=== PATIENT | male | born 1945 | race Caucasian/White ===

== ENCOUNTER 2020-02-17 20:37 | Inpatient (IN) | payer MEDICARE, OTHER ==
[~2020-02-17] VITALS: Ht 180.3 cm; Wt 82.2 kg
[2020-02-17 20:40] VITALS: BP 115/51
[2020-02-17] MEDS ORDERED: KEPPRA500 M4 ORAL (20:55)
[2020-02-17] MEDS ORDERED: ATORVASTATIN CA40 MG ORAL (20:55)
[2020-02-17] MEDS ORDERED: COREG6.25 MG ORAL (20:55)
[2020-02-17] MEDS ORDERED: PROSCAR5 MG ORAL (20:55)
[2020-02-17] MEDS ORDERED: ASPIRIN81 MG ORAL (20:55)
[2020-02-17] MEDS ORDERED: FERROUS SULFAT325 MG ORAL (20:55)
[2020-02-17] MEDS ORDERED: FLOMAX0.4 MG ORAL (20:55)
[2020-02-17] MEDS ORDERED: LANTUS SOL100 UNIT/1 SUBQ ×2 (21:00)
--- NOTE | 2020-02-17 21:19 | Emergency Room Report ---
History of Present Illness General Chief Complaint: Dyspnea/Respdistress Source: Medical Record, EMS Present Illness HPI Patient sent in from longterm [facility] for shortness of breath. Apparently tested positive for COVID-19 a few weeks ago. He was transported by EMS. Allegedly he was satting at 90% on 100% nonrebreather. Blood glucose in the field 450. Initial oxygen saturation 82%. Patient is unable to answer questions. Supporting medical records have little previous medical history. History of diabetes. The patient is unable to answer questions. From his chest x-ray there is a ventriculoperitoneal shunt. 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 Social History Narrative group home facility Reviewed Nursing Documentation: PMH: Agreed; PSxH: Agreed Nursing Documentation-PMH Hx Cardiac Problems: Yes - hyperlipedemia Hx Diabetes: Yes - insulin dependent Review of Systems All Other Systems: limited Physical Exam Vital Signs Date Time Temp Pulse Resp B/P (MAP) Pulse Ox O2 Delivery O2 Flow Rate FiO2 02/17/20 20:38 98.4 88 27 121/66 (84) 90 Non-Rebreather Sp02 EP Interpretation: reviewed, abnormal - As interpreted by me General Appearance: mild distress, lethargic, thin, Chronically Ill Eyes: bilateral eye PERRL ENT: moist mucus membranes Neck: supple Respiratory: respiratory distress, rales Cardiovascular #1: regular rate, rhythm, edema - Hands and feet Cardiovascular #2: 2+ radial (R) Gastrointestinal: no guarding, tenderness - Although patient seems to react to any tactile stimuli, decreased bowel sounds Genitourinary: penis normal Musculoskeletal: back normal, decreased range of motion Neurologic: DTRs symmetric - Decreased, sensory intact - All 4, motor weakness - All 4 Psychiatric: depressed affect Skin: no rash, Decubitus/Ulcer, warm/dry Medical Decision Making PA Attestation Patient presents with dyspnea and hypoxia with history of prior COVID-19 infection. Differential includes acute myocardial infarction, pneumonia, sepsis full interval is COVID-19 of infection from other source, congestive heart failure amongst others. The patient has anasarca. He is satting 100% on a nonrebreather at this time but still tachypneic. Patient placed on a finished metal repairer. Evaluation with EKG, blood cultures, chest x-ray and labs including COVID-19 rapid test. Diagnostic Impression: Primary Impression: Pneumonia involving left lung Qualified Codes: J18.9 - Pneumonia, unspecified organism Additional Impressions: Hypoxia UTI (urinary tract infection) Qualified Codes: N39.0 - Urinary tract infection, site not specified Renal failure Qualified Codes: N19 - Unspecified kidney failure Hyperglycemia COVID-19 Sacral decubitus ulcer Qualified Codes: L89.153 - Pressure ulcer of sacral region, stage 3 Malnutrition Qualified Codes: E43 - Unspecified severe protein-calorie malnutrition ER Course Patient presents with dyspnea and hypoxia with history of COVID-19 a few weeks ago. Differential includes acute myocardial infarction, pneumonia, congestive heart failure, COVID-19, pulmonary embolus and others. Evaluated with EKG, chest x-ray and labs. Patient is satting 100% although dyspneic at this time. Blood gases ordered. The patient also is placed on a finished metal repairer. Complex patient as unable to get history from medical records and patient unable to provide history. EKG without injury. Blood gas O2 of 66 CO2 of 27 and pH is 7.25 with a bicarb of 17. This is mixed respiratory alkalosis primarily with possibly metabolic acidosis. CXR with COPD and bilateral infiltrates, worse on L. Antibiotics ordered 2136 Labs with minimally elevated white count but left shift. Anemia. Renal failure. Elevated C-reactive protein. Adding gent and vancomycin for UTI. Covid + - added dexamethasone. 2226 Patient mentation unchanged. Vital signs stable. Patient admitted to telemetry unit. Prognosis poor. Laboratory Tests Test 02/17/20 20:30 02/17/20 21:03 02/18/20 06:40 02/18/20 10:57 White Blood Count 11.9 K/UL (4.8-10.8) H 11.8 K/UL (4.8-10.8) H Red Blood Count 3.02 M/UL (4.70-6.10) L 2.99 M/UL (4.70-6.10) L Hemoglobin 8.8 G/DL (14.2-18.0) L 8.5 G/DL (14.2-18.0) L Hematocrit 25.5 % (42.0-52.0) L 24.9 % (42.0-52.0) L Mean Corpuscular Volume 84 FL (80-99) 83 FL (80-99) Mean Corpuscular Hemoglobin 29.0 PG (27.0-31.0) 28.3 PG (27.0-31.0) Mean Corpuscular Hemoglobin Concent 34.3 G/DL (32.0-36.0) 33.9 G/DL (32.0-36.0) Red Cell Distribution Width 13.6 % (11.6-14.8) 13.3 % (11.6-14.8) Platelet Count 190 K/UL (150-450) 230 K/UL (150-450) Mean Platelet Volume 7.0 FL (6.5-10.1) 6.6 FL (6.5-10.1) Neutrophils (%) (Auto) % (45.0-75.0) % (45.0-75.0) Lymphocytes (%) (Auto) % (20.0-45.0) % (20.0-45.0) Monocytes (%) (Auto) % (1.0-10.0) % (1.0-10.0) Eosinophils (%) (Auto) % (0.0-3.0) % (0.0-3.0) Basophils (%) (Auto) % (0.0-2.0) % (0.0-2.0) Differential Total Cells Counted 100 100 Neutrophils % (Manual) 87 % (45-75) H 95 % (45-75) H Lymphocytes % (Manual) 8 % (20-45) L 4 % (20-45) L Monocytes % (Manual) 2 % (1-10) 1 % (1-10) Eosinophils % (Manual) 3 % (0-3) 0 % (0-3) Basophils % (Manual) 0 % (0-2) 0 % (0-2) Band Neutrophils 0 % (0-8) 0 % (0-8) Platelet Estimate Adequate Adequate Platelet Morphology Normal Normal Red Blood Cell Morphology Normal D-Dimer 10.95 mg/L FEU (0.00-0.49) H Urine Color Brown Urine Appearance Turbid Urine pH 6 (4.5-8.0) Urine Specific [place] 1.010 (1.005-1.035) Urine Protein 3+ (NEGATIVE) H Urine Glucose (UA) Negative (NEGATIVE) Urine Ketones Negative (NEGATIVE) Urine Blood 5+ (NEGATIVE) H Urine Nitrite Negative (NEGATIVE) Urine Bilirubin Negative (NEGATIVE) Urine Urobilinogen Normal MG/DL (0.0-1.0) Urine Leukocyte Esterase 3+ (NEGATIVE) H Urine RBC Tntc /HPF (0 - 0) H Urine WBC Tntc /HPF (0 - 0) H Urine Squamous Epithelial Cells None /LPF (NONE/OCC) Urine Bacteria Many /HPF (NONE) H Urine Yeast Many /HPF (NONE) H Sodium Level 137 MMOL/L (136-145) 140 MMOL/L (136-145) Potassium Level 4.6 MMOL/L (3.5-5.1) 4.6 MMOL/L (3.5-5.1) Chloride Level 104 MMOL/L (98-107) 106 MMOL/L (98-107) Carbon Dioxide Level 21 MMOL/L (21-32) 22 MMOL/L (21-32) Anion Gap 12 mmol/L (5-15) 12 mmol/L (5-15) Blood Urea Nitrogen 54 mg/dL (7-18) H 52 mg/dL (7-18) H Creatinine 2.8 MG/DL (0.55-1.30) H 2.5 MG/DL (0.55-1.30) H Estimated Glomerular Filtration Rate 22.1 mL/min (>60) 25.2 mL/min (>60) Glucose Level 348 MG/DL (74-106) H 214 MG/DL (74-106) #H Lactic Acid Level 2.00 mmol/L (0.4-2.0) Calcium Level 8.5 MG/DL (8.5-10.1) 8.3 MG/DL (8.5-10.1) L Magnesium Level 1.8 MG/DL (1.8-2.4) Total Bilirubin 0.4 MG/DL (0.2-1.0) Aspartate Amino Transferase (AST) 42 U/L (15-37) H Alanine Aminotransferase (ALT) 21 U/L (12-78) Alkaline Phosphatase 185 U/L (46-116) H Troponin I 0.000 ng/mL (0.000-0.056) C-Reactive Protein, Quantitative 36.4 mg/dL (0.00-0.90) H Pro-B-Type Natriuretic Peptide 4328 pg/mL (0-125) H Total Protein 7.0 G/DL (6.4-8.2) Albumin 1.5 G/DL (3.4-5.0) L Globulin 5.5 g/dL Albumin/Globulin Ratio 0.3 (1.0-2.7) L Arterial Blood pH 7.425 (7.350-7.450) 7.453 (7.350-7.450) Arterial Blood Partial Pressure CO2 27.8 mmHg (35.0-45.0) L 24.1 mmHg (35.0-45.0) *L Arterial Blood Partial Pressure O2 66.6 mmHg (75.0-100.0) L 51.5 mmHg (75.0-100.0) L Arterial Blood HCO3 17.8 mmol/L (22.0-26.0) *L 16.5 mmol/L (22.0-26.0) *L Arterial Blood Oxygen Saturation 92.1 % (95-100) L 86.0 % (95-100) *L Arterial Blood Base Excess -5.7 (-2-2) L -6.4 (-2-2) L Nba Test Positive Positive Hypochromasia 1+ Levetiracetam Level Pending Microbiology Date/Time Source Procedure Growth Status 02/17/20 20:30 Nasopharynx SARS-CoV-2 RdRp Gene Assay - Final Complete Rhythm Strip Diag. Results EP Interpretation: yes Rhythm: NSR, no PVC's, no ectopy Chest X-Ray Diagnostic Results Chest X-Ray Diagnostic Results : Chest X-Ray Ordered: Yes Indication: Shortness of Breath EP Interpretation: Yes Interpretation: no effusion, no pneumothorax, other - bilateral infiltrates , worse on left Impression: Other Last Vital Signs Date Time Temp Pulse Resp B/P (MAP) Pulse Ox O2 Delivery O2 Flow Rate FiO2 02/18/20 08:00 96.6 80 22 109/64 (79) 96 02/18/20 01:15 Non-Rebreather 15.0 02/17/20 23:30 97 Status: improved Disposition: ADMITTED INPATIENT Condition: Serious German Delarosa MD Feb 17, 2020 21:19
[2020-02-17 21:25] LABS: HEMATOCRIT 25.5 % (42.0-52.0); HEMOGLOBIN 8.8 G/DL (14.2-18.0); MEAN CORPUSCULAR VOLUME 84 FL (80-99); PLATELET COUNT 190 K/UL (150-450); RED BLOOD COUNT 3.02 M/UL (4.70-6.10); RED CELL DISTRIBUTION WIDTH 13.6 % (11.6-14.8); WHITE BLOOD COUNT 11.9 K/UL (4.8-10.8)
[2020-02-17 21:33] LABS: ANION GAP 12 mmol/L (5-15); BLOOD UREA NITROGEN 54 mg/dL (7-18); CALCIUM 8.5 MG/DL (8.5-10.1); CARBON DIOXIDE 21 MMOL/L (21-32); CHLORIDE 104 MMOL/L (98-107); CREATININE 2.8 MG/DL (0.55-1.30); POTASSIUM 4.6 MMOL/L (3.5-5.1); SODIUM 137 MMOL/L (136-145)
--- NOTE | 2020-02-17 21:39 | Diagnostic Imaging Report ---
EXAM: XR Chest, 1 View CLINICAL HISTORY: SOB TECHNIQUE: Frontal view of the chest. COMPARISON: No relevant prior studies available. FINDINGS: Lungs: Diffuse airspace opacities, predominantly within the left lung, which may be inflammatory or infectious. Pleural space: Unremarkable. Heart: Unremarkable. Mediastinum: Unremarkable. Bones/joints: Unremarkable. Tubes, lines and devices: Catheter projects over the right lower neck, thorax, and upper abdomen likely PATIENT INSURANCE CLERK shunt catheter. IMPRESSION: Diffuse airspace opacities, predominantly within the left lung, which may be inflammatory or infectious. An element of pulmonary vascular congestion is not excluded.
[2020-02-17 21:43] LABS: ALANINE AMINOTRANSFERASE 21 U/L (12-78); ALBUMIN 1.5 G/DL (3.4-5.0); ALBUMIN/GLOBULIN RATIO 0.3 (1.0-2.7); ALKALINE PHOSPHATASE 185 U/L (46-116); ASPARTATE AMINO TRANSFERASE 42 U/L (15-37); BILIRUBIN,TOTAL 0.4 MG/DL (0.2-1.0)
[2020-02-17] MEDS ORDERED: cefTRIAXone 1 GM in NS 55 ML IVPB ONE (21:45)
[2020-02-17] MEDS ORDERED: Azithromycin 500 MG in D5W 275 ML IVPB ONE (21:45)
[2020-02-17 21:58] LABS: APPEARANCE,URINE TURBID; BILIRUBIN, URINE NEGATIVE (NEGATIVE); GLUCOSE, URINE (UA) NEGATIVE (NEGATIVE); KETONES,URINE NEGATIVE (NEGATIVE); LEUKOCYTE ESTERASE ,URINE 3+ (NEGATIVE); NITRITE,URINE NEGATIVE (NEGATIVE); PH,URINE 6 (4.5-8.0); PROTEIN,URINE 3+ (NEGATIVE); UROBILINOGEN,URINE NORMAL MG/DL (0.0-1.0)
[2020-02-17 22:02] LABS: COLOR,URINE BROWN
[2020-02-17] MEDS ORDERED: Vancomycin 1 GM in NS 275 ML IVPB ONE (22:30)
[2020-02-17] MEDS ORDERED: Gentamicin 120mg/100ml NS INJ 100 ML IVPB ONE (22:30)
[2020-02-17 23:30] VITALS: BP 131/76
[2020-02-18] VITALS (12 sets, daily range): BP systolic 94–136; BP diastolic 33–64
[2020-02-18] MEDS ORDERED: Albuterol 90mcg Inhaler 8gm INH PRN ×2 (03:15→15:37)
[2020-02-18] MEDS ORDERED: NovoLOG Insulin Flexpen SUBQ SCH ×2 (06:30→12:00)
[2020-02-18 07:15] LABS: HEMATOCRIT 24.9 % (42.0-52.0); HEMOGLOBIN 8.5 G/DL (14.2-18.0); MEAN CORPUSCULAR VOLUME 83 FL (80-99); PLATELET COUNT 230 K/UL (150-450); RED BLOOD COUNT 2.99 M/UL (4.70-6.10); RED CELL DISTRIBUTION WIDTH 13.3 % (11.6-14.8); WHITE BLOOD COUNT 11.8 K/UL (4.8-10.8)
[2020-02-18 07:28] LABS: ANION GAP 12 mmol/L (5-15); BLOOD UREA NITROGEN 52 mg/dL (7-18); CALCIUM 8.3 MG/DL (8.5-10.1); CARBON DIOXIDE 22 MMOL/L (21-32); CHLORIDE 106 MMOL/L (98-107); CREATININE 2.5 MG/DL (0.55-1.30); POTASSIUM 4.6 MMOL/L (3.5-5.1); SODIUM 140 MMOL/L (136-145)
[2020-02-18] MEDS: Aspirin Baby 81mg ORAL SCH ×2 (09:00→09:10)
[2020-02-18] MEDS: Carvedilol 6.25mg Tab ORAL SCH ×3 (09:00→20:24)
[2020-02-18] MEDS ORDERED: dexAMETHasone 10mg/ml Inj IV SCH ×2 (09:00→09:55)
[2020-02-18] MEDS: Enoxaparin 30mg Inj SUBQ SCH ×2 (09:00→10:44)
[2020-02-18] MEDS: Tamsulosin 0.4mg cap ORAL SCH ×2 (09:00→09:10)
--- NOTE | 2020-02-18 09:41 | History & Physical ---
History and Physical History & Physicial History and Physical HPI Patient is a 75 year old man,admitted from detention facility with shortness of breath,noted to have Pneumonia, recently tested positive for COVID- 19, O2 sats 90% on 100% nonrebreather. 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 Social History:lives in detention facility Family History: NA Physical Exam Vital Signs Noted Date Time Temp Pulse Resp B/P (MAP) Pulse Ox O2 Delivery O2 Flow Rate FiO2 02/17/20 20:38 98.4 88 27 121/66 (84) 90 Non-Rebreather WDWN NEENT:NCAT Chest: Bilateral rales Heart: HS1, HS2, RRR Abdomen: SNTND Extremities: Well perfused, no edema ENTERPRISE SYSTEMS MANAGER: Intact Impression: COVID 19 Pneumonia i Respiratory failure with Hypoxia Urinary tract infection Renal Impairment Diabetes Hyperlipidemia Previous ASSISTANT CLINICAL DIRECTOR shunt Plan IV Antibiotics Decadrom O2 PRN PPX ISS Monitor labs PTAMedications ID Consultation Renal Consultation EKG ABG: pO2 66 pCO2 27 pH 7.25 bicarb of 17. EKG: Rhythm: NSR, no PVC's, no ectopy Chest X-Ray: no effusion, no pneumothorax, other - bilateral infiltrates, worse on left German Leung MD Feb 18, 2020 09:41
[2020-02-18] MEDS ORDERED: dexAMETHasone 10mg/ml Inj PF*Surgery use IV SCH (09:50)
--- NOTE | 2020-02-18 10:37 | Consultation ---
History of Present Illness General Date patient seen: Feb 18, 2020 Chief Complaint: Dyspnea/Respdistress Present Illness HPI This is a 75-year-old male multiple medical comorbidities who is a long-term resident that presented to [facility] with shortness of breath and respiratory distress. Per report patient was COVID positive a few weeks ago has been recovering since. Desaturating and admitted further care and management. On admission identified to have low body weight hypoalbuminemia malnutrition failure to thrive and unstageable decubitus ulcer and multiple skin concerns and wounds. Surgery called to eval and assist with care. Patient seen, patient evaluated, chart reviewed Allergies: Coded Allergies: IODINE (Verified Allergy, Unknown, 02/17/20) Uncoded Allergies: SHELLFISH (Allergy, Unknown, 02/17/20) Medication History Scheduled Amino Acids/Protein Hydrolys (Pro-Stat Liquid), 30 ML ORAL DAILY, (Reported) Aspirin* (Aspirin*), 81 MG ORAL DAILY, (Reported) Atorvastatin Calcium* (Atorvastatin Calcium*), 40 MG ORAL BEDTIME, (Reported) Carvedilol (Coreg), 6.25 MG ORAL EVERY 12 HOURS, (Reported) Ferrous Sulfate* (Ferrous Sulfate*), 325 MG ORAL DAILY, (Reported) Finasteride* (Proscar*), 5 MG ORAL DAILY, (Reported) Insulin Glargine (Lantus), 0 SUBQ BEDTIME, (Reported) Insulin Glargine (Lantus), 10 SUBQ am, (Reported) Insulin Glargine (Lantus), 20 UNITS SUBQ AFTERNOON, (Reported) Levetiracetam (Keppra), 500 MG ORAL EVERY 12 HOURS, (Reported) Tamsulosin HCl (Flomax), 0.4 MG ORAL DAILY, (Reported) Scheduled PRN Magnesium Hydroxide* (Milk Of Magnesia*), 30 ML ORAL DAILY PRN for Constipation, (Reported) Na Phos,M-B/Na Phos,Di-Ba* (Fleet Enema*), 133 ML RECTAL DAILY PRN for Constipation, (Reported) Patient History Limited by: age, medical condition History Provided By: Medical Record, PMD Healthcare decision maker Resuscitation status Advanced Directive on File Past Medical/Surgical History Past Medical/Surgical History: (1) Hypoxia (2) UTI (urinary tract infection) (3) Pneumonia involving left lung (4) COVID-19 Review of Systems All Other Systems: negative except mentioned in HPI ROS Narrative Limited given patient's medical condition Physical Exam General Appearance: no apparent distress Lines, tubes and drains: peripheral HEENT: normocephalic, atraumatic, anicteric, mucous membranes moist Neck: supple, normal inspection Respiratory/Chest: chest wall non-tender, no respiratory distress, no accessory muscle use, decreased breath sounds Cardiovascular/Chest: normal rate, regular rhythm Abdomen: soft, no organomegaly, no mass, other Genitourinary/Rectal: normal rectal exam Extremities: non-tender, normal inspection, slow capillary refill, trace edema Skin Exam: warm/dry Last 24 Hour Vital Signs Date Time Temp Pulse Resp B/P (MAP) Pulse Ox O2 Delivery O2 Flow Rate FiO2 02/18/20 08:00 96.6 80 22 109/64 (79) 96 02/18/20 07:50 82 02/18/20 04:00 97.9 73 28 136/62 (86) 93 02/18/20 01:15 Non-Rebreather 15.0 02/18/20 00:00 96.8 84 28 104/64 (77) 92 02/18/20 00:00 78 02/17/20 23:30 98.4 78 30 131/76 97 Non-Rebreather 15.0 97 02/17/20 23:30 98.4 78 30 131/76 97 Non-Rebreather 15.0 97 02/17/20 20:40 87 25 Non-Rebreather 15.0 97 02/17/20 20:40 98.6 87 25 115/51 97 Non-Rebreather 15.0 02/17/20 20:38 98.4 88 27 121/66 (84) 90 Non-Rebreather Intake and Output 02/17/20 02/18/20 19:00 07:00 Intake Total 1000 ml Output Total 550 ml Balance 450 ml Intake IV Total 1000 ml Output Urine Total 550 ml Laboratory Tests Test 02/17/20 20:30 02/17/20 21:03 02/18/20 06:40 White Blood Count 11.9 K/UL (4.8-10.8) H 11.8 K/UL (4.8-10.8) H Red Blood Count 3.02 M/UL (4.70-6.10) L 2.99 M/UL (4.70-6.10) L Hemoglobin 8.8 G/DL (14.2-18.0) L 8.5 G/DL (14.2-18.0) L Hematocrit 25.5 % (42.0-52.0) L 24.9 % (42.0-52.0) L Mean Corpuscular Volume 84 FL (80-99) 83 FL (80-99) Mean Corpuscular Hemoglobin 29.0 PG (27.0-31.0) 28.3 PG (27.0-31.0) Mean Corpuscular Hemoglobin Concent 34.3 G/DL (32.0-36.0) 33.9 G/DL (32.0-36.0) Red Cell Distribution Width 13.6 % (11.6-14.8) 13.3 % (11.6-14.8) Platelet Count 190 K/UL (150-450) 230 K/UL (150-450) Mean Platelet Volume 7.0 FL (6.5-10.1) 6.6 FL (6.5-10.1) Neutrophils (%) (Auto) % (45.0-75.0) % (45.0-75.0) Lymphocytes (%) (Auto) % (20.0-45.0) % (20.0-45.0) Monocytes (%) (Auto) % (1.0-10.0) % (1.0-10.0) Eosinophils (%) (Auto) % (0.0-3.0) % (0.0-3.0) Basophils (%) (Auto) % (0.0-2.0) % (0.0-2.0) Differential Total Cells Counted 100 Neutrophils % (Manual) 87 % (45-75) H Pending Lymphocytes % (Manual) 8 % (20-45) L Pending Monocytes % (Manual) 2 % (1-10) Eosinophils % (Manual) 3 % (0-3) Basophils % (Manual) 0 % (0-2) Band Neutrophils 0 % (0-8) Platelet Estimate Adequate Pending Platelet Morphology Normal Pending Red Blood Cell Morphology Normal D-Dimer 10.95 mg/L FEU (0.00-0.49) H Urine Color Brown Urine Appearance Turbid Urine pH 6 (4.5-8.0) Urine Specific [place] 1.010 (1.005-1.035) Urine Protein 3+ (NEGATIVE) H Urine Glucose (UA) Negative (NEGATIVE) Urine Ketones Negative (NEGATIVE) Urine Blood 5+ (NEGATIVE) H Urine Nitrite Negative (NEGATIVE) Urine Bilirubin Negative (NEGATIVE) Urine Urobilinogen Normal MG/DL (0.0-1.0) Urine Leukocyte Esterase 3+ (NEGATIVE) H Urine RBC Tntc /HPF (0 - 0) H Urine WBC Tntc /HPF (0 - 0) H Urine Squamous Epithelial Cells None /LPF (NONE/OCC) Urine Bacteria Many /HPF (NONE) H Urine Yeast Many /HPF (NONE) H Sodium Level 137 MMOL/L (136-145) 140 MMOL/L (136-145) Potassium Level 4.6 MMOL/L (3.5-5.1) 4.6 MMOL/L (3.5-5.1) Chloride Level 104 MMOL/L (98-107) 106 MMOL/L (98-107) Carbon Dioxide Level 21 MMOL/L (21-32) 22 MMOL/L (21-32) Anion Gap 12 mmol/L (5-15) 12 mmol/L (5-15) Blood Urea Nitrogen 54 mg/dL (7-18) H 52 mg/dL (7-18) H Creatinine 2.8 MG/DL (0.55-1.30) H 2.5 MG/DL (0.55-1.30) H Estimat Glomerular Filtration Rate 22.1 mL/min (>60) 25.2 mL/min (>60) Glucose Level 348 MG/DL (74-106) H 214 MG/DL (74-106) #H Lactic Acid Level 2.00 mmol/L (0.4-2.0) Calcium Level 8.5 MG/DL (8.5-10.1) 8.3 MG/DL (8.5-10.1) L Magnesium Level 1.8 MG/DL (1.8-2.4) Total Bilirubin 0.4 MG/DL (0.2-1.0) Aspartate Amino Transf (AST/SGOT) 42 U/L (15-37) H Alanine Aminotransferase (ALT/SGPT) 21 U/L (12-78) Alkaline Phosphatase 185 U/L (46-116) H Troponin I 0.000 ng/mL (0.000-0.056) C-Reactive Protein, Quantitative 36.4 mg/dL (0.00-0.90) H Pro-B-Type Natriuretic Peptide 4328 pg/mL (0-125) H Total Protein 7.0 G/DL (6.4-8.2) Albumin 1.5 G/DL (3.4-5.0) L Globulin 5.5 g/dL Albumin/Globulin Ratio 0.3 (1.0-2.7) L Arterial Blood pH 7.425 (7.350-7.450) Arterial Blood Partial Pressure CO2 27.8 mmHg (35.0-45.0) L Arterial Blood Partial Pressure O2 66.6 mmHg (75.0-100.0) L Arterial Blood HCO3 17.8 mmol/L (22.0-26.0) *L Arterial Blood Oxygen Saturation 92.1 % (95-100) L Arterial Blood Base Excess -5.7 (-2-2) L Nba Test Positive Levetiracetam (Keppra) Level Pending Microbiology Date/Time Source Procedure Growth Status 02/17/20 20:30 Nasopharynx SARS-CoV-2 RdRp Gene Assay - Final Complete Height (Feet): 5 Height (Inches): 11.00 Weight (Pounds): 175 Medications Current Medications Medications (Trade) Dose Ordered Sig/Carlos A Route PRN Reason Start Time Stop Time Status Last Admin Dose Admin Acetaminophen (Tylenol) 650 mg Q6H PRN ORAL For Headache 02/18/20 03:15 03/19/20 03:14 Albuterol Sulfate (Proventil MDI) 2 puff Q6H PRN INH Shortness of Breath 02/18/20 03:15 05/18/20 03:14 Aspirin (ASA) 81 mg DAILY ORAL 02/18/20 09:00 04/03/20 08:59 Atorvastatin Calcium (Lipitor) 40 mg BEDTIME ORAL 02/18/20 21:00 05/18/20 20:59 Carvedilol (Coreg) 6.25 mg EVERY 12 HOURS ORAL 02/18/20 09:00 03/19/20 08:59 Ceftriaxone Sodium 1 gm/ Dextrose 55 ml @ 110 mls/hr Q24H IVPB 02/18/20 21:00 02/25/20 20:59 Dexamethasone Sodium Phosphate (Decadron 10mg/ ml Inj) 6 mg DAILY IV 02/18/20 09:55 05/18/20 09:54 02/18/20 10:15 Dextrose (Dextrose 50%) 25 ml Q30M PRN IV Hypoglycemia 02/18/20 03:15 05/18/20 03:14 Dextrose (Dextrose 50%) 50 ml Q30M PRN IV Hypoglycemia 02/18/20 03:15 05/18/20 03:14 Enoxaparin Sodium (Lovenox) 30 mg DAILY SUBQ 02/18/20 09:00 05/18/20 08:59 Ferrous Sulfate (Feosol) 325 mg DAILY ORAL 02/18/20 09:00 05/18/20 08:59 Finasteride (Proscar) 5 mg DAILY ORAL 02/18/20 09:00 05/18/20 08:59 Insulin Aspart (NovoLOG) BEFORE MEALS AND HS SUBQ 02/18/20 06:30 05/18/20 06:29 02/18/20 06:21 Ivermectin (StromectoL) 15 mg ONCE ORAL 02/18/20 12:00 02/18/20 14:00 Levetiracetam (Keppra) 500 mg EVERY 12 HOURS ORAL 02/18/20 09:00 04/03/20 08:59 Ondansetron HCl (Zofran) 4 mg Q6H PRN IVP Nausea & Vomiting 02/18/20 03:15 03/19/20 03:14 Tamsulosin HCl (Flomax) 0.4 mg DAILY ORAL 02/18/20 09:00 03/19/20 08:59 Assessment/Plan Problem List: (1) Sacral decubitus ulcer Assessment & Plan: Pt presented on admission with multiple Pressure injuries, MASD. Ecchymotic areas R ventral forearm. Unstageable Sacral Pressure injury(L)11cm x (W)9.5cm. Base of wound is 25% kinza, 75%scattered areas of mixed soft necrosis and slough. Borders are irregular and macerated. Periwound is indurated with additional erythema and shearing. Partial thickness Pressure injury upper R Buttocks(L)2.2cm x (W)1.5cm. Base of wound is moist and viable. Edges flat and adherent to base of wound. MASD Suprapubis, penis ,scrotum ,Elvia-anal,and medial/ posterior upper aspects of both thighs.Affected areas are erythematous with scattered satellite lesions. Full thickness ulcer distal /medial L lower ext in close proximity medial malleolus(L)1.8cm x (W)1.6cm. Base of wound is 90% dry brown eschar cap ,10% kinza . Edges adherent to base of wound. No elevation in skin temp, erythema or induration periwound. R Heel is boggy with non-Blanchable erythema. L Heel is boggy but blanchable. R 1st metatarsal nailbed and matrix are black.NO erythema or changes in skin temp or colour noted to R 1st metatarsal. Tx.Plan: Cleanse Sacral wound with Saline. Apply TheraHoney. Apply Moisture Barrier Periwound. Cover with Optifoam drsg Daily and prn. Cleanse wound distal/ medial L lower ext. Apply Cavilon Skin Barrier periwound. Cover with Optifoam drsg. Change every 3 days and prn. Apply Cavilon Skin Barrier to bilat heels and Malleoli. Cover each site with Optifoam drsg. Change every 7 days and prn. Reposition at least every 2hours or as tolerated. Off-load heels with pillow. APM/SHAREE Mattress overlay. ICD Codes: L89.159 - Pressure ulcer of sacral region, unspecified stage SNOMED: 649870310 Qualifiers: Qualified Codes: L89.153 - Pressure ulcer of sacral region, stage 3 (2) Malnutrition ICD Codes: E46 - Unspecified protein-calorie malnutrition SNOMED: 71287650 Qualifiers: Qualified Codes: E43 - Unspecified severe protein-calorie malnutrition (3) Leukocytosis ICD Codes: D72.829 - Elevated white blood cell count, unspecified SNOMED: 041970724, 342240798 (4) Hypoxia ICD Codes: R09.02 - Hypoxemia SNOMED: 452354120 (5) UTI (urinary tract infection) ICD Codes: N39.0 - Urinary tract infection, site not specified SNOMED: 25813199 Qualifiers: Qualified Codes: N39.0 - Urinary tract infection, site not specified (6) Pneumonia involving left lung ICD Codes: J18.9 - Pneumonia, unspecified organism SNOMED: 630892439 Qualifiers: Qualified Codes: J18.9 - Pneumonia, unspecified organism (7) COVID-19 ICD Codes: U07.1 - COVID-19 SNOMED: 797194924 Jorge Howard Feb 18, 2020 10:37
[2020-02-18] MEDS ORDERED: D5 1/2NS 1,000 ML IV SCH ×2 (10:45→12:00)
--- NOTE | 2020-02-18 10:59 | Consultation ---
DATE OF CONSULTATION: 02/18/2020 INFECTIOUS DISEASES CONSULTATION CONSULTING PHYSICIAN: Celena Fernando MD. REFERRING PHYSICIAN: Alfred Chavez MD. REASON FOR CONSULTATION: COVID-19 pneumonia. HISTORY OF PRESENTING ILLNESS: This is a 75-year-old gentleman with history of diabetes, hyperlipidemia, SECURITY ARCHITECT shunt placement who was transferred from a [facility] facility with shortness of breath. He recently tested positive for COVID-19 pneumonia. He was also noted to have a urinary tract infection and an Infectious Diseases consultation has been obtained for antibiotics. PAST MEDICAL HISTORY: 1. History of diabetes. 2. Hyperlipidemia. 3. History of SECURITY ARCHITECT shunt placement. SOCIAL HISTORY: Unknown. FAMILY HISTORY: Unknown. REVIEW OF SYSTEMS: Unable to obtain currently. MEDICATIONS: As an inpatient he is on dexamethasone. He received ceftriaxone, azithromycin, atorvastatin, aspirin, carvedilol, ferrous sulfate, Proscar, Keppra, Flomax, enoxaparin, insulin, Tylenol, Zofran, albuterol, vancomycin, and gentamicin. ALLERGIES: To iodine and shellfish noted. PHYSICAL EXAMINATION: VITAL SIGNS: Temperature of 96.6, T-max of 98.6, pulse of 80, respiratory rate 22, blood pressure 109/64, O2 saturation of 96% on 15 liters of oxygen on a non-rebreather mask. Examination deferred due to COVID-19 LABORATORY AND DIAGNOSTIC DATA: White count 11.8, hemoglobin 8.5, hematocrit 24.9, MCV 83, platelet count of 230. Sodium 140, potassium 4.3, chloride 106, bicarb 22, BUN 52, creatinine 2.5, glucose 214. Calcium 8.3, total bilirubin 0.4, AST 42, ALT 21, alkaline phosphatase 185. Troponin 0. C-reactive protein 36. Beta natriuretic peptide 4328. Total protein 7. Albumin 1.5. UA showing too numerous to count white cells. COVID-19 test is positive. Chest x-ray is showing diffuse airspace opacities predominantly within the left lung, which may be inflammatory or infectious, an element of pulmonary vascular congestion is not excluded. ASSESSMENT: The patient is a 75-year-old gentleman with history of diabetes, hyperlipidemia, SECURITY ARCHITECT shunt placement, who comes in with shortness of breath and is found to have. 1. COVID-19 pneumonia. He is on 15 liters of oxygen on a non-rebreather mask, saturating at 96%. 2. Urinary tract infection. 3. Diabetes. 4. Hyperlipidemia. 5. Status post SECURITY ARCHITECT shunt placement. 6. Renal failure. PLAN: 1. Continue ceftriaxone. 2. Discontinue azithromycin. 3. Continue dexamethasone day #2. 4. The patient does not qualify for Remdesivir. 5. We will start the patient on ivermectin one dose today. 6. We will order urine cultures. 7. We will follow up cultures and adjust antibiotics accordingly. 8. Continue isolation. I would like to thank, Dr. Chavez for this consultation. Celena Fernando M.D. DR: Marifer JOB#: [id number] CC: Alfred Chavez M.D.; Fax#: [phone]
[2020-02-18] MEDS ORDERED: levETIRAcetam 500mg/NS100ml 100 ML IVPB SCH (11:30)
[2020-02-18] MEDS: D5 1/2NS 1,000 ML IV SCH (15:42)
[2020-02-18] MEDS: NovoLOG Insulin Flexpen SUBQ SCH ×2 (17:47→23:36)
--- NOTE | 2020-02-18 18:00 | Consultation ---
DATE OF CONSULTATION: 02/18/2020 REFERRING PHYSICIAN: Alfred Chavez M.D. REASON FOR CONSULTATION: Acute kidney injury, creatinine 2.8. HISTORY OF PRESENT ILLNESS: The patient is a 75-year-old gentleman with multiple medical comorbidities, who resides in a senior care home facility. Presented for further evaluation and care of progressive shortness of breath, respiratory distress. Had previously tested positive for COVID a few weeks ago and had been recovering. However, recently, he started to become hypoxic. As such, he was admitted for treatment and management of COVID pneumonia. Noted to have an elevated creatinine of 2.8, was initiated on IV fluids, and his creatinine today is 2.5. ALLERGIES: Iodine and shellfish. PAST MEDICAL HISTORY: 1. Hyperlipidemia. 2. Hypertension. 3. BPH. 4. Diabetes mellitus. 5. Seizures FAMILY HISTORY: Positive for hypertension. PAST SURGICAL HISTORY: Noncontributory. REVIEW OF SYSTEMS: The patient is currently in COVID isolation. LABORATORY DATA: Labs dated February 18, 2020, sodium 140, potassium 4.6, creatinine 2.5. Hemoglobin 8.5, white cell count 11.8, and platelet count 330. PHYSICAL EXAMINATION: VITAL SIGNS: Blood pressure 109/64, respiratory rate 22, pulse 80, temperature 96.6, on 15 L oxygen nonrebreather. Physical exam deferred as the patient is in COVID isolation and for preservation of PPEs. ASSESSMENT AND PLAN: 1. Acute kidney injury. Baseline creatinine is unknown. The patient has improved with gentle hydration from 2.8 to 2.5. At this time, we will order a renal ultrasound to rule out any obstructive uropathy. Continue hydration. Avoid nephrotoxins. Continue to treat underlying pneumonia and systemic inflammatory system can cause proximal tubular damage and worsening ALMAZ. 2. COVID-19 pneumonia, 15 L of oxygen nonrebreather. The patient is being treated with ceftriaxone, azithromycin, dexamethasone, and remdesivir. 3. Diabetes mellitus. Management per primary care physician with some therapy and Accu-Chek. 4. Hyperlipidemia. The patient is on statin. Harinder Goodwin MD DR: VIANEY JOB#: [id number] CC:
[2020-02-18] MEDS: Pantoprazole Inj IVP SCH (20:22)
[2020-02-18] MEDS: Atorvastatin 80mg tab ORAL SCH (20:25)
[2020-02-18] MEDS ORDERED: Atorvastatin 80mg tab ORAL SCH (21:00)
[2020-02-18] MEDS ORDERED: cefTRIAXone 1 GM in D5W 55 ML IVPB SCH ×4 (21:00)
[2020-02-18] MEDS ORDERED: Azithromycin 500 MG in D5W 275 ML IV SCH (22:00)
[2020-02-18] MEDS: levETIRAcetam 500mg/NS100ml 100 ML IVPB SCH (23:13)
[2020-02-19] VITALS (24 sets, daily range): BP systolic 92–124; BP diastolic 35–102
[2020-02-19 05:24] LABS: HEMATOCRIT 22.5 % (42.0-52.0); HEMOGLOBIN 7.6 G/DL (14.2-18.0); MEAN CORPUSCULAR VOLUME 84 FL (80-99); PLATELET COUNT 250 K/UL (150-450); RED BLOOD COUNT 2.68 M/UL (4.70-6.10); RED CELL DISTRIBUTION WIDTH 13.7 % (11.6-14.8); WHITE BLOOD COUNT 11.4 K/UL (4.8-10.8)
[2020-02-19] MEDS: NovoLOG Insulin Flexpen SUBQ SCH ×4 (06:05→23:17)
[2020-02-19 06:28] LABS: ANION GAP 16 mmol/L (5-15); BLOOD UREA NITROGEN 67 mg/dL (7-18); CALCIUM 7.8 MG/DL (8.5-10.1); CARBON DIOXIDE 17 MMOL/L (21-32); CHLORIDE 106 MMOL/L (98-107); CREATININE 2.7 MG/DL (0.55-1.30); POTASSIUM 4.6 MMOL/L (3.5-5.1); SODIUM 139 MMOL/L (136-145)
[2020-02-19] MEDS: Aspirin Baby 81mg ORAL SCH (08:09)
[2020-02-19] MEDS: Tamsulosin 0.4mg cap ORAL SCH (08:09)
[2020-02-19] MEDS: Carvedilol 6.25mg Tab ORAL SCH ×2 (08:09→20:13)
[2020-02-19] MEDS: Enoxaparin 30mg Inj SUBQ SCH (08:10)
[2020-02-19] MEDS: Pantoprazole Inj IVP SCH ×2 (08:52→20:13)
[2020-02-19] MEDS: dexAMETHasone 10mg/ml Inj IV SCH (08:52)
[2020-02-19] MEDS ORDERED: dexAMETHasone 10mg/ml Inj PF*Surgery use IV SCH (09:00)
--- NOTE | 2020-02-19 10:42 | Infectious Diseases Prog Note ---
Assessment/Plan Assessment/Plan A: 1. COVID-19 pneumonia 2. Urinary tract infection. 3. Diabetes. 4. Hyperlipidemia. 5. Status post PIECE DYEING MACHINE TENDER shunt placement. 6. Acute renal failure. 7. Gram negative sepsis 8. Hypoxic respiratory failure 9. Pressure ulcers PLAN: 1. Discontinue ceftriaxone. 2. Start on Zosyn 3. Continue dexamethasone day #3 4. The patient does not qualify for Remdesivir. 5. Received ivermectin one dose today. 6. We will follow up cultures and adjust antibiotics accordingly. 7. Continue isolation. Subjective ROS Limited/Unobtainable: Yes Constitutional: Reports: other - transferred to ICU Neurologic: Reports: confusion, other - on restraint Allergies: Coded Allergies: IODINE (Verified Allergy, Unknown, 02/17/20) Uncoded Allergies: SHELLFISH (Allergy, Unknown, 02/17/20) Objective Last 24 Hour Vital Signs Date Time Temp Pulse Resp B/P (MAP) Pulse Ox O2 Delivery O2 Flow Rate FiO2 02/19/20 09:00 97 42 101/49 (66) 89 02/19/20 08:00 98.6 102 32 124/45 (71) 88 02/19/20 07:28 90 High Flow 50.0 100 02/19/20 07:00 104 30 123/53 (76) 91 02/19/20 06:00 97 41 110/46 (67) 93 02/19/20 05:00 96 40 100/45 (63) 93 02/19/20 04:00 102 30 115/61 (79) 92 02/19/20 04:00 102 02/19/20 03:30 95 High Flow 50.0 100 02/19/20 03:00 Nasal Cannula 55.0 02/19/20 03:00 94 42 102/47 (65) 92 02/19/20 02:00 89 40 97/40 (59) 92 02/19/20 01:00 91 38 95/42 (59) 92 02/19/20 00:00 98.6 89 29 92/46 (61) 88 02/19/20 00:00 89 02/18/20 23:30 94 High Flow 50.0 100 02/18/20 23:00 88 32 94/42 (59) 93 02/18/20 22:00 87 31 95/50 (65) 93 9/5/20 21:00 Nasal Cannula 55.0 02/18/20 21:00 87 28 96/45 (62) 92 02/18/20 20:24 86 100/44 02/18/20 20:00 82 02/18/20 20:00 98.5 82 32 100/44 (62) 99 02/18/20 19:30 95 High Flow 55.0 100 02/18/20 19:00 82 32 106/44 (64) 99 02/18/20 18:00 80 30 106/47 (66) 96 02/18/20 17:00 84 32 106/33 (57) 97 02/18/20 16:00 75 02/18/20 16:00 Nasal Cannula 55.0 02/18/20 16:00 98.1 76 37 106/40 (62) 100 02/18/20 15:50 77 02/18/20 15:40 97 High Flow 55.0 100 02/18/20 12:00 98.7 67 24 104/56 (72) 93 Height (Feet): 5 Height (Inches): 11.00 Weight (Pounds): 175 HEENT: mucous membranes moist Respiratory/Chest: decreased breath sounds, other - oxygen by high flow nasal cannula & rebreathing mask Cardiovascular: normal rate Abdomen: soft, non tender Extremities: no edema Skin: ulcers Neurologic/Psychiatric: unresponsiveness Microbiology Date/Time Source Procedure Growth Status 02/17/20 20:15 Blood Blood Culture - Preliminary NO GROWTH AFTER 24 HOURS Resulted 02/17/20 20:15 Blood Blood Culture - Preliminary Resulted 02/17/20 20:30 Nasopharynx SARS-CoV-2 RdRp Gene Assay - Final Complete 02/17/20 20:30 Urine,Clean Catch Urine Culture - Preliminary Gram Negative Bacillus 1 Resulted Laboratory Tests Test 02/18/20 10:57 02/19/20 04:00 02/19/20 07:31 Arterial Blood pH 7.453 (7.350-7.450) 7.460 (7.350-7.450) Arterial Blood Partial Pressure CO2 24.1 mmHg (35.0-45.0) *L 20.0 mmHg (35.0-45.0) *L Arterial Blood Partial Pressure O2 51.5 mmHg (75.0-100.0) L 55.0 mmHg (75.0-100.0) L Arterial Blood HCO3 16.5 mmol/L (22.0-26.0) *L 13.9 mmol/L (22.0-26.0) *L Arterial Blood Oxygen Saturation 86.0 % (95-100) *L 86.1 % (95-100) *L Arterial Blood Base Excess -6.4 (-2-2) L -8.7 (-2-2) L Nba Test Positive Positive White Blood Count 11.4 K/UL (4.8-10.8) H Red Blood Count 2.68 M/UL (4.70-6.10) L Hemoglobin 7.6 G/DL (14.2-18.0) L Hematocrit 22.5 % (42.0-52.0) L Mean Corpuscular Volume 84 FL (80-99) Mean Corpuscular Hemoglobin 28.3 PG (27.0-31.0) Mean Corpuscular Hemoglobin Concent 33.6 G/DL (32.0-36.0) Red Cell Distribution Width 13.7 % (11.6-14.8) Platelet Count 250 K/UL (150-450) Mean Platelet Volume 6.4 FL (6.5-10.1) L Neutrophils (%) (Auto) % (45.0-75.0) Lymphocytes (%) (Auto) % (20.0-45.0) Monocytes (%) (Auto) % (1.0-10.0) Eosinophils (%) (Auto) % (0.0-3.0) Basophils (%) (Auto) % (0.0-2.0) Neutrophils % (Manual) Pending Lymphocytes % (Manual) Pending Platelet Estimate Pending Platelet Morphology Pending Sodium Level 139 MMOL/L (136-145) Potassium Level 4.6 MMOL/L (3.5-5.1) Chloride Level 106 MMOL/L (98-107) Carbon Dioxide Level 17 MMOL/L (21-32) L Anion Gap 16 mmol/L (5-15) H Blood Urea Nitrogen 67 mg/dL (7-18) H Creatinine 2.7 MG/DL (0.55-1.30) H Estimat Glomerular Filtration Rate 23.1 mL/min (>60) Glucose Level 304 MG/DL (74-106) H Calcium Level 7.8 MG/DL (8.5-10.1) L Current Medications Medications (Trade) Dose Ordered Sig/Carlos A Route PRN Reason Start Time Stop Time Status Last Admin Dose Admin Acetaminophen (Tylenol) 650 mg Q6H PRN ORAL For Headache 02/18/20 15:36 03/19/20 15:35 Albuterol Sulfate (Proventil MDI) 2 puff Q6H PRN INH Shortness of Breath 02/18/20 15:37 05/18/20 15:36 Aspirin (ASA) 81 mg DAILY ORAL 02/19/20 09:00 04/03/20 08:59 Atorvastatin Calcium (Lipitor) 40 mg BEDTIME ORAL 02/18/20 21:00 05/18/20 20:59 Carvedilol (Coreg) 6.25 mg EVERY 12 HOURS ORAL 02/18/20 21:00 03/19/20 08:59 Ceftriaxone Sodium 1 gm/ Dextrose 55 ml @ 110 mls/hr Q24H IVPB 02/18/20 21:00 02/25/20 20:59 02/18/20 20:24 Dexamethasone Sodium Phosphate (Decadron 10mg/ ml Inj) 6 mg DAILY IV 02/19/20 09:00 05/18/20 09:54 02/19/20 08:52 Dextrose (Dextrose 50%) 25 ml Q30M PRN IV Hypoglycemia 02/18/20 15:45 05/18/20 03:14 Dextrose (Dextrose 50%) 50 ml Q30M PRN IV Hypoglycemia 02/18/20 15:45 05/18/20 03:14 Dextrose/Sodium Chloride 1,000 ml @ 40 mls/hr Q24H IV 02/18/20 15:45 03/19/20 11:59 02/18/20 15:42 Enoxaparin Sodium (Lovenox) 30 mg DAILY SUBQ 02/19/20 09:00 05/18/20 08:59 Ferrous Sulfate (Feosol) 325 mg DAILY ORAL 02/19/20 09:00 05/18/20 08:59 Finasteride (Proscar) 5 mg DAILY ORAL 02/19/20 09:00 05/18/20 08:59 Insulin Aspart (NovoLOG) Q6HR SUBQ 02/18/20 18:00 05/18/20 06:29 02/19/20 06:05 Levetiracetam 100 ml @ 400 mls/hr Q12H IVPB 02/18/20 23:30 05/18/20 11:29 02/18/20 23:13 Ondansetron HCl (Zofran) 4 mg Q6H PRN IVP Nausea & Vomiting 02/18/20 21:15 03/19/20 03:14 Pantoprazole (Protonix) 40 mg EVERY 12 HOURS IVP 02/18/20 21:00 03/19/20 20:59 02/19/20 08:52 Tamsulosin HCl (Flomax) 0.4 mg DAILY ORAL 02/19/20 09:00 03/19/20 08:59 Sarkis Clinton MD Feb 19, 2020 10:42
--- NOTE | 2020-02-19 11:06 | Diagnostic Imaging Report ---
EXAM: XR Chest, 1 View CLINICAL HISTORY: SCREEN TECHNIQUE: Frontal view of the chest. 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 Lungs/pleura: Similar patchy consolidations throughout the left lung. Patchy opacities in the right upper lung and right lower lung. Left pleural effusion. Heart/mediastinum: Stable enlargement of the cardiomediastinal silhouette. Soft tissues: Unremarkable. Bones: No acute fracture. Upper abdomen: Normal. IMPRESSION: Similar patchy consolidations throughout the left lung. Patchy opacities in the right upper lung and right lower lung. Left pleural effusion.
[2020-02-19] MEDS: levETIRAcetam 500mg/NS100ml 100 ML IVPB SCH ×2 (12:03→22:36)
--- NOTE | 2020-02-19 12:13 | Pulmonolgy Critical Care Note ---
Critical Care - Asmt/Plan Assessment/Plan: Pulmonary CCM Progress Note HPI Patient is a 75 year old man,admitted from care home facility with shortness of breath,noted to have Pneumonia, recently tested positive for COVID- 19, O2 sats 90% on 100% nonrebreather. Noted to have UTI Now in ICU,being proned as toletrated On 100% FIO2 Allergies: IODINE SHELLFISH Past Medical History: Diabetes,Hyperlipidemia,COAL CUTTER shunt Past Surgical History: COAL CUTTER shunt Social History:lives in care home facility Family History: NA Physical Exam Vital Signs Noted Deferred Covid 19 Impression: COVID 19 Pneumonia i Respiratory failure with Hypoxia Urinary tract infection Renal Impairment - renalfollowing Diabetes Hyperlipidemia Previous COAL CUTTER shunt Plan IV Antibiotics/Decadron per ID IVF O2 PRN PPX ISS Monitor labs PTAMedications Renal following Labs :noted EKG: Rhythm: NSR, no PVC's, no ectopy Chest X-Ray: no effusion, no pneumothorax, other - bilateral infiltrates, worse on left Critical Care - Objective Last 24 Hour Vital Signs Date Time Temp Pulse Resp B/P (MAP) Pulse Ox O2 Delivery O2 Flow Rate FiO2 02/19/20 11:00 92 39 108/39 (62) 94 02/19/20 10:00 96 39 114/48 (70) 85 02/19/20 09:00 97 42 101/49 (66) 89 02/19/20 08:00 Nasal Cannula 55.0 Nasal Cannula 55.0 02/19/20 08:00 55.0 100 02/19/20 08:00 98.6 102 32 124/45 (71) 88 02/19/20 08:00 101 02/19/20 07:28 90 High Flow 50.0 100 02/19/20 07:00 104 30 123/53 (76) 91 02/19/20 06:00 97 41 110/46 (67) 93 02/19/20 05:00 96 40 100/45 (63) 93 02/19/20 04:00 102 30 115/61 (79) 92 02/19/20 04:00 102 02/19/20 03:30 95 High Flow 50.0 100 02/19/20 03:00 Nasal Cannula 55.0 02/19/20 03:00 94 42 102/47 (65) 92 02/19/20 02:00 89 40 97/40 (59) 92 02/19/20 01:00 91 38 95/42 (59) 92 02/19/20 00:00 98.6 89 29 92/46 (61) 88 02/19/20 00:00 89 02/18/20 23:30 94 High Flow 50.0 100 02/18/20 23:00 88 32 94/42 (59) 93 02/18/20 22:00 87 31 95/50 (65) 93 02/18/20 21:00 Nasal Cannula 55.0 02/18/20 21:00 87 28 96/45 (62) 92 02/18/20 20:24 86 100/44 02/18/20 20:00 82 02/18/20 20:00 98.5 82 32 100/44 (62) 99 02/18/20 19:30 95 High Flow 55.0 100 02/18/20 19:00 82 32 106/44 (64) 99 02/18/20 18:00 80 30 106/47 (66) 96 02/18/20 17:00 84 32 106/33 (57) 97 02/18/20 16:00 75 02/18/20 16:00 Nasal Cannula 55.0 02/18/20 16:00 98.1 76 37 106/40 (62) 100 02/18/20 15:50 77 02/18/20 15:40 97 High Flow 55.0 100 Micro: Microbiology Date/Time Source Procedure Growth Status 02/17/20 20:15 Blood Blood Culture - Preliminary NO GROWTH AFTER 24 HOURS Resulted 02/17/20 20:15 Blood Blood Culture - Preliminary Resulted 02/17/20 20:30 Nasopharynx SARS-CoV-2 RdRp Gene Assay - Final Complete 02/17/20 20:30 Urine,Clean Catch Urine Culture - Preliminary Gram Negative Bacillus 1 Resulted Accucheck: 333 Critical Care - Subjective ROS Limited/Unobtainable: Yes Condition: critical FI02: 100 I&O: Intake and Output 02/18/20 02/19/20 19:00 07:00 Intake Total 132 ml 440 ml Output Total 620 ml 270 ml Balance -488 ml 170 ml Intake IV Total 132 ml 440 ml Output Urine Total 620 ml 270 ml # Bowel Movements 1 German Leung MD Feb 19, 2020 12:13
--- NOTE | 2020-02-19 14:10 | Nephrology Progress Note ---
Assessment/Plan Assessment/Plan: ASSESSMENT AND PLAN: 1. ALMAZ- Baseline creatinine is unknown. -renal ultrasound to rule out any obstructive uropathy. -Avoid nephrotoxins. Continue to treat underlying pneumonia as systemic inflammatory system can cause proximal tubular damage and worsening ALMAZ. - fluid bolus and monitor UOP - place hold parameters on BP medications 2. COVID-19 pneumonia, 15 L of oxygen nonrebreather. -Management per ID 3. Respiratory Failure- intubated on the ventilator Subjective Date patient seen: Feb 19, 2020 Time patient seen: 14:04 ROS Limited/Unobtainable: Yes Allergies: Coded Allergies: IODINE (Verified Allergy, Unknown, 02/17/20) Uncoded Allergies: SHELLFISH (Allergy, Unknown, 02/17/20) Subjective Patient in COVID isolation Objective Last 24 Hour Vital Signs Date Time Temp Pulse Resp B/P (MAP) Pulse Ox O2 Delivery O2 Flow Rate FiO2 02/19/20 13:00 98 39 107/51 (69) 91 02/19/20 12:00 93 02/19/20 12:00 98.5 93 39 107/44 (65) 92 02/19/20 11:00 92 39 108/39 (62) 94 02/19/20 10:00 96 39 114/48 (70) 85 02/19/20 09:00 97 42 101/49 (66) 89 02/19/20 08:00 Nasal Cannula 55.0 Nasal Cannula 55.0 02/19/20 08:00 55.0 100 02/19/20 08:00 98.6 102 32 124/45 (71) 88 02/19/20 08:00 101 02/19/20 07:28 90 High Flow 50.0 100 02/19/20 07:00 104 30 123/53 (76) 91 02/19/20 06:00 97 41 110/46 (67) 93 02/19/20 05:00 96 40 100/45 (63) 93 02/19/20 04:00 102 30 115/61 (79) 92 02/19/20 04:00 102 02/19/20 03:30 95 High Flow 50.0 100 02/19/20 03:00 Nasal Cannula 55.0 02/19/20 03:00 94 42 102/47 (65) 92 02/19/20 02:00 89 40 97/40 (59) 92 02/19/20 01:00 91 38 95/42 (59) 92 02/19/20 00:00 98.6 89 29 92/46 (61) 88 02/19/20 00:00 89 02/18/20 23:30 94 High Flow 50.0 100 02/18/20 23:00 88 32 94/42 (59) 93 02/18/20 22:00 87 31 95/50 (65) 93 02/18/20 21:00 Nasal Cannula 55.0 02/18/20 21:00 87 28 96/45 (62) 92 02/18/20 20:24 86 100/44 02/18/20 20:00 82 02/18/20 20:00 98.5 82 32 100/44 (62) 99 02/18/20 19:30 95 High Flow 55.0 100 02/18/20 19:00 82 32 106/44 (64) 99 02/18/20 18:00 80 30 106/47 (66) 96 02/18/20 17:00 84 32 106/33 (57) 97 02/18/20 16:00 75 02/18/20 16:00 Nasal Cannula 55.0 02/18/20 16:00 98.1 76 37 106/40 (62) 100 02/18/20 15:50 77 02/18/20 15:40 97 High Flow 55.0 100 Intake and Output 02/18/20 02/19/20 19:00 07:00 Intake Total 132 ml 440 ml Output Total 620 ml 270 ml Balance -488 ml 170 ml Intake IV Total 132 ml 440 ml Output Urine Total 620 ml 270 ml # Bowel Movements 1 Laboratory Tests 02/19/20 04:00: White Blood Count 11.4H, Red Blood Count 2.68L, Hemoglobin 7.6L, Hematocrit 22.5L, Mean Corpuscular Volume 84, Mean Corpuscular Hemoglobin 28.3, Mean Corpuscular Hemoglobin Concent 33.6, Red Cell Distribution Width 13.7, Platelet Count 250, Mean Platelet Volume 6.4L, Neutrophils (%) (Auto) , Lymphocytes (%) ( Auto) , Monocytes (%) (Auto) , Eosinophils (%) (Auto) , Basophils (%) (Auto) , Differential Total Cells Counted 100, Neutrophils % (Manual) 90H, Lymphocytes % (Manual) 7L, Monocytes % (Manual) 3, Eosinophils % (Manual) 0, Basophils % ( Manual) 0, Band Neutrophils 0, Platelet Estimate Adequate, Platelet Morphology Normal, Hypochromasia 1+, Sodium Level 139, Potassium Level 4.6, Chloride Level 106, Carbon Dioxide Level 17L, Anion Gap 16H, Blood Urea Nitrogen 67H, Creatinine 2.7H, Estimat Glomerular Filtration Rate 23.1, Glucose Level 304H, Calcium Level 7.8L 02/19/20 07:31: Arterial Blood pH 7.460H, Arterial Blood Partial Pressure CO2 20.0*L, Arterial Blood Partial Pressure O2 55.0L, Arterial Blood HCO3 13.9*L, Arterial Blood Oxygen Saturation 86.1*L, Arterial Blood Base Excess -8.7L, Nba Test Positive Height (Feet): 5 Height (Inches): 11.00 Weight (Pounds): 175 Objective COVID isolation Harinder Goodwin MD Feb 19, 2020 14:10
[2020-02-19] MEDS ORDERED: FLEET ENEMA133 ML RECTAL (14:31)
[2020-02-19] MEDS ORDERED: MILK OF MA400 MG/51 ORAL (14:31)
[2020-02-19] MEDS ORDERED: LANTUS SOL100 UNIT/1 SUBQ (14:31)
[2020-02-19] MEDS ORDERED: PRO-STAT LIQUID30 ML ORAL (14:32)
[2020-02-19] MEDS: D5 1/2NS 1,000 ML IV SCH (14:45)
[2020-02-19] MEDS: Piperacillin/Tazobactam 3.375 GM in NS 110 ML IVPB SCH (20:14)
[2020-02-19] MEDS: Atorvastatin 80mg tab ORAL SCH (20:14)
[2020-02-20] VITALS (24 sets, daily range): BP systolic 74–128; BP diastolic 30–68
[2020-02-20] MEDS: NovoLOG Insulin Flexpen SUBQ SCH ×3 (05:24→17:51)
[2020-02-20 06:02] LABS: ANION GAP 13 mmol/L (5-15); BLOOD UREA NITROGEN 79 mg/dL (7-18); CALCIUM 7.6 MG/DL (8.5-10.1); CARBON DIOXIDE 15 MMOL/L (21-32); CHLORIDE 106 MMOL/L (98-107); POTASSIUM 4.4 MMOL/L (3.5-5.1); SODIUM 134 MMOL/L (136-145)
[2020-02-20 06:09] LABS: HEMATOCRIT 24.6 % (42.0-52.0); MEAN CORPUSCULAR VOLUME 85 FL (80-99); PLATELET COUNT 248 K/UL (150-450); RED CELL DISTRIBUTION WIDTH 13.7 % (11.6-14.8); WHITE BLOOD COUNT 12.6 K/UL (4.8-10.8)
[2020-02-20] MEDS: dexAMETHasone 10mg/ml Inj IV SCH (08:36)
[2020-02-20] MEDS: Pantoprazole Inj IVP SCH ×2 (08:36→20:15)
[2020-02-20] MEDS: Carvedilol 6.25mg Tab ORAL SCH ×2 (08:37→19:43)
[2020-02-20] MEDS: Piperacillin/Tazobactam 3.375 GM in NS 110 ML IVPB SCH ×2 (08:37→20:16)
[2020-02-20] MEDS: Tamsulosin 0.4mg cap ORAL SCH (08:37)
[2020-02-20] MEDS: Aspirin Baby 81mg ORAL SCH (08:37)
[2020-02-20] MEDS: Enoxaparin 30mg Inj SUBQ SCH (08:40)
--- NOTE | 2020-02-20 10:29 | Infectious Diseases Prog Note ---
Assessment/Plan Assessment/Plan antibiotics : none A 1. COVID 19 pneumonia on 55 liters O2, saturation 90 percent 2. diabetes mellitus 3. gram negative sepsis 4. klebsiella UTI 5. renal failure P 1. s/p ivermectin [id number] 2. d/c decadron 3. start solumedrol 4. continue zosyn 5. will follow up cultures Subjective ROS Limited/Unobtainable: Yes Allergies: Coded Allergies: IODINE (Verified Allergy, Unknown, 02/17/20) Uncoded Allergies: SHELLFISH (Allergy, Unknown, 02/17/20) Objective Last 24 Hour Vital Signs Date Time Temp Pulse Resp B/P (MAP) Pulse Ox O2 Delivery O2 Flow Rate FiO2 02/20/20 08:37 100 122/53 02/20/20 07:00 100 34 122/53 (76) 90 02/20/20 06:00 98 31 116/54 (74) 90 02/20/20 05:00 92 39 110/54 (72) 88 02/20/20 04:00 98.6 88 32 108/53 (71) 89 02/20/20 04:00 55.0 100 02/20/20 04:00 85 02/20/20 03:32 89 High Flow 55.0 100 02/20/20 03:00 92 31 74/54 (61) 86 02/20/20 02:00 84 34 104/30 (54) 97 02/20/20 01:00 83 30 106/36 (59) 99 02/20/20 00:00 81 02/20/20 00:00 55.0 100 02/20/20 00:00 98.3 82 34 90/50 (63) 95 02/19/20 23:48 94 High Flow 50.0 100 02/19/20 23:00 80 34 109/35 (59) 94 02/19/20 22:00 79 29 103/50 (67) 91 02/19/20 21:00 80 35 99/45 (63) 95 02/19/20 20:13 87 103/46 02/19/20 20:06 97 High Flow 50.0 100 02/19/20 20:00 98.2 83 33 103/46 (65) 96 02/19/20 20:00 87 02/19/20 20:00 55.0 100 02/19/20 19:00 89 33 111/44 (66) 93 02/19/20 18:00 85 36 97/45 (62) 94 02/19/20 17:00 87 34 105/56 (72) 97 02/19/20 16:00 Nasal Cannula 55.0 Nasal Cannula 55.0 02/19/20 16:00 87 02/19/20 16:00 55.0 100 02/19/20 16:00 98.4 90 28 121/102 (108) 93 02/19/20 15:00 97 38 118/37 (64) 94 02/19/20 14:00 95 36 107/50 (69) 96 02/19/20 13:00 98 39 107/51 (69) 91 02/19/20 12:00 93 02/19/20 12:00 55.0 100 02/19/20 12:00 Nasal Cannula 55.0 Nasal Cannula 55.0 02/19/20 12:00 98.5 93 39 107/44 (65) 92 02/19/20 11:00 92 39 108/39 (62) 94 Height (Feet): 5 Height (Inches): 11.00 Weight (Pounds): 175 Microbiology Date/Time Source Procedure Growth Status 02/17/20 20:15 Blood Blood Culture - Preliminary NO GROWTH AFTER 48 HOURS Resulted 02/17/20 20:15 Blood Blood Culture - Preliminary Gram Negative Bacillus 1 Resulted 02/19/20 09:00 Body Fluid Gram Stain Pending Resulted 02/19/20 09:00 Body Fluid Body Fluid Culture - Preliminary NO GROWTH AFTER 24 HOURS Resulted 02/17/20 20:30 Nasopharynx SARS-CoV-2 RdRp Gene Assay - Final Complete 02/17/20 20:30 Urine,Clean Catch Urine Culture - Final Klebsiella Pneumoniae Complete 02/17/20 20:30 Rectum VRE Culture - Final NO VANCOMYCIN RESISTANT ENTEROCOCCUS ... Complete Laboratory Tests Test 02/20/20 04:38 02/20/20 08:16 White Blood Count 12.6 K/UL (4.8-10.8) H Red Blood Count 2.90 M/UL (4.70-6.10) L Hemoglobin 8.0 G/DL (14.2-18.0) L Hematocrit 24.6 % (42.0-52.0) L Mean Corpuscular Volume 85 FL (80-99) Mean Corpuscular Hemoglobin 27.5 PG (27.0-31.0) Mean Corpuscular Hemoglobin Concent 32.6 G/DL (32.0-36.0) Red Cell Distribution Width 13.7 % (11.6-14.8) Platelet Count 248 K/UL (150-450) Mean Platelet Volume 5.5 FL (6.5-10.1) L Neutrophils (%) (Auto) % (45.0-75.0) Lymphocytes (%) (Auto) % (20.0-45.0) Monocytes (%) (Auto) % (1.0-10.0) Eosinophils (%) (Auto) % (0.0-3.0) Basophils (%) (Auto) % (0.0-2.0) Differential Total Cells Counted 100 Neutrophils % (Manual) 92 % (45-75) H Lymphocytes % (Manual) 2 % (20-45) L Monocytes % (Manual) 6 % (1-10) Eosinophils % (Manual) 0 % (0-3) Basophils % (Manual) 0 % (0-2) Band Neutrophils 0 % (0-8) Platelet Estimate Adequate Platelet Morphology Normal Hypochromasia 2+ Anisocytosis 1+ Sodium Level 134 MMOL/L (136-145) L Potassium Level 4.4 MMOL/L (3.5-5.1) Chloride Level 106 MMOL/L (98-107) Carbon Dioxide Level 15 MMOL/L (21-32) L Anion Gap 13 mmol/L (5-15) Blood Urea Nitrogen 79 mg/dL (7-18) H Creatinine 3.0 MG/DL (0.55-1.30) H Estimat Glomerular Filtration Rate 20.4 mL/min (>60) Glucose Level 356 MG/DL (74-106) H Calcium Level 7.6 MG/DL (8.5-10.1) L Arterial Blood pH 7.337 (7.350-7.450) Arterial Blood Partial Pressure CO2 29.0 mmHg (35.0-45.0) L Arterial Blood Partial Pressure O2 54.1 mmHg (75.0-100.0) L Arterial Blood HCO3 15.2 mmol/L (22.0-26.0) *L Arterial Blood Oxygen Saturation 82.9 % (95-100) *L Arterial Blood Base Excess -9.6 (-2-2) *L Nba Test Positive Current Medications Medications (Trade) Dose Ordered Sig/Carlos A Route PRN Reason Start Time Stop Time Status Last Admin Dose Admin Acetaminophen (Tylenol) 650 mg Q6H PRN ORAL For Headache 02/18/20 15:36 03/19/20 15:35 Albuterol Sulfate (Proventil MDI) 2 puff Q6H PRN INH Shortness of Breath 02/18/20 15:37 05/18/20 15:36 Aspirin (ASA) 81 mg DAILY ORAL 02/19/20 09:00 04/03/20 08:59 Atorvastatin Calcium (Lipitor) 40 mg BEDTIME ORAL 02/18/20 21:00 05/18/20 20:59 Carvedilol (Coreg) 6.25 mg EVERY 12 HOURS ORAL 02/18/20 21:00 03/19/20 08:59 Dexamethasone Sodium Phosphate (Decadron 10mg/ ml Inj) 6 mg DAILY IV 02/19/20 09:00 05/18/20 09:54 02/20/20 08:36 Dextrose (Dextrose 50%) 25 ml Q30M PRN IV Hypoglycemia 02/18/20 15:45 05/18/20 03:14 Dextrose (Dextrose 50%) 50 ml Q30M PRN IV Hypoglycemia 02/18/20 15:45 05/18/20 03:14 Dextrose/Sodium Chloride 1,000 ml @ 40 mls/hr Q24H IV 02/18/20 15:45 03/19/20 11:59 02/19/20 14:45 Enoxaparin Sodium (Lovenox) 30 mg DAILY SUBQ 02/19/20 09:00 05/18/20 08:59 02/20/20 08:40 Ferrous Sulfate (Feosol) 325 mg DAILY ORAL 02/19/20 09:00 05/18/20 08:59 Finasteride (Proscar) 5 mg DAILY ORAL 02/19/20 09:00 05/18/20 08:59 Insulin Aspart (NovoLOG) Q6HR SUBQ 02/18/20 18:00 05/18/20 06:29 02/20/20 05:24 Levetiracetam 100 ml @ 400 mls/hr Q12H IVPB 02/18/20 23:30 05/18/20 11:29 02/19/20 22:36 Ondansetron HCl (Zofran) 4 mg Q6H PRN IVP Nausea & Vomiting 02/18/20 21:15 03/19/20 03:14 Pantoprazole (Protonix) 40 mg EVERY 12 HOURS IVP 02/18/20 21:00 03/19/20 20:59 02/20/20 08:36 Piperacillin Sod/ Tazobactam Sod 3.375 gm/Sodium Chloride 110 ml @ 27.5 mls/hr EVERY 12 HOURS IVPB 02/19/20 21:00 02/24/20 20:59 02/20/20 08:37 Tamsulosin HCl (Flomax) 0.4 mg DAILY ORAL 02/19/20 09:00 03/19/20 08:59 Celena Fernando MD Feb 20, 2020 10:29
[2020-02-20] MEDS: levETIRAcetam 500mg/NS100ml 100 ML IVPB SCH ×2 (11:18→23:21)
[2020-02-20] MEDS: D5 1/2NS 1,000 ML IV SCH (11:18)
--- NOTE | 2020-02-20 12:35 | Surgery Progress Note ---
Surgery Progress Note Subjective Additional Comments declining respiratory insufficiency desaturating ill appearing Objective Last 24 Hour Vital Signs Date Time Temp Pulse Resp B/P (MAP) Pulse Ox O2 Delivery O2 Flow Rate FiO2 02/20/20 12:00 99 02/20/20 12:00 99.0 98 38 127/58 (81) 86 02/20/20 12:00 55.0 100 02/20/20 11:00 97 38 119/68 (85) 88 02/20/20 10:00 99 41 128/56 (80) 90 02/20/20 09:00 95 38 110/52 (71) 90 02/20/20 08:37 100 122/53 02/20/20 08:00 98.9 95 36 108/50 (69) 92 02/20/20 08:00 55.0 100 02/20/20 08:00 96 02/20/20 07:00 93 High Flow 55.0 100 02/20/20 07:00 100 34 122/53 (76) 90 02/20/20 06:00 98 31 116/54 (74) 90 02/20/20 05:00 92 39 110/54 (72) 88 02/20/20 04:00 98.6 88 32 108/53 (71) 89 02/20/20 04:00 55.0 100 02/20/20 04:00 85 02/20/20 03:32 89 High Flow 55.0 100 02/20/20 03:00 92 31 74/54 (61) 86 02/20/20 02:00 84 34 104/30 (54) 97 02/20/20 01:00 83 30 106/36 (59) 99 02/20/20 00:00 81 02/20/20 00:00 55.0 100 02/20/20 00:00 98.3 82 34 90/50 (63) 95 02/19/20 23:48 94 High Flow 50.0 100 02/19/20 23:00 80 34 109/35 (59) 94 02/19/20 22:00 79 29 103/50 (67) 91 02/19/20 21:00 80 35 99/45 (63) 95 02/19/20 20:13 87 103/46 02/19/20 20:06 97 High Flow 50.0 100 02/19/20 20:00 98.2 83 33 103/46 (65) 96 02/19/20 20:00 87 02/19/20 20:00 55.0 100 02/19/20 19:00 89 33 111/44 (66) 93 02/19/20 18:00 85 36 97/45 (62) 94 02/19/20 17:00 87 34 105/56 (72) 97 02/19/20 16:00 Nasal Cannula 55.0 Nasal Cannula 55.0 02/19/20 16:00 87 02/19/20 16:00 55.0 100 02/19/20 16:00 98.4 90 28 121/102 (108) 93 02/19/20 15:00 97 38 118/37 (64) 94 02/19/20 14:00 95 36 107/50 (69) 96 02/19/20 13:00 98 39 107/51 (69) 91 I&O Intake and Output 02/19/20 02/20/20 19:00 07:00 Intake Total 1080 ml 400 ml Output Total 306 ml 245 ml Balance 774 ml 155 ml Intake IV Total 1080 ml 400 ml Output Urine Total 306 ml 245 ml Dressing: other Wound: other Cardiovascular: RSR Respiratory: decreased breath sounds Abdomen: soft, non-tender, present bowel sounds Extremities: no edema, no tenderness, no cyanosis Laboratory Tests Test 02/20/20 04:38 02/20/20 08:16 02/20/20 10:12 White Blood Count 12.6 K/UL (4.8-10.8) H Red Blood Count 2.90 M/UL (4.70-6.10) L Hemoglobin 8.0 G/DL (14.2-18.0) L Hematocrit 24.6 % (42.0-52.0) L Mean Corpuscular Volume 85 FL (80-99) Mean Corpuscular Hemoglobin 27.5 PG (27.0-31.0) Mean Corpuscular Hemoglobin Concent 32.6 G/DL (32.0-36.0) Red Cell Distribution Width 13.7 % (11.6-14.8) Platelet Count 248 K/UL (150-450) Mean Platelet Volume 5.5 FL (6.5-10.1) L Neutrophils (%) (Auto) % (45.0-75.0) Lymphocytes (%) (Auto) % (20.0-45.0) Monocytes (%) (Auto) % (1.0-10.0) Eosinophils (%) (Auto) % (0.0-3.0) Basophils (%) (Auto) % (0.0-2.0) Differential Total Cells Counted 100 Neutrophils % (Manual) 92 % (45-75) H Lymphocytes % (Manual) 2 % (20-45) L Monocytes % (Manual) 6 % (1-10) Eosinophils % (Manual) 0 % (0-3) Basophils % (Manual) 0 % (0-2) Band Neutrophils 0 % (0-8) Platelet Estimate Adequate Platelet Morphology Normal Hypochromasia 2+ Anisocytosis 1+ Sodium Level 134 MMOL/L (136-145) L Potassium Level 4.4 MMOL/L (3.5-5.1) Chloride Level 106 MMOL/L (98-107) Carbon Dioxide Level 15 MMOL/L (21-32) L Anion Gap 13 mmol/L (5-15) Blood Urea Nitrogen 79 mg/dL (7-18) H Creatinine 3.0 MG/DL (0.55-1.30) H Estimat Glomerular Filtration Rate 20.4 mL/min (>60) Glucose Level 356 MG/DL (74-106) H Calcium Level 7.6 MG/DL (8.5-10.1) L Arterial Blood pH 7.337 (7.350-7.450) 7.328 (7.350-7.450) Arterial Blood Partial Pressure CO2 29.0 mmHg (35.0-45.0) L 29.7 mmHg (35.0-45.0) L Arterial Blood Partial Pressure O2 54.1 mmHg (75.0-100.0) L 51.2 mmHg (75.0-100.0) L Arterial Blood HCO3 15.2 mmol/L (22.0-26.0) *L 15.2 mmol/L (22.0-26.0) *L Arterial Blood Oxygen Saturation 82.9 % (95-100) *L 83.0 % (95-100) *L Arterial Blood Base Excess -9.6 (-2-2) *L -9.6 (-2-2) *L Nba Test Positive Positive Plan Problems: (1) Sacral decubitus ulcer Assessment & Plan: Pt presented on admission with multiple Pressure injuries, MASD. Ecchymotic areas R ventral forearm. Unstageable Sacral Pressure injury(L)11cm x (W)9.5cm. Base of wound is 25% kinza, 75%scattered areas of mixed soft necrosis and slough. Borders are irregular and macerated. Periwound is indurated with additional erythema and shearing. Partial thickness Pressure injury upper R Buttocks(L)2.2cm x (W)1.5cm. Base of wound is moist and viable. Edges flat and adherent to base of wound. MASD Suprapubis, penis ,scrotum ,Elvia-anal,and medial/ posterior upper aspects of both thighs.Affected areas are erythematous with scattered satellite lesions. Full thickness ulcer distal /medial L lower ext in close proximity medial malleolus(L)1.8cm x (W)1.6cm. Base of wound is 90% dry brown eschar cap ,10% kinza . Edges adherent to base of wound. No elevation in skin temp, erythema or induration periwound. R Heel is boggy with non-Blanchable erythema. L Heel is boggy but blanchable. R 1st metatarsal nailbed and matrix are black.NO erythema or changes in skin temp or colour noted to R 1st metatarsal. Tx.Plan: Cleanse Sacral wound with Saline. Apply TheraHoney. Apply Moisture Barrier Periwound. Cover with Optifoam drsg Daily and prn. Cleanse wound distal/ medial L lower ext. Apply Cavilon Skin Barrier periwound. Cover with Optifoam drsg. Change every 3 days and prn. Apply Cavilon Skin Barrier to bilat heels and Malleoli. Cover each site with Optifoam drsg. Change every 7 days and prn. Reposition at least every 2hours or as tolerated. Off-load heels with pillow. APM/SHAREE Mattress overlay. (2) Malnutrition (3) Leukocytosis Assessment & Plan: COVID + declining respiratory declining family has decided for DNI/dNR no line no intubation prognosis guarded (4) Hypoxia (5) UTI (urinary tract infection) (6) Pneumonia involving left lung (7) COVID-19 Assessment & Plan: ++ (8) Hyperglycemia (9) Renal failure Jorge Howard Feb 20, 2020 12:35
[2020-02-20] MEDS ORDERED: Acetaminophen 650 MG SUPP RECTAL PRN (15:30)
[2020-02-20] MEDS: Sodium Bicarbonate 100 ML in D5W 1000ml 1,000 ML IV SCH (17:29)
[2020-02-20] MEDS ORDERED: Insulin Reg 100 units Premix 100 ML IVPB SCH ×2 (18:00→19:30)
[2020-02-20] MEDS ORDERED: NovoLOG Insulin Flexpen SUBQ SCH (18:00)
--- NOTE | 2020-02-20 19:40 | Nephrology Progress Note ---
Assessment/Plan Problem List: (1) Acute hypoxemic respiratory failure due to COVID-19 (2) Severe sepsis (3) Metabolic acidosis (4) ALMAZ (acute kidney injury) (5) COVID-19 (6) Pneumonia involving left lung (7) UTI (urinary tract infection) (8) Hypoxia Plan bicarb drip, avoid excess fluids, SS inulin additional lispro, now dnr Subjective ROS Limited/Unobtainable: Yes Objective Objective Last 24 Hour Vital Signs Date Time Temp Pulse Resp B/P (MAP) Pulse Ox O2 Delivery O2 Flow Rate FiO2 02/20/20 18:42 92 High Flow 55.0 100 02/20/20 18:00 96 37 114/53 (73) 90 02/20/20 17:00 98.9 98 38 124/57 (79) 90 02/20/20 16:00 55.0 100 02/20/20 16:00 Nasal Cannula 55.0 Nasal Cannula 55.0 02/20/20 16:00 96 02/20/20 16:00 96 37 117/58 (77) 90 02/20/20 15:00 97 39 122/56 (78) 90 02/20/20 14:40 89 High Flow 55.0 100 02/20/20 14:00 96 39 109/51 (70) 90 02/20/20 13:00 97 29 112/52 (72) 90 02/20/20 12:00 99 02/20/20 12:00 99.0 98 38 127/58 (81) 86 02/20/20 12:00 Nasal Cannula 55.0 Nasal Cannula 55.0 02/20/20 12:00 55.0 100 02/20/20 11:00 97 38 119/68 (85) 88 02/20/20 10:36 89 High Flow 55.0 100 02/20/20 10:00 99 41 128/56 (80) 90 02/20/20 09:00 95 38 110/52 (71) 90 02/20/20 08:37 100 122/53 02/20/20 08:00 98.9 95 36 108/50 (69) 92 02/20/20 08:00 55.0 100 02/20/20 08:00 Nasal Cannula 55.0 Nasal Cannula 55.0 02/20/20 08:00 96 02/20/20 07:00 93 High Flow 55.0 100 02/20/20 07:00 100 34 122/53 (76) 90 02/20/20 06:00 98 31 116/54 (74) 90 02/20/20 05:00 92 39 110/54 (72) 88 02/20/20 04:00 98.6 88 32 108/53 (71) 89 02/20/20 04:00 55.0 100 02/20/20 04:00 85 02/20/20 03:32 89 High Flow 55.0 100 02/20/20 03:00 92 31 74/54 (61) 86 02/20/20 02:00 84 34 104/30 (54) 97 02/20/20 01:00 83 30 106/36 (59) 99 02/20/20 00:00 81 02/20/20 00:00 55.0 100 02/20/20 00:00 98.3 82 34 90/50 (63) 95 02/19/20 23:48 94 High Flow 50.0 100 02/19/20 23:00 80 34 109/35 (59) 94 02/19/20 22:00 79 29 103/50 (67) 91 02/19/20 21:00 80 35 99/45 (63) 95 02/19/20 20:13 87 103/46 02/19/20 20:06 97 High Flow 50.0 100 02/19/20 20:00 98.2 83 33 103/46 (65) 96 02/19/20 20:00 87 02/19/20 20:00 55.0 100 Intake and Output 02/19/20 02/20/20 19:00 07:00 Intake Total 1080 ml 400 ml Output Total 306 ml 245 ml Balance 774 ml 155 ml Intake IV Total 1080 ml 400 ml Output Urine Total 306 ml 245 ml Laboratory Tests 02/20/20 04:38: White Blood Count 12.6H, Red Blood Count 2.90L, Hemoglobin 8.0L, Hematocrit 24.6L, Mean Corpuscular Volume 85, Mean Corpuscular Hemoglobin 27.5, Mean Corpuscular Hemoglobin Concent 32.6, Red Cell Distribution Width 13.7, Platelet Count 248, Mean Platelet Volume 5.5L, Neutrophils (%) (Auto) , Lymphocytes (%) ( Auto) , Monocytes (%) (Auto) , Eosinophils (%) (Auto) , Basophils (%) (Auto) , Differential Total Cells Counted 100, Neutrophils % (Manual) 92H, Lymphocytes % (Manual) 2L, Monocytes % (Manual) 6, Eosinophils % (Manual) 0, Basophils % ( Manual) 0, Band Neutrophils 0, Platelet Estimate Adequate, Platelet Morphology Normal, Hypochromasia 2+, Anisocytosis 1+, Sodium Level 134L, Potassium Level 4.4, Chloride Level 106, Carbon Dioxide Level 15L, Anion Gap 13, Blood Urea Nitrogen 79H, Creatinine 3.0H, Estimat Glomerular Filtration Rate 20.4, Glucose Level 356H, Calcium Level 7.6L 02/20/20 08:16: Arterial Blood pH 7.337L, Arterial Blood Partial Pressure CO2 29.0L, Arterial Blood Partial Pressure O2 54.1L, Arterial Blood HCO3 15.2*L, Arterial Blood Oxygen Saturation 82.9*L, Arterial Blood Base Excess -9.6*L, Nba Test Positive 02/20/20 10:12: Arterial Blood pH 7.328L, Arterial Blood Partial Pressure CO2 29.7L, Arterial Blood Partial Pressure O2 51.2L, Arterial Blood HCO3 15.2*L, Arterial Blood Oxygen Saturation 83.0*L, Arterial Blood Base Excess -9.6*L, Nba Test Positive 02/20/20 19:00: Sodium Level [Pending], Potassium Level [Pending], Chloride Level [Pending], Carbon Dioxide Level [Pending], Blood Urea Nitrogen [Pending], Creatinine [ Pending], Estimat Glomerular Filtration Rate [Pending], Glucose Level [Pending] , Calcium Level [Pending], Hemoglobin A1c [Pending] Height (Feet): 5 Height (Inches): 11.00 Weight (Pounds): 175 General Appearance: severe distress EENT: normal ENT inspection Neck: non-tender Cardiovascular: regular rhythm, tachycardia Respiratory/Chest: accessory muscle use, rhonchi - bilaterally Abdomen: no organomegaly Extremities: trace edema Neurologic: disoriented Jose F Patel MD Feb 20, 2020 19:40
[2020-02-20] MEDS: Atorvastatin 80mg tab ORAL SCH (19:44)
--- NOTE | 2020-02-20 20:01 | Pulmonolgy Critical Care Note ---
Critical Care - Asmt/Plan Assessment/Plan: Pulmonary CCM Progress Note HPI Patient is a 75 year old man,[facility] with shortness of breath,noted to have Pneumonia, recently tested positive for COVID- 19, O2 sats 90% on 100% nonrebreather. Noted to have UTI Now in ICU,being proned as tolerated DW Winston Goodson and Daughter in law-patient DNAR/DNI per previously expressed wishes On 100% FIO2 Allergies: IODINE SHELLFISH Past Medical History: Diabetes,Hyperlipidemia,PHARMACEUTICAL BOTANIST shunt Past Surgical History: PHARMACEUTICAL BOTANIST shunt Social History:lives in prison facility Family History: NA Physical Exam Vital Signs Noted Deferred Covid 19 Impression: COVID 19 Pneumonia i Respiratory failure with Hypoxia Urinary tract infection Renal Impairment - renalfollowing Diabetes Hyperlipidemia Previous PHARMACEUTICAL BOTANIST shunt Plan DNAR/DNI per previously expressed wishes IV Antibiotics/Decadron per ID IVF O2 PRN Prone as tolerated PPX ISS Central line PRN Monitor labs PTAMedications Renal following Labs :noted EKG: Rhythm: NSR, no PVC's, no ectopy Chest X-Ray: no effusion, no pneumothorax, other - bilateral infiltrates, worse on left Critical Care - Objective Last 24 Hour Vital Signs Date Time Temp Pulse Resp B/P (MAP) Pulse Ox O2 Delivery O2 Flow Rate FiO2 02/20/20 19:00 97 37 108/52 (70) 93 02/20/20 18:42 92 High Flow 55.0 100 02/20/20 18:00 96 37 114/53 (73) 90 02/20/20 17:00 98.9 98 38 124/57 (79) 90 02/20/20 16:00 55.0 100 02/20/20 16:00 Nasal Cannula 55.0 Nasal Cannula 55.0 02/20/20 16:00 96 02/20/20 16:00 96 37 117/58 (77) 90 02/20/20 15:00 97 39 122/56 (78) 90 02/20/20 14:40 89 High Flow 55.0 100 02/20/20 14:00 96 39 109/51 (70) 90 02/20/20 13:00 97 29 112/52 (72) 90 02/20/20 12:00 99 02/20/20 12:00 99.0 98 38 127/58 (81) 86 9/7/20 12:00 Nasal Cannula 55.0 Nasal Cannula 55.0 02/20/20 12:00 55.0 100 02/20/20 11:00 97 38 119/68 (85) 88 02/20/20 10:36 89 High Flow 55.0 100 02/20/20 10:00 99 41 128/56 (80) 90 02/20/20 09:00 95 38 110/52 (71) 90 02/20/20 08:37 100 122/53 02/20/20 08:00 98.9 95 36 108/50 (69) 92 02/20/20 08:00 55.0 100 02/20/20 08:00 Nasal Cannula 55.0 Nasal Cannula 55.0 02/20/20 08:00 96 02/20/20 07:00 93 High Flow 55.0 100 02/20/20 07:00 100 34 122/53 (76) 90 02/20/20 06:00 98 31 116/54 (74) 90 02/20/20 05:00 92 39 110/54 (72) 88 02/20/20 04:00 98.6 88 32 108/53 (71) 89 02/20/20 04:00 55.0 100 02/20/20 04:00 85 02/20/20 03:32 89 High Flow 55.0 100 02/20/20 03:00 92 31 74/54 (61) 86 02/20/20 02:00 84 34 104/30 (54) 97 02/20/20 01:00 83 30 106/36 (59) 99 02/20/20 00:00 81 02/20/20 00:00 55.0 100 02/20/20 00:00 98.3 82 34 90/50 (63) 95 02/19/20 23:48 94 High Flow 50.0 100 02/19/20 23:00 80 34 109/35 (59) 94 02/19/20 22:00 79 29 103/50 (67) 91 02/19/20 21:00 80 35 99/45 (63) 95 02/19/20 20:13 87 103/46 02/19/20 20:06 97 High Flow 50.0 100 02/19/20 20:00 98.2 83 33 103/46 (65) 96 02/19/20 20:00 87 02/19/20 20:00 55.0 100 Micro: Microbiology Date/Time Source Procedure Growth Status 02/17/20 20:15 Blood Blood Culture - Preliminary NO GROWTH AFTER 48 HOURS Resulted 02/17/20 20:15 Blood Blood Culture - Preliminary Gram Negative Bacillus 1 Resulted 02/19/20 09:00 Body Fluid Gram Stain - Final Resulted 02/19/20 09:00 Body Fluid Body Fluid Culture - Preliminary NO GROWTH AFTER 24 HOURS Resulted 02/17/20 20:30 Nasal Nares MRSA Culture - Final Staphylococcus Aureus - Mrsa Complete 02/17/20 20:30 Nasopharynx SARS-CoV-2 RdRp Gene Assay - Final Complete 02/17/20 20:30 Urine,Clean Catch Urine Culture - Final Klebsiella Pneumoniae Complete 02/17/20 20:30 Rectum VRE Culture - Final NO VANCOMYCIN RESISTANT ENTEROCOCCUS ... Complete Accucheck: 391 Critical Care - Subjective ROS Limited/Unobtainable: No FI02: 100 I&O: Intake and Output 02/19/20 02/20/20 19:00 07:00 Intake Total 1080 ml 440 ml Output Total 306 ml 245 ml Balance 774 ml 195 ml Intake IV Total 1080 ml 440 ml Output Urine Total 306 ml 245 ml German Leung MD Feb 20, 2020 20:01
[2020-02-20] MEDS: Solu-MEDROL 125mg Inj IVP SCH (20:16)
[2020-02-20 20:23] LABS: ANION GAP 16 mmol/L (5-15); BLOOD UREA NITROGEN 85 mg/dL (7-18); CALCIUM 7.8 MG/DL (8.5-10.1); CARBON DIOXIDE 17 MMOL/L (21-32); CHLORIDE 109 MMOL/L (98-107); CREATININE 3.4 MG/DL (0.55-1.30); POTASSIUM 4.8 MMOL/L (3.5-5.1); SODIUM 142 MMOL/L (136-145)
[2020-02-20] MEDS: Insulin Human Regular 100units/ml 3ml IV PRN ×3 (21:02→22:58)
[2020-02-20] MEDS: Insulin Rate Change 1 Each MISC PRN ×2 (22:01→23:02)
[2020-02-21] VITALS (25 sets, daily range): BP systolic 94–123; BP diastolic 35–56
[2020-02-21] MEDS: Insulin Human Regular 100units/ml 3ml IV PRN ×3 (00:11→01:51)
[2020-02-21] MEDS: Insulin Rate Change 1 Each MISC PRN ×3 (00:12→02:02)
[2020-02-21 01:28] LABS: ANION GAP 12 mmol/L (5-15); BLOOD UREA NITROGEN 85 mg/dL (7-18); CALCIUM 7.7 MG/DL (8.5-10.1); CARBON DIOXIDE 20 MMOL/L (21-32); CHLORIDE 111 MMOL/L (98-107); CREATININE 3.5 MG/DL (0.55-1.30); POTASSIUM 5.4 MMOL/L (3.5-5.1); SODIUM 142 MMOL/L (136-145)
[2020-02-21 06:14] LABS: CREATINE KINASE 44 U/L (26-308)
[2020-02-21] MEDS ORDERED: NovoLOG Insulin Flexpen SUBQ SCH ×2 (06:30)
--- NOTE | 2020-02-21 08:02 | Critical Care Progress Note ---
Assessment/Plan Assessment/Plan Impression: COVID 19 Pneumonia i Respiratory failure with Hypoxia Urinary tract infection Acute on chronic renal failure Diabetes Hyperlipidemia Previous [employer] shunt elevated D dimer anemia leukocytosis metabolic acidosis PLAN care noted IV antibiotics respiratory care noted meds supportive care suction as able DVT prophylaxis monitor renal function oxygen therapy prognosis guarded medications/laboratory data/nursing notes/ICU care reviewed in detail note reviewed and edited care discussed with RN and RT ICU time spent >40 minutes Critical Care - Subjective Interval Events: care noted on oxygen on isolation findings discussed ROS Limited/Unobtainable: Yes Condition: critical EKG Rhythm: Sinus Rhythm I&O: Intake and Output 02/20/20 02/21/20 19:00 07:00 Intake Total 645.0 ml 52.5 ml Output Total 395 ml 240 ml Balance 250.0 ml -187.5 ml Intake IV Total 645.0 ml 52.5 ml Output Urine Total 395 ml 240 ml # Bowel Movements 2 1 Critical Care - Objective Last 24 Hour Vital Signs Date Time Temp Pulse Resp B/P (MAP) Pulse Ox O2 Delivery O2 Flow Rate FiO2 02/21/20 07:30 94 37 117/49 (71) 91 02/21/20 07:00 93 37 109/47 (67) 91 02/21/20 06:00 91 39 110/45 (66) 90 02/21/20 05:00 91 35 109/43 (65) 89 02/21/20 04:00 Nasal Cannula 55.0 Nasal Cannula 55.0 02/21/20 04:00 91 35 100/45 (63) 94 02/21/20 04:00 55.0 100 02/21/20 04:00 91 02/21/20 03:00 92 34 104/50 (68) 96 02/21/20 02:56 95 High Flow 55.0 100 02/21/20 02:00 95 35 108/44 (65) 95 02/21/20 01:00 95 33 100/43 (62) 93 02/21/20 00:00 Nasal Cannula 55.0 Nasal Cannula 55.0 02/21/20 00:00 95 33 99/46 (63) 93 02/20/20 23:00 98 35 107/45 (65) 94 02/20/20 22:57 93 High Flow 55.0 100 02/20/20 22:00 98 36 111/48 (69) 90 02/20/20 21:00 94 36 109/44 (65) 89 02/20/20 20:00 96 02/20/20 20:00 55.0 100 02/20/20 20:00 96 33 103/50 (67) 93 02/20/20 19:00 97 37 108/52 (70) 93 02/20/20 18:42 92 High Flow 55.0 100 02/20/20 18:00 96 37 114/53 (73) 90 02/20/20 17:00 98.9 98 38 124/57 (79) 90 02/20/20 16:00 55.0 100 02/20/20 16:00 Nasal Cannula 55.0 Nasal Cannula 55.0 02/20/20 16:00 96 02/20/20 16:00 96 37 117/58 (77) 90 02/20/20 15:00 97 39 122/56 (78) 90 02/20/20 14:40 89 High Flow 55.0 100 02/20/20 14:00 96 39 109/51 (70) 90 02/20/20 13:00 97 29 112/52 (72) 90 02/20/20 12:00 99 02/20/20 12:00 99.0 98 38 127/58 (81) 86 02/20/20 12:00 Nasal Cannula 55.0 Nasal Cannula 55.0 02/20/20 12:00 55.0 100 02/20/20 11:00 97 38 119/68 (85) 88 02/20/20 10:36 89 High Flow 55.0 100 02/20/20 10:00 99 41 128/56 (80) 90 02/20/20 09:00 95 38 110/52 (71) 90 02/20/20 08:37 100 122/53 02/20/20 08:00 98.9 95 36 108/50 (69) 92 02/20/20 08:00 55.0 100 02/20/20 08:00 Nasal Cannula 55.0 Nasal Cannula 55.0 02/20/20 08:00 96 Labs: Laboratory Tests 02/20/20 08:16: Arterial Blood pH 7.337L, Arterial Blood Partial Pressure CO2 29.0L, Arterial Blood Partial Pressure O2 54.1L, Arterial Blood HCO3 15.2*L, Arterial Blood Oxygen Saturation 82.9*L, Arterial Blood Base Excess -9.6*L, Nba Test Positive 02/20/20 10:12: Arterial Blood pH 7.328L, Arterial Blood Partial Pressure CO2 29.7L, Arterial Blood Partial Pressure O2 51.2L, Arterial Blood HCO3 15.2*L, Arterial Blood Oxygen Saturation 83.0*L, Arterial Blood Base Excess -9.6*L, Nba Test Positive 02/20/20 19:00: Sodium Level 142, Potassium Level 4.8, Chloride Level 109H, Carbon Dioxide Level 17L, Anion Gap 16H, Blood Urea Nitrogen 85H, Creatinine 3.4H, Estimat Glomerular Filtration Rate 17.7, Glucose Level 396H, Hemoglobin A1c 9.4H, Calcium Level 7.8L 02/21/20 01:00: Sodium Level 142, Potassium Level 5.4H, Chloride Level 111H, Carbon Dioxide Level 20L, Anion Gap 12, Blood Urea Nitrogen 85H, Creatinine 3.5H, Estimat Glomerular Filtration Rate 17.1, Glucose Level 235#H, Calcium Level 7.7L 02/21/20 04:30: Sodium Level [Pending], Potassium Level [Pending], Chloride Level [Pending], Carbon Dioxide Level [Pending], Blood Urea Nitrogen [Pending], Creatinine [ Pending], Estimat Glomerular Filtration Rate [Pending], Glucose Level [Pending] , Uric Acid 10.2H, Calcium Level [Pending], Total Creatine Kinase 44 Objective: deferred due to COVID Micro: Microbiology Date/Time Source Procedure Growth Status 02/19/20 09:00 Body Fluid Gram Stain - Final Resulted 02/19/20 09:00 Body Fluid Body Fluid Culture - Preliminary NO GROWTH AFTER 24 HOURS Resulted Accucheck: 261 Alfred Chavez MD Feb 21, 2020 08:02
[2020-02-21] MEDS: Pantoprazole Inj IVP SCH ×2 (08:47→21:33)
[2020-02-21] MEDS: Piperacillin/Tazobactam 3.375 GM in NS 110 ML IVPB SCH (08:47)
[2020-02-21] MEDS: Solu-MEDROL 125mg Inj IVP SCH ×2 (08:47→21:34)
[2020-02-21] MEDS: Enoxaparin 30mg Inj SUBQ SCH (08:48)
[2020-02-21 08:54] LABS: ANION GAP 16 mmol/L (5-15); BLOOD UREA NITROGEN 88 mg/dL (7-18); CALCIUM 7.8 MG/DL (8.5-10.1); CARBON DIOXIDE 18 MMOL/L (21-32); CHLORIDE 110 MMOL/L (98-107); CREATININE 3.6 MG/DL (0.55-1.30); POTASSIUM 5.9 MMOL/L (3.5-5.1); SODIUM 143 MMOL/L (136-145)
[2020-02-21] MEDS: Tamsulosin 0.4mg cap ORAL SCH (09:00)
[2020-02-21] MEDS: Aspirin Baby 81mg ORAL SCH (09:00)
[2020-02-21] MEDS: Carvedilol 6.25mg Tab ORAL SCH ×2 (09:00→21:00)
[2020-02-21] MEDS: levETIRAcetam 500mg/NS100ml 100 ML IVPB SCH ×2 (10:37→23:48)
--- NOTE | 2020-02-21 10:44 | Infectious Diseases Prog Note ---
Assessment/Plan Assessment/Plan antibiotics : zosyn A 1. COVID 19 pneumonia on 55 liters O2, saturation 88 percent 2. diabetes mellitus 3. klebsiella sepsis secondary to UTI 4. klebsiella UTI 5. renal failure P 1. s/p ivermectin 9.20 2. continue solumedrol 3. start and continue ceftriaxone 5 more days 4. d/c zosyn 5. will follow up cultures Subjective ROS Limited/Unobtainable: Yes Allergies: Coded Allergies: IODINE (Verified Allergy, Unknown, 02/17/20) Uncoded Allergies: SHELLFISH (Allergy, Unknown, 02/17/20) Objective Last 24 Hour Vital Signs Date Time Temp Pulse Resp B/P (MAP) Pulse Ox O2 Delivery O2 Flow Rate FiO2 02/21/20 10:00 96 38 118/52 (74) 92 02/21/20 09:00 98 38 119/56 (77) 91 02/21/20 09:00 98 123/55 02/21/20 08:00 98.9 98 38 123/55 (77) 89 02/21/20 08:00 Non-Rebreather Non-Rebreather 02/21/20 07:55 95 02/21/20 07:30 94 37 117/49 (71) 91 02/21/20 07:00 90 High Flow 55.0 100 02/21/20 07:00 93 37 109/47 (67) 91 02/21/20 06:00 91 39 110/45 (66) 90 02/21/20 05:00 91 35 109/43 (65) 89 02/21/20 04:00 Nasal Cannula 55.0 Nasal Cannula 55.0 02/21/20 04:00 91 35 100/45 (63) 94 02/21/20 04:00 55.0 100 02/21/20 04:00 91 02/21/20 03:00 92 34 104/50 (68) 96 02/21/20 02:56 95 High Flow 55.0 100 02/21/20 02:00 95 35 108/44 (65) 95 02/21/20 01:00 95 33 100/43 (62) 93 02/21/20 00:00 Nasal Cannula 55.0 Nasal Cannula 55.0 02/21/20 00:00 95 33 99/46 (63) 93 02/20/20 23:00 98 35 107/45 (65) 94 02/20/20 22:57 93 High Flow 55.0 100 02/20/20 22:00 98 36 111/48 (69) 90 02/20/20 21:00 94 36 109/44 (65) 89 02/20/20 20:00 96 02/20/20 20:00 55.0 100 02/20/20 20:00 96 33 103/50 (67) 93 02/20/20 19:00 97 37 108/52 (70) 93 02/20/20 18:42 92 High Flow 55.0 100 02/20/20 18:00 96 37 114/53 (73) 90 02/20/20 17:00 98.9 98 38 124/57 (79) 90 02/20/20 16:00 55.0 100 02/20/20 16:00 Nasal Cannula 55.0 Nasal Cannula 55.0 02/20/20 16:00 96 02/20/20 16:00 96 37 117/58 (77) 90 02/20/20 15:00 97 39 122/56 (78) 90 02/20/20 14:40 89 High Flow 55.0 100 02/20/20 14:00 96 39 109/51 (70) 90 02/20/20 13:00 97 29 112/52 (72) 90 02/20/20 12:00 99 02/20/20 12:00 99.0 98 38 127/58 (81) 86 02/20/20 12:00 Nasal Cannula 55.0 Nasal Cannula 55.0 02/20/20 12:00 55.0 100 02/20/20 11:00 97 38 119/68 (85) 88 Height (Feet): 5 Height (Inches): 11.00 Weight (Pounds): 175 Microbiology Date/Time Source Procedure Growth Status 02/19/20 09:00 Body Fluid Gram Stain - Final Resulted 02/19/20 09:00 Body Fluid Body Fluid Culture - Preliminary NO GROWTH AFTER 48 HOURS Resulted Laboratory Tests Test 02/20/20 19:00 02/21/20 01:00 02/21/20 04:30 Sodium Level 142 MMOL/L (136-145) 142 MMOL/L (136-145) 143 MMOL/L (136-145) Potassium Level 4.8 MMOL/L (3.5-5.1) 5.4 MMOL/L (3.5-5.1) H 5.9 MMOL/L (3.5-5.1) H Chloride Level 109 MMOL/L (98-107) H 111 MMOL/L (98-107) H 110 MMOL/L (98-107) H Carbon Dioxide Level 17 MMOL/L (21-32) L 20 MMOL/L (21-32) L 18 MMOL/L (21-32) L Anion Gap 16 mmol/L (5-15) H 12 mmol/L (5-15) 16 mmol/L (5-15) H Blood Urea Nitrogen 85 mg/dL (7-18) H 85 mg/dL (7-18) H 88 mg/dL (7-18) H Creatinine 3.4 MG/DL (0.55-1.30) H 3.5 MG/DL (0.55-1.30) H 3.6 MG/DL (0.55-1.30) H Estimat Glomerular Filtration Rate 17.7 mL/min (>60) 17.1 mL/min (>60) 16.6 mL/min (>60) Glucose Level 396 MG/DL (74-106) H 235 MG/DL (74-106) #H 223 MG/DL (74-106) H Hemoglobin A1c 9.4 % (4.3-6.0) H Calcium Level 7.8 MG/DL (8.5-10.1) L 7.7 MG/DL (8.5-10.1) L 7.8 MG/DL (8.5-10.1) L Uric Acid 10.2 MG/DL (2.6-7.2) H Total Creatine Kinase 44 U/L (26-308) Current Medications Medications (Trade) Dose Ordered Sig/Carlos A Route PRN Reason Start Time Stop Time Status Last Admin Dose Admin Acetaminophen (Tylenol) 650 mg Q6H PRN ORAL For Headache 02/18/20 15:36 03/19/20 15:35 Acetaminophen (Tylenol) 650 mg Q6HR PRN RECTAL Temp >100.5 02/20/20 15:30 03/21/20 15:29 Albuterol Sulfate (Proventil MDI) 2 puff Q6H PRN INH Shortness of Breath 02/18/20 15:37 05/18/20 15:36 Aspirin (ASA) 81 mg DAILY ORAL 02/19/20 09:00 04/03/20 08:59 Atorvastatin Calcium (Lipitor) 40 mg BEDTIME ORAL 02/18/20 21:00 05/18/20 20:59 Carvedilol (Coreg) 6.25 mg EVERY 12 HOURS ORAL 02/18/20 21:00 03/19/20 08:59 Dextrose (Dextrose 50%) 25 ml Q30M PRN IV Hypoglycemia 02/21/20 03:30 05/21/20 03:29 Dextrose (Dextrose 50%) 50 ml Q30M PRN IV Hypoglycemia 02/21/20 03:30 05/21/20 03:29 Enoxaparin Sodium (Lovenox) 30 mg DAILY SUBQ 02/19/20 09:00 05/18/20 08:59 02/21/20 08:48 Ferrous Sulfate (Feosol) 325 mg DAILY ORAL 02/19/20 09:00 05/18/20 08:59 Finasteride (Proscar) 5 mg DAILY ORAL 02/19/20 09:00 05/18/20 08:59 Insulin Aspart (NovoLOG) EVERY 6 HOURS SUBQ 02/21/20 12:00 05/21/20 06:29 Levetiracetam 100 ml @ 400 mls/hr Q12H IVPB 02/18/20 23:30 05/18/20 11:29 02/21/20 10:37 Methylprednisolone Sodium Succinate (Solu-MEDROL) 60 mg Q12HR IVP 02/20/20 21:00 05/20/20 20:59 02/21/20 08:47 Ondansetron HCl (Zofran) 4 mg Q6H PRN IVP Nausea & Vomiting 02/18/20 21:15 03/19/20 03:14 Pantoprazole (Protonix) 40 mg EVERY 12 HOURS IVP 02/18/20 21:00 03/19/20 20:59 02/21/20 08:47 Piperacillin Sod/ Tazobactam Sod 3.375 gm/Sodium Chloride 110 ml @ 27.5 mls/hr EVERY 12 HOURS IVPB 02/19/20 21:00 02/24/20 20:59 02/21/20 08:47 Sodium Bicarbonate 100 ml/Dextrose 1,100 ml @ 35 mls/hr Q24H IV 02/20/20 17:00 03/21/20 16:59 02/20/20 17:29 Tamsulosin HCl (Flomax) 0.4 mg DAILY ORAL 02/19/20 09:00 03/19/20 08:59 Celena Fernando MD Feb 21, 2020 10:44
[2020-02-21] MEDS: cefTRIAXone 1 GM in D5W 55 ML IVPB SCH (12:50)
--- NOTE | 2020-02-21 12:50 | Surgery Progress Note ---
Surgery Progress Note Subjective Additional Comments ill appearing labs noted on support Objective Last 24 Hour Vital Signs Date Time Temp Pulse Resp B/P (MAP) Pulse Ox O2 Delivery O2 Flow Rate FiO2 02/21/20 12:11 98 02/21/20 12:00 98.9 98 39 121/51 (74) 88 02/21/20 12:00 Non-Rebreather Non-Rebreather 02/21/20 11:19 88 High Flow 55.0 100 02/21/20 11:00 96 39 120/51 (74) 88 02/21/20 10:00 96 38 118/52 (74) 92 02/21/20 09:00 98 38 119/56 (77) 91 02/21/20 09:00 98 123/55 02/21/20 08:00 98.9 98 38 123/55 (77) 89 02/21/20 08:00 Non-Rebreather Non-Rebreather 02/21/20 07:55 95 02/21/20 07:30 94 37 117/49 (71) 91 02/21/20 07:00 90 High Flow 55.0 100 02/21/20 07:00 93 37 109/47 (67) 91 02/21/20 06:00 91 39 110/45 (66) 90 02/21/20 05:00 91 35 109/43 (65) 89 02/21/20 04:00 Nasal Cannula 55.0 Nasal Cannula 55.0 02/21/20 04:00 91 35 100/45 (63) 94 02/21/20 04:00 55.0 100 02/21/20 04:00 91 02/21/20 03:00 92 34 104/50 (68) 96 02/21/20 02:56 95 High Flow 55.0 100 02/21/20 02:00 95 35 108/44 (65) 95 02/21/20 01:00 95 33 100/43 (62) 93 02/21/20 00:00 Nasal Cannula 55.0 Nasal Cannula 55.0 02/21/20 00:00 95 33 99/46 (63) 93 02/20/20 23:00 98 35 107/45 (65) 94 02/20/20 22:57 93 High Flow 55.0 100 02/20/20 22:00 98 36 111/48 (69) 90 02/20/20 21:00 94 36 109/44 (65) 89 02/20/20 20:00 96 02/20/20 20:00 55.0 100 02/20/20 20:00 96 33 103/50 (67) 93 02/20/20 19:00 97 37 108/52 (70) 93 02/20/20 18:42 92 High Flow 55.0 100 02/20/20 18:00 96 37 114/53 (73) 90 02/20/20 17:00 98.9 98 38 124/57 (79) 90 02/20/20 16:00 55.0 100 02/20/20 16:00 Nasal Cannula 55.0 Nasal Cannula 55.0 02/20/20 16:00 96 02/20/20 16:00 96 37 117/58 (77) 90 02/20/20 15:00 97 39 122/56 (78) 90 02/20/20 14:40 89 High Flow 55.0 100 02/20/20 14:00 96 39 109/51 (70) 90 02/20/20 13:00 97 29 112/52 (72) 90 I&O Intake and Output 02/20/20 02/21/20 19:00 07:00 Intake Total 645.0 ml 458.08 ml Output Total 395 ml 240 ml Balance 250.0 ml 218.08 ml Intake IV Total 645.0 ml 458.08 ml Output Urine Total 395 ml 240 ml # Bowel Movements 2 1 Cardiovascular: RSR Respiratory: decreased breath sounds Abdomen: soft, non-tender, present bowel sounds Extremities: no tenderness, no cyanosis Laboratory Tests Test 02/20/20 19:00 02/21/20 01:00 02/21/20 04:30 Sodium Level 142 MMOL/L (136-145) 142 MMOL/L (136-145) 143 MMOL/L (136-145) Potassium Level 4.8 MMOL/L (3.5-5.1) 5.4 MMOL/L (3.5-5.1) H 5.9 MMOL/L (3.5-5.1) H Chloride Level 109 MMOL/L (98-107) H 111 MMOL/L (98-107) H 110 MMOL/L (98-107) H Carbon Dioxide Level 17 MMOL/L (21-32) L 20 MMOL/L (21-32) L 18 MMOL/L (21-32) L Anion Gap 16 mmol/L (5-15) H 12 mmol/L (5-15) 16 mmol/L (5-15) H Blood Urea Nitrogen 85 mg/dL (7-18) H 85 mg/dL (7-18) H 88 mg/dL (7-18) H Creatinine 3.4 MG/DL (0.55-1.30) H 3.5 MG/DL (0.55-1.30) H 3.6 MG/DL (0.55-1.30) H Estimat Glomerular Filtration Rate 17.7 mL/min (>60) 17.1 mL/min (>60) 16.6 mL/min (>60) Glucose Level 396 MG/DL (74-106) H 235 MG/DL (74-106) #H 223 MG/DL (74-106) H Hemoglobin A1c 9.4 % (4.3-6.0) H Calcium Level 7.8 MG/DL (8.5-10.1) L 7.7 MG/DL (8.5-10.1) L 7.8 MG/DL (8.5-10.1) L Uric Acid 10.2 MG/DL (2.6-7.2) H Total Creatine Kinase 44 U/L (26-308) Plan Problems: (1) Sacral decubitus ulcer Assessment & Plan: Pt presented on admission with multiple Pressure injuries, MASD. Ecchymotic areas R ventral forearm. Unstageable Sacral Pressure injury(L)11cm x (W)9.5cm. Base of wound is 25% kinza, 75%scattered areas of mixed soft necrosis and slough. Borders are irregular and macerated. Periwound is indurated with additional erythema and shearing. Partial thickness Pressure injury upper R Buttocks(L)2.2cm x (W)1.5cm. Base of wound is moist and viable. Edges flat and adherent to base of wound. MASD Suprapubis, penis ,scrotum ,Elvia-anal,and medial/ posterior upper aspects of both thighs.Affected areas are erythematous with scattered satellite lesions. Full thickness ulcer distal /medial L lower ext in close proximity medial malleolus(L)1.8cm x (W)1.6cm. Base of wound is 90% dry brown eschar cap ,10% kinza . Edges adherent to base of wound. No elevation in skin temp, erythema or induration periwound. R Heel is boggy with non-Blanchable erythema. L Heel is boggy but blanchable. R 1st metatarsal nailbed and matrix are black.NO erythema or changes in skin temp or colour noted to R 1st metatarsal. Tx.Plan: Cleanse Sacral wound with Saline. Apply TheraHoney. Apply Moisture Barrier Periwound. Cover with Optifoam drsg Daily and prn. Cleanse wound distal/ medial L lower ext. Apply Cavilon Skin Barrier periwound. Cover with Optifoam drsg. Change every 3 days and prn. Apply Cavilon Skin Barrier to bilat heels and Malleoli. Cover each site with Optifoam drsg. Change every 7 days and prn. Reposition at least every 2hours or as tolerated. Off-load heels with pillow. APM/SHAREE Mattress overlay. (2) Malnutrition (3) Leukocytosis Assessment & Plan: COVID + declining respiratory declining family has decided for DNI/dNR no line no intubation prognosis guarded (4) Hypoxia (5) UTI (urinary tract infection) (6) Pneumonia involving left lung (7) COVID-19 Assessment & Plan: ++ (8) Hyperglycemia (9) Renal failure Jorge Howard Feb 21, 2020 12:50
[2020-02-21] MEDS: NovoLOG Insulin Flexpen SUBQ SCH ×2 (13:49→17:37)
[2020-02-21] MEDS ORDERED: NS 275ml ONE ×2 (15:54→17:50)
[2020-02-21] MEDS ORDERED: D5 1/2NS 1000ml IV ONE (15:54)
[2020-02-21] MEDS ORDERED: Tubing IV Secondary IV ONE ×2 (15:54→17:50)
[2020-02-21] MEDS ORDERED: NS 500ML ONE (15:54)
[2020-02-21] MEDS: Sodium Bicarbonate 100 ML in D5W 1000ml 1,000 ML IV SCH (17:18)
[2020-02-21] MEDS: Atorvastatin 80mg tab ORAL SCH (21:00)
--- NOTE | 2020-02-21 21:20 | Nephrology Progress Note ---
Assessment/Plan Problem List: (1) Acute hypoxemic respiratory failure due to COVID-19 (2) Severe sepsis (3) Metabolic acidosis (4) ALMAZ (acute kidney injury) (5) COVID-19 (6) Pneumonia involving left lung (7) UTI (urinary tract infection) (8) Hypoxia Plan bicarb drip, avoid excess fluids, SS inulin additional lispro,prerenal indices now dnr Subjective ROS Limited/Unobtainable: Yes Objective Objective Last 24 Hour Vital Signs Date Time Temp Pulse Resp B/P (MAP) Pulse Ox O2 Delivery O2 Flow Rate FiO2 02/21/20 20:00 100 02/21/20 20:00 Nasal Cannula 55.0 Nasal Cannula 55.0 02/21/20 20:00 100 37 102/40 (60) 91 02/21/20 19:55 94 High Flow 55.0 100 02/21/20 19:00 103 37 100/44 (62) 87 02/21/20 18:00 104 37 113/42 (65) 83 02/21/20 17:00 95 36 107/42 (63) 90 02/21/20 16:00 Non-Rebreather Non-Rebreather 02/21/20 16:00 98.7 99 43 112/44 (66) 86 02/21/20 15:42 95 02/21/20 15:24 88 High Flow 55.0 100 02/21/20 15:00 95 40 108/39 (62) 90 02/21/20 14:00 100 40 120/48 (72) 90 02/21/20 13:00 97 39 118/50 (72) 88 02/21/20 12:11 98 02/21/20 12:00 98.9 98 39 121/51 (74) 88 02/21/20 12:00 Non-Rebreather Non-Rebreather 02/21/20 11:19 88 High Flow 55.0 100 02/21/20 11:00 96 39 120/51 (74) 88 02/21/20 10:00 96 38 118/52 (74) 92 02/21/20 09:00 98 38 119/56 (77) 91 02/21/20 09:00 98 123/55 02/21/20 08:00 98.9 98 38 123/55 (77) 89 02/21/20 08:00 Non-Rebreather Non-Rebreather 02/21/20 07:55 95 02/21/20 07:30 94 37 117/49 (71) 91 02/21/20 07:00 90 High Flow 55.0 100 02/21/20 07:00 93 37 109/47 (67) 91 02/21/20 06:00 91 39 110/45 (66) 90 02/21/20 05:00 91 35 109/43 (65) 89 02/21/20 04:00 Nasal Cannula 55.0 Nasal Cannula 55.0 02/21/20 04:00 91 35 100/45 (63) 94 02/21/20 04:00 55.0 100 02/21/20 04:00 91 02/21/20 03:00 92 34 104/50 (68) 96 02/21/20 02:56 95 High Flow 55.0 100 02/21/20 02:00 95 35 108/44 (65) 95 02/21/20 01:00 95 33 100/43 (62) 93 02/21/20 00:00 Nasal Cannula 55.0 Nasal Cannula 55.0 02/21/20 00:00 95 33 99/46 (63) 93 02/20/20 23:00 98 35 107/45 (65) 94 02/20/20 22:57 93 High Flow 55.0 100 02/20/20 22:00 98 36 111/48 (69) 90 Intake and Output 02/20/20 02/21/20 19:00 07:00 Intake Total 645.0 ml 458.08 ml Output Total 395 ml 240 ml Balance 250.0 ml 218.08 ml Intake IV Total 645.0 ml 458.08 ml Output Urine Total 395 ml 240 ml # Bowel Movements 2 1 Laboratory Tests 02/21/20 01:00: Sodium Level 142, Potassium Level 5.4H, Chloride Level 111H, Carbon Dioxide Level 20L, Anion Gap 12, Blood Urea Nitrogen 85H, Creatinine 3.5H, Estimat Glomerular Filtration Rate 17.1, Glucose Level 235#H, Calcium Level 7.7L 02/21/20 04:30: Sodium Level 143, Potassium Level 5.9H, Chloride Level 110H, Carbon Dioxide Level 18L, Anion Gap 16H, Blood Urea Nitrogen 88H, Creatinine 3.6H, Estimat Glomerular Filtration Rate 16.6, Glucose Level 223H, Calcium Level 7.8L, Uric Acid 10.2H, Total Creatine Kinase 44 02/21/20 13:00: Urine Random Sodium 33, Urine Creatinine 92.2 02/21/20 18:47: Arterial Blood pH 7.214*L, Arterial Blood Partial Pressure CO2 41.3, Arterial Blood Partial Pressure O2 56.9L, Arterial Blood HCO3 16.3*L, Arterial Blood Oxygen Saturation 83.9*L, Arterial Blood Base Excess -10.7*L, Nba Test Positive Height (Feet): 5 Height (Inches): 11.00 Weight (Pounds): 175 General Appearance: lethargic, confused, severe distress Cardiovascular: regular rhythm Respiratory/Chest: accessory muscle use, rhonchi - bilaterally Abdomen: non tender, soft Extremities: trace edema Neurologic: motor weakness, disoriented Jose F Patel MD Feb 21, 2020 21:20
[2020-02-21] MEDS ORDERED: Sodium Bicarbonate 50ml Carp IVP SCH (22:00)
[2020-02-22] VITALS (26 sets, daily range): BP systolic 67–124; BP diastolic 38–58
[2020-02-22] MEDS: NovoLOG Insulin Flexpen SUBQ SCH ×10 (00:44→23:26)
--- NOTE | 2020-02-22 01:39 | Cardiology Report ---
APPROVED REPORT EKG Measurement Heart [id number] SD 140P39 [id number] <Conclusion> Normal sinus rhythm Nonspecific T wave abnormality Abnormal ECG
[2020-02-22 05:45] LABS: ANION GAP 13 mmol/L (5-15); BLOOD UREA NITROGEN 113 mg/dL (7-18); CALCIUM 7.2 MG/DL (8.5-10.1); CARBON DIOXIDE 21 MMOL/L (21-32); CHLORIDE 111 MMOL/L (98-107); POTASSIUM 5.6 MMOL/L (3.5-5.1); SODIUM 145 MMOL/L (136-145)
[2020-02-22] MEDS: Tamsulosin 0.4mg cap ORAL SCH ×2 (09:00→09:29)
[2020-02-22] MEDS: Carvedilol 6.25mg Tab ORAL SCH ×2 (09:00→19:37)
[2020-02-22] MEDS: Aspirin Baby 81mg ORAL SCH ×2 (09:00→09:28)
[2020-02-22] MEDS: Solu-MEDROL 125mg Inj IVP SCH ×2 (09:27→21:17)
[2020-02-22] MEDS: Pantoprazole Inj IVP SCH ×2 (09:27→21:17)
[2020-02-22] MEDS: Enoxaparin 30mg Inj SUBQ SCH (09:32)
--- NOTE | 2020-02-22 11:10 | Infectious Diseases Prog Note ---
Assessment/Plan Assessment/Plan antibiotics : ceftriaxone A 1. COVID 19 pneumonia on 55 liters O2, saturation 92 percent s/p ivermectin 9.5.20 2. diabetes mellitus 3. klebsiella sepsis secondary to UTI 4. klebsiella UTI 5. renal failure worse P 1. continue solumedrol 2. continue ceftriaxone 4 more days 3. will follow up cultures Subjective ROS Limited/Unobtainable: Yes Allergies: Coded Allergies: IODINE (Verified Allergy, Unknown, 02/17/20) Uncoded Allergies: SHELLFISH (Allergy, Unknown, 02/17/20) Objective Last 24 Hour Vital Signs Date Time Temp Pulse Resp B/P (MAP) Pulse Ox O2 Delivery O2 Flow Rate FiO2 02/22/20 10:00 93 30 104/42 (62) 92 02/22/20 09:00 89 32 100/48 (65) 91 02/22/20 08:00 93 104/52 (69) 93 02/22/20 08:00 90 02/22/20 08:00 98.0 02/22/20 08:00 Nasal Cannula 55.0 Nasal Cannula 55.0 02/22/20 07:00 92 High Flow 55.0 100 02/22/20 07:00 107 98/45 (62) 90 02/22/20 06:00 95 100/45 (63) 95 02/22/20 05:00 96 103/46 (65) 95 02/22/20 04:00 116 02/22/20 04:00 Nasal Cannula 55.0 Nasal Cannula 55.0 02/22/20 04:00 116 103/40 (61) 85 02/22/20 03:16 90 High Flow 55.0 100 02/22/20 03:00 97 36 100/41 (60) 94 02/22/20 02:00 109 38 108/48 (68) 91 02/22/20 01:00 100 37 107/41 (63) 88 02/22/20 00:00 Nasal Cannula 55.0 Nasal Cannula 55.0 02/22/20 00:00 98.5 96 36 102/40 (60) 91 02/21/20 23:24 90 High Flow 55.0 100 02/21/20 23:00 95 36 105/39 (61) 89 02/21/20 22:00 92 36 94/35 (54) 90 02/21/20 21:00 97 38 105/37 (59) 84 02/21/20 20:00 100 02/21/20 20:00 Nasal Cannula 55.0 Nasal Cannula 55.0 02/21/20 20:00 100 37 102/40 (60) 91 02/21/20 19:55 94 High Flow 55.0 100 02/21/20 19:00 103 37 100/44 (62) 87 02/21/20 18:00 104 37 113/42 (65) 83 02/21/20 17:00 95 36 107/42 (63) 90 02/21/20 16:00 Non-Rebreather Non-Rebreather 02/21/20 16:00 98.7 99 43 112/44 (66) 86 02/21/20 15:42 95 02/21/20 15:24 88 High Flow 55.0 100 02/21/20 15:00 95 40 108/39 (62) 90 02/21/20 14:00 100 40 120/48 (72) 90 02/21/20 13:00 97 39 118/50 (72) 88 02/21/20 12:11 98 02/21/20 12:00 98.9 98 39 121/51 (74) 88 02/21/20 12:00 Non-Rebreather Non-Rebreather 02/21/20 11:19 88 High Flow 55.0 100 Height (Feet): 5 Height (Inches): 11.00 Weight (Pounds): 175 Laboratory Tests Test 02/21/20 13:00 02/21/20 13:18 02/21/20 17:24 02/21/20 18:47 Urine Random Sodium 33 mmol/L (20-110) Urine Creatinine 92.2 MG/DL (30.0-125.0) POC Whole Blood Glucose Pending Pending Arterial Blood pH 7.214 (7.350-7.450) Arterial Blood Partial Pressure CO2 41.3 mmHg (35.0-45.0) Arterial Blood Partial Pressure O2 56.9 mmHg (75.0-100.0) L Arterial Blood HCO3 16.3 mmol/L (22.0-26.0) *L Arterial Blood Oxygen Saturation 83.9 % (95-100) *L Arterial Blood Base Excess -10.7 (-2-2) *L Nba Test Positive Test 02/22/20 04:20 Sodium Level 145 MMOL/L (136-145) Potassium Level 5.6 MMOL/L (3.5-5.1) H Chloride Level 111 MMOL/L (98-107) H Carbon Dioxide Level 21 MMOL/L (21-32) Anion Gap 13 mmol/L (5-15) Blood Urea Nitrogen 113 mg/dL (7-18) H Creatinine 4.0 MG/DL (0.55-1.30) H Estimat Glomerular Filtration Rate 14.7 mL/min (>60) Glucose Level 337 MG/DL (74-106) #H Uric Acid 12.0 MG/DL (2.6-7.2) H Calcium Level 7.2 MG/DL (8.5-10.1) L Current Medications Medications (Trade) Dose Ordered Sig/Carlos A Route PRN Reason Start Time Stop Time Status Last Admin Dose Admin Acetaminophen (Tylenol) 650 mg Q6H PRN ORAL For Headache 02/18/20 15:36 03/19/20 15:35 Acetaminophen (Tylenol) 650 mg Q6HR PRN RECTAL Temp >100.5 02/20/20 15:30 03/21/20 15:29 Albuterol Sulfate (Proventil MDI) 2 puff Q6H PRN INH Shortness of Breath 02/18/20 15:37 05/18/20 15:36 Aspirin (ASA) 81 mg DAILY ORAL 02/19/20 09:00 04/03/20 08:59 02/22/20 09:28 Atorvastatin Calcium (Lipitor) 40 mg BEDTIME ORAL 02/18/20 21:00 05/18/20 20:59 Carvedilol (Coreg) 6.25 mg EVERY 12 HOURS ORAL 02/18/20 21:00 03/19/20 08:59 Ceftriaxone Sodium 1 gm/ Dextrose 55 ml @ 110 mls/hr Q24H IVPB 02/21/20 12:00 02/28/20 11:59 02/21/20 12:50 Dextrose (Dextrose 50%) 25 ml Q30M PRN IV Hypoglycemia 02/21/20 03:30 05/21/20 03:29 Dextrose (Dextrose 50%) 50 ml Q30M PRN IV Hypoglycemia 02/21/20 03:30 05/21/20 03:29 Enoxaparin Sodium (Lovenox) 30 mg DAILY SUBQ 02/19/20 09:00 05/18/20 08:59 02/22/20 09:32 Ferrous Sulfate (Feosol) 325 mg DAILY ORAL 02/19/20 09:00 05/18/20 08:59 02/22/20 09:30 Finasteride (Proscar) 5 mg DAILY ORAL 02/19/20 09:00 05/18/20 08:59 02/22/20 09:29 Insulin Aspart (NovoLOG) EVERY 6 HOURS SUBQ 02/21/20 12:00 05/21/20 06:29 02/22/20 06:16 Insulin Aspart (NovoLOG) 6 units Q6HR SUBQ 02/22/20 00:00 05/22/20 00:00 02/22/20 06:16 Levetiracetam 100 ml @ 400 mls/hr Q12H IVPB 02/18/20 23:30 05/18/20 11:29 02/21/20 23:48 Methylprednisolone Sodium Succinate (Solu-MEDROL) 60 mg Q12HR IVP 02/20/20 21:00 05/20/20 20:59 02/22/20 09:27 Ondansetron HCl (Zofran) 4 mg Q6H PRN IVP Nausea & Vomiting 02/18/20 21:15 03/19/20 03:14 Pantoprazole (Protonix) 40 mg EVERY 12 HOURS IVP 02/18/20 21:00 03/19/20 20:59 02/22/20 09:27 Sodium Chloride 1,000 ml @ 100 mls/hr Q10H IV 02/21/20 22:00 03/22/20 21:59 02/22/20 06:02 Tamsulosin HCl (Flomax) 0.4 mg DAILY ORAL 02/19/20 09:00 03/19/20 08:59 02/22/20 09:29 Celena Fernando MD Feb 22, 2020 11:10
[2020-02-22] MEDS: cefTRIAXone 1 GM in D5W 55 ML IVPB SCH (12:10)
[2020-02-22] MEDS: levETIRAcetam 500mg/NS100ml 100 ML IVPB SCH ×2 (12:11→23:23)
--- NOTE | 2020-02-22 15:32 | Surgery Progress Note ---
Surgery Progress Note Subjective Additional Comments ill appearing no n/v labs noted uric noted Objective Last 24 Hour Vital Signs Date Time Temp Pulse Resp B/P (MAP) Pulse Ox O2 Delivery O2 Flow Rate FiO2 02/22/20 15:00 120 23 67/38 (48) 80 02/22/20 14:00 127 27 124/48 (73) 76 02/22/20 13:22 88 29 124/48 (73) 93 02/22/20 13:00 88 29 124/48 (73) 93 02/22/20 12:43 96.8 93 34 114/45 (68) 88 02/22/20 12:00 Nasal Cannula 55.0 Nasal Cannula 55.0 02/22/20 12:00 89 02/22/20 12:00 96.8 93 34 114/46 (68) 88 02/22/20 11:25 92 High Flow 55.0 100 02/22/20 11:00 91 32 110/50 (70) 90 02/22/20 10:00 93 30 104/42 (62) 92 02/22/20 09:00 89 32 100/48 (65) 91 02/22/20 08:00 93 104/52 (69) 93 02/22/20 08:00 90 02/22/20 08:00 98.0 02/22/20 08:00 Nasal Cannula 55.0 Nasal Cannula 55.0 02/22/20 07:00 92 High Flow 55.0 100 02/22/20 07:00 107 98/45 (62) 90 02/22/20 06:00 95 100/45 (63) 95 02/22/20 05:00 96 103/46 (65) 95 02/22/20 04:00 116 02/22/20 04:00 Nasal Cannula 55.0 Nasal Cannula 55.0 02/22/20 04:00 116 103/40 (61) 85 02/22/20 03:16 90 High Flow 55.0 100 02/22/20 03:00 97 36 100/41 (60) 94 02/22/20 02:00 109 38 108/48 (68) 91 02/22/20 01:00 100 37 107/41 (63) 88 02/22/20 00:00 Nasal Cannula 55.0 Nasal Cannula 55.0 02/22/20 00:00 98.5 96 36 102/40 (60) 91 02/21/20 23:24 90 High Flow 55.0 100 02/21/20 23:00 95 36 105/39 (61) 89 02/21/20 22:00 92 36 94/35 (54) 90 02/21/20 21:00 97 38 105/37 (59) 84 02/21/20 20:00 100 02/21/20 20:00 Nasal Cannula 55.0 Nasal Cannula 55.0 02/21/20 20:00 100 37 102/40 (60) 91 02/21/20 19:55 94 High Flow 55.0 100 02/21/20 19:00 103 37 100/44 (62) 87 02/21/20 18:00 104 37 113/42 (65) 83 02/21/20 17:00 95 36 107/42 (63) 90 02/21/20 16:00 Non-Rebreather Non-Rebreather 02/21/20 16:00 98.7 99 43 112/44 (66) 86 02/21/20 15:42 95 I&O Intake and Output 02/21/20 02/22/20 19:00 07:00 Intake Total 564.5 ml 1008.3 ml Output Total 165 ml 120 ml Balance 399.5 ml 888.3 ml Intake IV Total 564.5 ml 1008.3 ml Output Urine Total 165 ml 120 ml # Bowel Movements 2 1 Dressing: other Wound: other Cardiovascular: RSR Respiratory: decreased breath sounds Abdomen: soft, non-tender, present bowel sounds Extremities: no tenderness, no cyanosis, other Laboratory Tests Test 02/21/20 17:24 02/21/20 18:47 02/22/20 04:20 POC Whole Blood Glucose Pending Arterial Blood pH 7.214 (7.350-7.450) Arterial Blood Partial Pressure CO2 41.3 mmHg (35.0-45.0) Arterial Blood Partial Pressure O2 56.9 mmHg (75.0-100.0) L Arterial Blood HCO3 16.3 mmol/L (22.0-26.0) *L Arterial Blood Oxygen Saturation 83.9 % (95-100) *L Arterial Blood Base Excess -10.7 (-2-2) *L Nba Test Positive Sodium Level 145 MMOL/L (136-145) Potassium Level 5.6 MMOL/L (3.5-5.1) H Chloride Level 111 MMOL/L (98-107) H Carbon Dioxide Level 21 MMOL/L (21-32) Anion Gap 13 mmol/L (5-15) Blood Urea Nitrogen 113 mg/dL (7-18) H Creatinine 4.0 MG/DL (0.55-1.30) H Estimat Glomerular Filtration Rate 14.7 mL/min (>60) Glucose Level 337 MG/DL (74-106) #H Uric Acid 12.0 MG/DL (2.6-7.2) H Calcium Level 7.2 MG/DL (8.5-10.1) L Plan Problems: (1) Sacral decubitus ulcer Assessment & Plan: Pt presented on admission with multiple Pressure injuries, MASD. Ecchymotic areas R ventral forearm. Unstageable Sacral Pressure injury(L)11cm x (W)9.5cm. Base of wound is 25% kinaz, 75%scattered areas of mixed soft necrosis and slough. Borders are irregular and macerated. Periwound is indurated with additional erythema and shearing. Partial thickness Pressure injury upper R Buttocks(L)2.2cm x (W)1.5cm. Base of wound is moist and viable. Edges flat and adherent to base of wound. MASD Suprapubis, penis ,scrotum ,Elvia-anal,and medial/ posterior upper aspects of both thighs.Affected areas are erythematous with scattered satellite lesions. Full thickness ulcer distal /medial L lower ext in close proximity medial malleolus(L)1.8cm x (W)1.6cm. Base of wound is 90% dry brown eschar cap ,10% kinza . Edges adherent to base of wound. No elevation in skin temp, erythema or induration periwound. R Heel is boggy with non-Blanchable erythema. L Heel is boggy but blanchable. R 1st metatarsal nailbed and matrix are black.NO erythema or changes in skin temp or colour noted to R 1st metatarsal. Tx.Plan: Cleanse Sacral wound with Saline. Apply TheraHoney. Apply Moisture Barrier Periwound. Cover with Optifoam drsg Daily and prn. Cleanse wound distal/ medial L lower ext. Apply Cavilon Skin Barrier periwound. Cover with Optifoam drsg. Change every 3 days and prn. Apply Cavilon Skin Barrier to bilat heels and Malleoli. Cover each site with Optifoam drsg. Change every 7 days and prn. Reposition at least every 2hours or as tolerated. Off-load heels with pillow. APM/SHAREE Mattress overlay. (2) Malnutrition (3) Leukocytosis Assessment & Plan: COVID + declining respiratory declining family has decided for DNI/dNR no line no intubation prognosis guarded (4) Hypoxia (5) UTI (urinary tract infection) (6) Pneumonia involving left lung (7) COVID-19 Assessment & Plan: ++ (8) Hyperglycemia (9) Renal failure Jorge Howard Feb 22, 2020 15:32
--- NOTE | 2020-02-22 15:34 | Nephrology Progress Note ---
Assessment/Plan Problem List: (1) Acute hypoxemic respiratory failure due to COVID-19 (2) Severe sepsis (3) Metabolic acidosis (4) ALMAZ (acute kidney injury) (5) COVID-19 (6) Pneumonia involving left lung (7) UTI (urinary tract infection) (8) Hypoxia Plan bicarb drip, increase fluids as hypotensive, SS inulin additional lispro, prerenal indices now dnr, grave prognosis Subjective ROS Limited/Unobtainable: Yes Objective Objective Last 24 Hour Vital Signs Date Time Temp Pulse Resp B/P (MAP) Pulse Ox O2 Delivery O2 Flow Rate FiO2 02/22/20 15:00 120 23 67/38 (48) 80 02/22/20 14:00 127 27 124/48 (73) 76 02/22/20 13:22 88 29 124/48 (73) 93 02/22/20 13:00 88 29 124/48 (73) 93 02/22/20 12:43 96.8 93 34 114/45 (68) 88 02/22/20 12:00 Nasal Cannula 55.0 Nasal Cannula 55.0 02/22/20 12:00 89 02/22/20 12:00 96.8 93 34 114/46 (68) 88 02/22/20 11:25 92 High Flow 55.0 100 02/22/20 11:00 91 32 110/50 (70) 90 02/22/20 10:00 93 30 104/42 (62) 92 02/22/20 09:00 89 32 100/48 (65) 91 02/22/20 08:00 93 104/52 (69) 93 02/22/20 08:00 90 02/22/20 08:00 98.0 02/22/20 08:00 Nasal Cannula 55.0 Nasal Cannula 55.0 02/22/20 07:00 92 High Flow 55.0 100 02/22/20 07:00 107 98/45 (62) 90 02/22/20 06:00 95 100/45 (63) 95 02/22/20 05:00 96 103/46 (65) 95 02/22/20 04:00 116 02/22/20 04:00 Nasal Cannula 55.0 Nasal Cannula 55.0 02/22/20 04:00 116 103/40 (61) 85 02/22/20 03:16 90 High Flow 55.0 100 02/22/20 03:00 97 36 100/41 (60) 94 02/22/20 02:00 109 38 108/48 (68) 91 02/22/20 01:00 100 37 107/41 (63) 88 02/22/20 00:00 Nasal Cannula 55.0 Nasal Cannula 55.0 02/22/20 00:00 98.5 96 36 102/40 (60) 91 02/21/20 23:24 90 High Flow 55.0 100 02/21/20 23:00 95 36 105/39 (61) 89 02/21/20 22:00 92 36 94/35 (54) 90 02/21/20 21:00 97 38 105/37 (59) 84 02/21/20 20:00 100 02/21/20 20:00 Nasal Cannula 55.0 Nasal Cannula 55.0 02/21/20 20:00 100 37 102/40 (60) 91 02/21/20 19:55 94 High Flow 55.0 100 02/21/20 19:00 103 37 100/44 (62) 87 02/21/20 18:00 104 37 113/42 (65) 83 02/21/20 17:00 95 36 107/42 (63) 90 02/21/20 16:00 Non-Rebreather Non-Rebreather 02/21/20 16:00 98.7 99 43 112/44 (66) 86 02/21/20 15:42 95 Intake and Output 02/21/20 02/22/20 19:00 07:00 Intake Total 564.5 ml 1008.3 ml Output Total 165 ml 120 ml Balance 399.5 ml 888.3 ml Intake IV Total 564.5 ml 1008.3 ml Output Urine Total 165 ml 120 ml # Bowel Movements 2 1 Laboratory Tests 02/21/20 17:24: POC Whole Blood Glucose [Pending] 02/21/20 18:47: Arterial Blood pH 7.214*L, Arterial Blood Partial Pressure CO2 41.3, Arterial Blood Partial Pressure O2 56.9L, Arterial Blood HCO3 16.3*L, Arterial Blood Oxygen Saturation 83.9*L, Arterial Blood Base Excess -10.7*L, Nba Test Positive 02/22/20 04:20: Sodium Level 145, Potassium Level 5.6H, Chloride Level 111H, Carbon Dioxide Level 21, Anion Gap 13, Blood Urea Nitrogen 113H, Creatinine 4.0H, Estimat Glomerular Filtration Rate 14.7, Glucose Level 337#H, Uric Acid 12.0H, Calcium Level 7.2L Height (Feet): 5 Height (Inches): 11.00 Weight (Pounds): 175 General Appearance: lethargic, confused, severe distress Neck: normal inspection Cardiovascular: regular rhythm Respiratory/Chest: accessory muscle use, rhonchi - bilaterally Abdomen: non tender Extremities: moderate edema Neurologic: unresponsive Jose F Patel MD Feb 22, 2020 15:34
--- NOTE | 2020-02-22 17:54 | Critical Care Progress Note ---
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 D dimer anemia leukocytosis metabolic acidosis Acidemia PLAN care noted IV antibiotics reviewed respiratory care noted meds supportive care suction as able DVT prophylaxis monitor renal function oxygen therapy prognosis poor medications/laboratory data/nursing notes/ICU care reviewed in detail note reviewed and edited care discussed with RN and RT ICU time spent >40 minutes Critical Care - Subjective Interval Events: doing poorly in ICU acidemic ROS Limited/Unobtainable: Yes Condition: critical EKG Rhythm: Sinus Tachycardia I&O: Intake and Output 02/21/20 02/22/20 19:00 07:00 Intake Total 564.5 ml 1008.3 ml Output Total 165 ml 120 ml Balance 399.5 ml 888.3 ml Intake IV Total 564.5 ml 1008.3 ml Output Urine Total 165 ml 120 ml # Bowel Movements 2 1 Critical Care - Objective Last 24 Hour Vital Signs Date Time Temp Pulse Resp B/P (MAP) Pulse Ox O2 Delivery O2 Flow Rate FiO2 02/22/20 17:00 120 25 83/45 (58) 75 02/22/20 16:00 120 02/22/20 16:00 Nasal Cannula 55.0 Nasal Cannula 55.0 02/22/20 16:00 97.8 119 24 81/40 (54) 79 02/22/20 15:20 78 High Flow 55.0 100 02/22/20 15:00 120 23 67/38 (48) 80 02/22/20 14:00 127 27 124/48 (73) 76 02/22/20 13:22 88 29 124/48 (73) 93 02/22/20 13:00 88 29 124/48 (73) 93 02/22/20 12:43 96.8 93 34 114/45 (68) 88 02/22/20 12:00 Nasal Cannula 55.0 Nasal Cannula 55.0 02/22/20 12:00 89 02/22/20 12:00 96.8 93 34 114/46 (68) 88 02/22/20 11:25 92 High Flow 55.0 100 02/22/20 11:00 91 32 110/50 (70) 90 02/22/20 10:00 93 30 104/42 (62) 92 02/22/20 09:00 89 32 100/48 (65) 91 02/22/20 08:00 93 104/52 (69) 93 02/22/20 08:00 90 02/22/20 08:00 98.0 02/22/20 08:00 Nasal Cannula 55.0 Nasal Cannula 55.0 02/22/20 07:00 92 High Flow 55.0 100 02/22/20 07:00 107 98/45 (62) 90 02/22/20 06:00 95 100/45 (63) 95 02/22/20 05:00 96 103/46 (65) 95 02/22/20 04:00 116 02/22/20 04:00 Nasal Cannula 55.0 Nasal Cannula 55.0 02/22/20 04:00 116 103/40 (61) 85 02/22/20 03:16 90 High Flow 55.0 100 02/22/20 03:00 97 36 100/41 (60) 94 02/22/20 02:00 109 38 108/48 (68) 91 02/22/20 01:00 100 37 107/41 (63) 88 02/22/20 00:00 Nasal Cannula 55.0 Nasal Cannula 55.0 02/22/20 00:00 98.5 96 36 102/40 (60) 91 02/21/20 23:24 90 High Flow 55.0 100 02/21/20 23:00 95 36 105/39 (61) 89 02/21/20 22:00 92 36 94/35 (54) 90 02/21/20 21:00 97 38 105/37 (59) 84 02/21/20 20:00 100 02/21/20 20:00 Nasal Cannula 55.0 Nasal Cannula 55.0 02/21/20 20:00 100 37 102/40 (60) 91 02/21/20 19:55 94 High Flow 55.0 100 02/21/20 19:00 103 37 100/44 (62) 87 02/21/20 18:00 104 37 113/42 (65) 83 Labs: Labs Test 02/19/20 23:12 02/20/20 04:38 02/20/20 05:11 02/20/20 07:43 POC Whole Blood Glucose 375 MG/DL (74-106) White Blood Count 12.6 K/UL (4.8-10.8) Red Blood Count 2.90 M/UL (4.70-6.10) Hemoglobin 8.0 G/DL (14.2-18.0) Hematocrit 24.6 % (42.0-52.0) Mean Corpuscular Volume 85 FL (80-99) Mean Corpuscular Hemoglobin 27.5 PG (27.0-31.0) Mean Corpuscular Hemoglobin Concent 32.6 G/DL (32.0-36.0) Red Cell Distribution Width 13.7 % (11.6-14.8) Platelet Count 248 K/UL (150-450) Mean Platelet Volume 5.5 FL (6.5-10.1) Neutrophils (%) (Auto) % (45.0-75.0) Lymphocytes (%) (Auto) % (20.0-45.0) Monocytes (%) (Auto) % (1.0-10.0) Eosinophils (%) (Auto) % (0.0-3.0) Basophils (%) (Auto) % (0.0-2.0) Differential Total Cells Counted 100 Neutrophils % (Manual) 92 % (45-75) Lymphocytes % (Manual) 2 % (20-45) Monocytes % (Manual) 6 % (1-10) Eosinophils % (Manual) 0 % (0-3) Basophils % (Manual) 0 % (0-2) Band Neutrophils 0 % (0-8) Platelet Estimate Adequate Platelet Morphology Normal Hypochromasia 2+ Anisocytosis 1+ Sodium Level 134 MMOL/L (136-145) Potassium Level 4.4 MMOL/L (3.5-5.1) Chloride Level 106 MMOL/L (98-107) Carbon Dioxide Level 15 MMOL/L (21-32) Anion Gap 13 mmol/L (5-15) Blood Urea Nitrogen 79 mg/dL (7-18) Creatinine 3.0 MG/DL (0.55-1.30) Estimat Glomerular Filtration Rate 20.4 mL/min (>60) Glucose Level 356 MG/DL (74-106) Calcium Level 7.6 MG/DL (8.5-10.1) Test 02/20/20 08:16 02/20/20 10:12 02/20/20 11:29 02/20/20 17:34 Arterial Blood pH 7.337 (7.350-7.450) 7.328 (7.350-7.450) Arterial Blood Partial Pressure CO2 29.0 mmHg (35.0-45.0) 29.7 mmHg (35.0-45.0) Arterial Blood Partial Pressure O2 54.1 mmHg (75.0-100.0) 51.2 mmHg (75.0-100.0) Arterial Blood HCO3 15.2 mmol/L (22.0-26.0) 15.2 mmol/L (22.0-26.0) Arterial Blood Oxygen Saturation 82.9 % (95-100) 83.0 % (95-100) Arterial Blood Base Excess -9.6 (-2-2) -9.6 (-2-2) Nba Test Positive Positive POC Whole Blood Glucose 404 MG/DL (74-106) Test 02/20/20 18:37 02/20/20 19:00 02/20/20 20:48 02/20/20 21:54 POC Whole Blood Glucose 391 MG/DL (74-106) Sodium Level 142 MMOL/L (136-145) Potassium Level 4.8 MMOL/L (3.5-5.1) Chloride Level 109 MMOL/L (98-107) Carbon Dioxide Level 17 MMOL/L (21-32) Anion Gap 16 mmol/L (5-15) Blood Urea Nitrogen 85 mg/dL (7-18) Creatinine 3.4 MG/DL (0.55-1.30) Estimat Glomerular Filtration Rate 17.7 mL/min (>60) Glucose Level 396 MG/DL (74-106) Hemoglobin A1c 9.4 % (4.3-6.0) Calcium Level 7.8 MG/DL (8.5-10.1) Test 02/20/20 22:51 02/21/20 00:07 02/21/20 00:55 02/21/20 01:00 Sodium Level 142 MMOL/L (136-145) Potassium Level 5.4 MMOL/L (3.5-5.1) Chloride Level 111 MMOL/L (98-107) Carbon Dioxide Level 20 MMOL/L (21-32) Anion Gap 12 mmol/L (5-15) Blood Urea Nitrogen 85 mg/dL (7-18) Creatinine 3.5 MG/DL (0.55-1.30) Estimat Glomerular Filtration Rate 17.1 mL/min (>60) Glucose Level 235 MG/DL (74-106) Calcium Level 7.7 MG/DL (8.5-10.1) Test 02/21/20 01:49 02/21/20 03:01 02/21/20 04:30 02/21/20 06:40 Sodium Level 143 MMOL/L (136-145) Potassium Level 5.9 MMOL/L (3.5-5.1) Chloride Level 110 MMOL/L (98-107) Carbon Dioxide Level 18 MMOL/L (21-32) Anion Gap 16 mmol/L (5-15) Blood Urea Nitrogen 88 mg/dL (7-18) Creatinine 3.6 MG/DL (0.55-1.30) Estimat Glomerular Filtration Rate 16.6 mL/min (>60) Glucose Level 223 MG/DL (74-106) Uric Acid 10.2 MG/DL (2.6-7.2) Calcium Level 7.8 MG/DL (8.5-10.1) Total Creatine Kinase 44 U/L (26-308) Test 02/21/20 13:00 02/21/20 13:18 02/21/20 17:24 02/21/20 18:47 Urine Random Sodium 33 mmol/L (20-110) Urine Creatinine 92.2 MG/DL (30.0-125.0) Arterial Blood pH 7.214 (7.350-7.450) Arterial Blood Partial Pressure CO2 41.3 mmHg (35.0-45.0) Arterial Blood Partial Pressure O2 56.9 mmHg (75.0-100.0) Arterial Blood HCO3 16.3 mmol/L (22.0-26.0) Arterial Blood Oxygen Saturation 83.9 % (95-100) Arterial Blood Base Excess -10.7 (-2-2) Nba Test Positive Test 02/22/20 04:20 Sodium Level 145 MMOL/L (136-145) Potassium Level 5.6 MMOL/L (3.5-5.1) Chloride Level 111 MMOL/L (98-107) Carbon Dioxide Level 21 MMOL/L (21-32) Anion Gap 13 mmol/L (5-15) Blood Urea Nitrogen 113 mg/dL (7-18) Creatinine 4.0 MG/DL (0.55-1.30) Estimat Glomerular Filtration Rate 14.7 mL/min (>60) Glucose Level 337 MG/DL (74-106) Uric Acid 12.0 MG/DL (2.6-7.2) Calcium Level 7.2 MG/DL (8.5-10.1) Objective: deferred due to COVID Accucheck: 361 Alfred Chavez MD Feb 22, 2020 17:54
[2020-02-22] MEDS: Atorvastatin 80mg tab ORAL SCH (19:37)
[2020-02-23] VITALS (23 sets, daily range): BP systolic 75–114; BP diastolic 38–60
[2020-02-23 05:24] LABS: HEMATOCRIT 27.4 % (42.0-52.0); HEMOGLOBIN 8.8 G/DL (14.2-18.0); MEAN CORPUSCULAR VOLUME 87 FL (80-99); PLATELET COUNT 293 K/UL (150-450); RED BLOOD COUNT 3.15 M/UL (4.70-6.10); RED CELL DISTRIBUTION WIDTH 15.1 % (11.6-14.8); WHITE BLOOD COUNT 21.4 K/UL (4.8-10.8)
[2020-02-23 05:46] LABS: ALANINE AMINOTRANSFERASE 13 U/L (12-78); ALBUMIN 1.2 G/DL (3.4-5.0); ALBUMIN/GLOBULIN RATIO 0.3 (1.0-2.7); ALKALINE PHOSPHATASE 106 U/L (46-116); ANION GAP 13 mmol/L (5-15); ASPARTATE AMINO TRANSFERASE 24 U/L (15-37); BILIRUBIN,TOTAL 0.3 MG/DL (0.2-1.0); BLOOD UREA NITROGEN 120 mg/dL (7-18); CALCIUM 6.3 MG/DL (8.5-10.1); CARBON DIOXIDE 20 MMOL/L (21-32); CHLORIDE 109 MMOL/L (98-107); CREATININE 4.3 MG/DL (0.55-1.30); POTASSIUM 5.7 MMOL/L (3.5-5.1); SODIUM 142 MMOL/L (136-145)
[2020-02-23] MEDS: NovoLOG Insulin Flexpen SUBQ SCH ×6 (06:44→18:13)
--- NOTE | 2020-02-23 08:08 | Critical Care Progress Note ---
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 D dimer anemia leukocytosis metabolic acidosis Acidemia Fungemia profound hypoxemia Hypotension PLAN care noted IV antibiotics reviewed antifungals respiratory care noted meds supportive care suction as able DVT prophylaxis monitor renal function oxygen therapy prognosis poor cannot optimize DNR status confirmed medications/laboratory data/nursing notes/ICU care reviewed in detail note reviewed and edited care discussed with RN and RT ICU time spent >40 minutes Critical Care - Subjective Interval Events: doing poorly family aware now with yeast in the body fluid cultures ROS Limited/Unobtainable: Yes Condition: critical EKG Rhythm: Sinus Tachycardia I&O: Intake and Output 02/22/20 02/23/20 19:00 07:00 Intake Total 1655 ml 1400 ml Output Total 105 ml 80 ml Balance 1550 ml 1320 ml Intake IV Total 1655 ml 1400 ml Output Urine Total 105 ml 80 ml # Bowel Movements 3 3 Critical Care - Objective Last 24 Hour Vital Signs Date Time Temp Pulse Resp B/P (MAP) Pulse Ox O2 Delivery O2 Flow Rate FiO2 02/23/20 07:30 88 High Flow 55.0 100 02/23/20 07:00 80 27 105/42 (63) 83 02/23/20 06:00 81 28 106/40 (62) 83 02/23/20 05:00 82 28 108/54 (72) 81 02/23/20 04:00 Nasal Cannula 55.0 Nasal Cannula 55.0 02/23/20 04:00 85 02/23/20 04:00 85 29 105/44 (64) 83 02/23/20 03:21 92 High Flow 55.0 100 02/23/20 03:00 83 28 107/43 (64) 81 02/23/20 02:00 80 28 102/42 (62) 83 02/23/20 01:00 82 27 97/60 (72) 86 02/23/20 00:00 Nasal Cannula 55.0 Nasal Cannula 55.0 02/23/20 00:00 86 30 99/54 (69) 89 02/22/20 23:09 93 High Flow 55.0 100 02/22/20 23:00 87 29 105/50 (68) 89 02/22/20 22:00 83 27 88/58 (68) 85 02/22/20 21:00 88 28 103/56 (72) 87 02/22/20 20:00 92 High Flow 55.0 100 02/22/20 20:00 Nasal Cannula 55.0 Nasal Cannula 55.0 02/22/20 20:00 91 29 100/49 (66) 91 02/22/20 20:00 91 02/22/20 19:00 93 29 104/49 (67) 92 02/22/20 18:00 88 29 95/40 (58) 82 02/22/20 17:00 120 25 83/45 (58) 75 02/22/20 16:00 120 02/22/20 16:00 Nasal Cannula 55.0 Nasal Cannula 55.0 02/22/20 16:00 97.8 119 24 81/40 (54) 79 02/22/20 15:20 78 High Flow 55.0 100 02/22/20 15:00 120 23 67/38 (48) 80 02/22/20 14:00 127 27 124/48 (73) 76 02/22/20 13:22 88 29 124/48 (73) 93 02/22/20 13:00 88 29 124/48 (73) 93 02/22/20 12:43 96.8 93 34 114/45 (68) 88 02/22/20 12:00 Nasal Cannula 55.0 Nasal Cannula 55.0 02/22/20 12:00 89 02/22/20 12:00 96.8 93 34 114/46 (68) 88 02/22/20 11:25 92 High Flow 55.0 100 02/22/20 11:00 91 32 110/50 (70) 90 02/22/20 10:00 93 30 104/42 (62) 92 02/22/20 09:00 89 32 100/48 (65) 91 Labs: Labs Test 02/20/20 08:16 02/20/20 10:12 02/20/20 11:29 02/20/20 17:34 Arterial Blood pH 7.337 (7.350-7.450) 7.328 (7.350-7.450) Arterial Blood Partial Pressure CO2 29.0 mmHg (35.0-45.0) 29.7 mmHg (35.0-45.0) Arterial Blood Partial Pressure O2 54.1 mmHg (75.0-100.0) 51.2 mmHg (75.0-100.0) Arterial Blood HCO3 15.2 mmol/L (22.0-26.0) 15.2 mmol/L (22.0-26.0) Arterial Blood Oxygen Saturation 82.9 % (95-100) 83.0 % (95-100) Arterial Blood Base Excess -9.6 (-2-2) -9.6 (-2-2) Nba Test Positive Positive POC Whole Blood Glucose 404 MG/DL (74-106) Test 02/20/20 18:37 02/20/20 19:00 02/20/20 20:48 02/20/20 21:54 POC Whole Blood Glucose 391 MG/DL (74-106) Sodium Level 142 MMOL/L (136-145) Potassium Level 4.8 MMOL/L (3.5-5.1) Chloride Level 109 MMOL/L (98-107) Carbon Dioxide Level 17 MMOL/L (21-32) Anion Gap 16 mmol/L (5-15) Blood Urea Nitrogen 85 mg/dL (7-18) Creatinine 3.4 MG/DL (0.55-1.30) Estimat Glomerular Filtration Rate 17.7 mL/min (>60) Glucose Level 396 MG/DL (74-106) Hemoglobin A1c 9.4 % (4.3-6.0) Calcium Level 7.8 MG/DL (8.5-10.1) Test 02/20/20 22:51 02/21/20 00:07 02/21/20 00:55 02/21/20 01:00 Sodium Level 142 MMOL/L (136-145) Potassium Level 5.4 MMOL/L (3.5-5.1) Chloride Level 111 MMOL/L (98-107) Carbon Dioxide Level 20 MMOL/L (21-32) Anion Gap 12 mmol/L (5-15) Blood Urea Nitrogen 85 mg/dL (7-18) Creatinine 3.5 MG/DL (0.55-1.30) Estimat Glomerular Filtration Rate 17.1 mL/min (>60) Glucose Level 235 MG/DL (74-106) Calcium Level 7.7 MG/DL (8.5-10.1) Test 02/21/20 01:49 02/21/20 03:01 02/21/20 04:30 02/21/20 06:40 Sodium Level 143 MMOL/L (136-145) Potassium Level 5.9 MMOL/L (3.5-5.1) Chloride Level 110 MMOL/L (98-107) Carbon Dioxide Level 18 MMOL/L (21-32) Anion Gap 16 mmol/L (5-15) Blood Urea Nitrogen 88 mg/dL (7-18) Creatinine 3.6 MG/DL (0.55-1.30) Estimat Glomerular Filtration Rate 16.6 mL/min (>60) Glucose Level 223 MG/DL (74-106) Uric Acid 10.2 MG/DL (2.6-7.2) Calcium Level 7.8 MG/DL (8.5-10.1) Total Creatine Kinase 44 U/L (26-308) Test 02/21/20 13:00 02/21/20 13:18 02/21/20 17:24 02/21/20 18:47 Urine Random Sodium 33 mmol/L (20-110) Urine Creatinine 92.2 MG/DL (30.0-125.0) Arterial Blood pH 7.214 (7.350-7.450) Arterial Blood Partial Pressure CO2 41.3 mmHg (35.0-45.0) Arterial Blood Partial Pressure O2 56.9 mmHg (75.0-100.0) Arterial Blood HCO3 16.3 mmol/L (22.0-26.0) Arterial Blood Oxygen Saturation 83.9 % (95-100) Arterial Blood Base Excess -10.7 (-2-2) Nba Test Positive Test 02/22/20 04:20 02/22/20 12:20 02/23/20 04:25 Sodium Level 145 MMOL/L (136-145) 142 MMOL/L (136-145) Potassium Level 5.6 MMOL/L (3.5-5.1) 5.7 MMOL/L (3.5-5.1) Chloride Level 111 MMOL/L (98-107) 109 MMOL/L (98-107) Carbon Dioxide Level 21 MMOL/L (21-32) 20 MMOL/L (21-32) Anion Gap 13 mmol/L (5-15) 13 mmol/L (5-15) Blood Urea Nitrogen 113 mg/dL (7-18) 120 mg/dL (7-18) Creatinine 4.0 MG/DL (0.55-1.30) 4.3 MG/DL (0.55-1.30) Estimat Glomerular Filtration Rate 14.7 mL/min (>60) 13.5 mL/min (>60) Glucose Level 337 MG/DL (74-106) 282 MG/DL (74-106) Uric Acid 12.0 MG/DL (2.6-7.2) Calcium Level 7.2 MG/DL (8.5-10.1) 6.3 MG/DL (8.5-10.1) White Blood Count 21.4 K/UL (4.8-10.8) Red Blood Count 3.15 M/UL (4.70-6.10) Hemoglobin 8.8 G/DL (14.2-18.0) Hematocrit 27.4 % (42.0-52.0) Mean Corpuscular Volume 87 FL (80-99) Mean Corpuscular Hemoglobin 27.9 PG (27.0-31.0) Mean Corpuscular Hemoglobin Concent 32.0 G/DL (32.0-36.0) Red Cell Distribution Width 15.1 % (11.6-14.8) Platelet Count 293 K/UL (150-450) Mean Platelet Volume 5.5 FL (6.5-10.1) Neutrophils (%) (Auto) % (45.0-75.0) Lymphocytes (%) (Auto) % (20.0-45.0) Monocytes (%) (Auto) % (1.0-10.0) Eosinophils (%) (Auto) % (0.0-3.0) Basophils (%) (Auto) % (0.0-2.0) Total Bilirubin 0.3 MG/DL (0.2-1.0) Aspartate Amino Transf (AST/SGOT) 24 U/L (15-37) Alanine Aminotransferase (ALT/SGPT) 13 U/L (12-78) Alkaline Phosphatase 106 U/L (46-116) Total Protein 5.8 G/DL (6.4-8.2) Albumin 1.2 G/DL (3.4-5.0) Globulin 4.6 g/dL Albumin/Globulin Ratio 0.3 (1.0-2.7) Objective: deferred due to COVID Accucheck: 330 Alfred Chavez MD Feb 23, 2020 08:08
[2020-02-23] MEDS: Aspirin Baby 81mg ORAL SCH (09:00)
[2020-02-23] MEDS: Carvedilol 6.25mg Tab ORAL SCH ×2 (09:00→20:34)
[2020-02-23] MEDS ORDERED: Micafungin 100 MG in NS 110 ML IVPB SCH (09:00)
[2020-02-23] MEDS: Solu-MEDROL 125mg Inj IVP SCH ×2 (09:09→20:34)
[2020-02-23] MEDS: Enoxaparin 30mg Inj SUBQ SCH (09:10)
[2020-02-23] MEDS: Pantoprazole Inj IVP SCH ×2 (09:10→20:34)
[2020-02-23] MEDS ORDERED: Sodium Polystyrene Sulfonate Enema RECTAL ONE (10:30)
[2020-02-23] MEDS: levETIRAcetam 500mg/NS100ml 100 ML IVPB SCH ×2 (10:39→22:47)
--- NOTE | 2020-02-23 10:46 | Surgery Progress Note ---
Surgery Progress Note Subjective Symptoms: worse, other Objective Last 24 Hour Vital Signs Date Time Temp Pulse Resp B/P (MAP) Pulse Ox O2 Delivery O2 Flow Rate FiO2 02/23/20 10:00 73 19 101/49 (66) 88 02/23/20 09:00 76 23 97/38 (57) 90 02/23/20 08:00 Nasal Cannula 55.0 Nasal Cannula 55.0 02/23/20 08:00 96.8 77 23 111/45 (67) 86 02/23/20 08:00 77 02/23/20 07:30 88 High Flow 55.0 100 02/23/20 07:00 80 27 105/42 (63) 83 02/23/20 06:00 81 28 106/40 (62) 83 02/23/20 05:00 82 28 108/54 (72) 81 02/23/20 04:00 Nasal Cannula 55.0 Nasal Cannula 55.0 02/23/20 04:00 85 02/23/20 04:00 85 29 105/44 (64) 83 02/23/20 03:21 92 High Flow 55.0 100 02/23/20 03:00 83 28 107/43 (64) 81 02/23/20 02:00 80 28 102/42 (62) 83 02/23/20 01:00 82 27 97/60 (72) 86 02/23/20 00:00 Nasal Cannula 55.0 Nasal Cannula 55.0 02/23/20 00:00 86 30 99/54 (69) 89 02/22/20 23:09 93 High Flow 55.0 100 02/22/20 23:00 87 29 105/50 (68) 89 02/22/20 22:00 83 27 88/58 (68) 85 02/22/20 21:00 88 28 103/56 (72) 87 02/22/20 20:00 92 High Flow 55.0 100 02/22/20 20:00 Nasal Cannula 55.0 Nasal Cannula 55.0 02/22/20 20:00 91 29 100/49 (66) 91 02/22/20 20:00 91 02/22/20 19:00 93 29 104/49 (67) 92 02/22/20 18:00 88 29 95/40 (58) 82 02/22/20 17:00 120 25 83/45 (58) 75 02/22/20 16:00 120 02/22/20 16:00 Nasal Cannula 55.0 Nasal Cannula 55.0 02/22/20 16:00 97.8 119 24 81/40 (54) 79 02/22/20 15:20 78 High Flow 55.0 100 02/22/20 15:00 120 23 67/38 (48) 80 02/22/20 14:00 127 27 124/48 (73) 76 02/22/20 13:22 88 29 124/48 (73) 93 02/22/20 13:00 88 29 124/48 (73) 93 02/22/20 12:43 96.8 93 34 114/45 (68) 88 02/22/20 12:00 Nasal Cannula 55.0 Nasal Cannula 55.0 02/22/20 12:00 89 02/22/20 12:00 96.8 93 34 114/46 (68) 88 02/22/20 11:25 92 High Flow 55.0 100 02/22/20 11:00 91 32 110/50 (70) 90 I&O Intake and Output 02/22/20 02/23/20 19:00 07:00 Intake Total 1655 ml 1550 ml Output Total 105 ml 80 ml Balance 1550 ml 1470 ml Intake IV Total 1655 ml 1550 ml Output Urine Total 105 ml 80 ml # Bowel Movements 3 3 Dressing: other Wound: other Cardiovascular: RSR Respiratory: decreased breath sounds Abdomen: soft, non-distended, decreased bowel sounds Extremities: edema, no cyanosis Laboratory Tests Test 02/22/20 12:20 02/23/20 04:25 POC Whole Blood Glucose Pending White Blood Count 21.4 K/UL (4.8-10.8) H Red Blood Count 3.15 M/UL (4.70-6.10) L Hemoglobin 8.8 G/DL (14.2-18.0) L Hematocrit 27.4 % (42.0-52.0) L Mean Corpuscular Volume 87 FL (80-99) Mean Corpuscular Hemoglobin 27.9 PG (27.0-31.0) Mean Corpuscular Hemoglobin Concent 32.0 G/DL (32.0-36.0) Red Cell Distribution Width 15.1 % (11.6-14.8) H Platelet Count 293 K/UL (150-450) Mean Platelet Volume 5.5 FL (6.5-10.1) L Neutrophils (%) (Auto) % (45.0-75.0) Lymphocytes (%) (Auto) % (20.0-45.0) Monocytes (%) (Auto) % (1.0-10.0) Eosinophils (%) (Auto) % (0.0-3.0) Basophils (%) (Auto) % (0.0-2.0) Differential Total Cells Counted 100 Neutrophils % (Manual) 92 % (45-75) H Lymphocytes % (Manual) 5 % (20-45) L Monocytes % (Manual) 3 % (1-10) Eosinophils % (Manual) 0 % (0-3) Basophils % (Manual) 0 % (0-2) Band Neutrophils 0 % (0-8) Platelet Estimate Adequate Platelet Morphology Normal Hypochromasia 1+ Anisocytosis 1+ Sodium Level 142 MMOL/L (136-145) Potassium Level 5.7 MMOL/L (3.5-5.1) H Chloride Level 109 MMOL/L (98-107) H Carbon Dioxide Level 20 MMOL/L (21-32) L Anion Gap 13 mmol/L (5-15) Blood Urea Nitrogen 120 mg/dL (7-18) H Creatinine 4.3 MG/DL (0.55-1.30) H Estimat Glomerular Filtration Rate 13.5 mL/min (>60) Glucose Level 282 MG/DL (74-106) H Calcium Level 6.3 MG/DL (8.5-10.1) L Total Bilirubin 0.3 MG/DL (0.2-1.0) Aspartate Amino Transf (AST/SGOT) 24 U/L (15-37) Alanine Aminotransferase (ALT/SGPT) 13 U/L (12-78) Alkaline Phosphatase 106 U/L (46-116) Total Protein 5.8 G/DL (6.4-8.2) L Albumin 1.2 G/DL (3.4-5.0) L Globulin 4.6 g/dL Albumin/Globulin Ratio 0.3 (1.0-2.7) L Plan Problems: (1) Sacral decubitus ulcer Assessment & Plan: Pt presented on admission with multiple Pressure injuries, MASD. Ecchymotic areas R ventral forearm. Unstageable Sacral Pressure injury(L)11cm x (W)9.5cm. Base of wound is 25% kinza, 75%scattered areas of mixed soft necrosis and slough. Borders are irregular and macerated. Periwound is indurated with additional erythema and shearing. Partial thickness Pressure injury upper R Buttocks(L)2.2cm x (W)1.5cm. Base of wound is moist and viable. Edges flat and adherent to base of wound. MASD Suprapubis, penis ,scrotum ,Elvia-anal,and medial/ posterior upper aspects of both thighs.Affected areas are erythematous with scattered satellite lesions. Full thickness ulcer distal /medial L lower ext in close proximity medial malleolus(L)1.8cm x (W)1.6cm. Base of wound is 90% dry brown eschar cap ,10% kinza . Edges adherent to base of wound. No elevation in skin temp, erythema or induration periwound. R Heel is boggy with non-Blanchable erythema. L Heel is boggy but blanchable. R 1st metatarsal nailbed and matrix are black.NO erythema or changes in skin temp or colour noted to R 1st metatarsal. Tx.Plan: Cleanse Sacral wound with Saline. Apply TheraHoney. Apply Moisture Barrier Periwound. Cover with Optifoam drsg Daily and prn. Cleanse wound distal/ medial L lower ext. Apply Cavilon Skin Barrier periwound. Cover with Optifoam drsg. Change every 3 days and prn. Apply Cavilon Skin Barrier to bilat heels and Malleoli. Cover each site with Optifoam drsg. Change every 7 days and prn. Reposition at least every 2hours or as tolerated. Off-load heels with pillow. APM/SHAREE Mattress overlay. (2) Malnutrition (3) Leukocytosis Assessment & Plan: COVID + declining respiratory declining family has decided for DNI/dNR no line no intubation prognosis guarded (4) Hypoxia (5) UTI (urinary tract infection) (6) Pneumonia involving left lung (7) COVID-19 Assessment & Plan: ++ (8) Hyperglycemia (9) Renal failure Jorge Howard Feb 23, 2020 10:46
--- NOTE | 2020-02-23 10:52 | Infectious Diseases Prog Note ---
Assessment/Plan Assessment/Plan A: 1. COVID-19 pneumonia 2. Urinary tract infection with Klebsiella 3. Diabetes. 4. Hyperlipidemia. 5. Status post HOSIERY REPAIRER shunt placement. 6. Acute renal failure. 7. Klebsiella sepsis 8. Hypoxic respiratory failure 9. Pressure ulcers 10. DNR status 11. yeast in blister cultures 12. Hyperkalemia 13. Hyperuricemia 14. DNR status PLAN: 1. continue ceftriaxone. 2. Continue Micafungin 3. Continue Solumedrol 4. The patient does not qualify for Remdesivir. 5. Received ivermectin one dose. 6. Poor prognosis 7. Continue isolation. Subjective ROS Limited/Unobtainable: Yes Constitutional: Reports: other - transferred to ICU Allergies: Coded Allergies: IODINE (Verified Allergy, Unknown, 02/17/20) Uncoded Allergies: SHELLFISH (Allergy, Unknown, 02/17/20) Objective Last 24 Hour Vital Signs Date Time Temp Pulse Resp B/P (MAP) Pulse Ox O2 Delivery O2 Flow Rate FiO2 02/23/20 10:00 73 19 101/49 (66) 88 02/23/20 09:00 76 23 97/38 (57) 90 02/23/20 08:00 Nasal Cannula 55.0 Nasal Cannula 55.0 02/23/20 08:00 96.8 77 23 111/45 (67) 86 02/23/20 08:00 77 02/23/20 07:30 88 High Flow 55.0 100 02/23/20 07:00 80 27 105/42 (63) 83 02/23/20 06:00 81 28 106/40 (62) 83 02/23/20 05:00 82 28 108/54 (72) 81 02/23/20 04:00 Nasal Cannula 55.0 Nasal Cannula 55.0 02/23/20 04:00 85 02/23/20 04:00 85 29 105/44 (64) 83 02/23/20 03:21 92 High Flow 55.0 100 02/23/20 03:00 83 28 107/43 (64) 81 02/23/20 02:00 80 28 102/42 (62) 83 02/23/20 01:00 82 27 97/60 (72) 86 02/23/20 00:00 Nasal Cannula 55.0 Nasal Cannula 55.0 02/23/20 00:00 86 30 99/54 (69) 89 02/22/20 23:09 93 High Flow 55.0 100 02/22/20 23:00 87 29 105/50 (68) 89 02/22/20 22:00 83 27 88/58 (68) 85 02/22/20 21:00 88 28 103/56 (72) 87 02/22/20 20:00 92 High Flow 55.0 100 02/22/20 20:00 Nasal Cannula 55.0 Nasal Cannula 55.0 02/22/20 20:00 91 29 100/49 (66) 91 02/22/20 20:00 91 02/22/20 19:00 93 29 104/49 (67) 92 02/22/20 18:00 88 29 95/40 (58) 82 02/22/20 17:00 120 25 83/45 (58) 75 02/22/20 16:00 120 02/22/20 16:00 Nasal Cannula 55.0 Nasal Cannula 55.0 02/22/20 16:00 97.8 119 24 81/40 (54) 79 02/22/20 15:20 78 High Flow 55.0 100 02/22/20 15:00 120 23 67/38 (48) 80 02/22/20 14:00 127 27 124/48 (73) 76 02/22/20 13:22 88 29 124/48 (73) 93 02/22/20 13:00 88 29 124/48 (73) 93 02/22/20 12:43 96.8 93 34 114/45 (68) 88 02/22/20 12:00 Nasal Cannula 55.0 Nasal Cannula 55.0 02/22/20 12:00 89 02/22/20 12:00 96.8 93 34 114/46 (68) 88 02/22/20 11:25 92 High Flow 55.0 100 02/22/20 11:00 91 32 110/50 (70) 90 Height (Feet): 5 Height (Inches): 11.00 Weight (Pounds): 175 HEENT: mucous membranes moist Respiratory/Chest: other - Oxygen by rebreathing mask Cardiovascular: normal rate Abdomen: soft, non tender Extremities: no edema Neurologic/Psychiatric: unresponsiveness Laboratory Tests Test 02/22/20 12:20 02/23/20 04:25 POC Whole Blood Glucose Pending White Blood Count 21.4 K/UL (4.8-10.8) H Red Blood Count 3.15 M/UL (4.70-6.10) L Hemoglobin 8.8 G/DL (14.2-18.0) L Hematocrit 27.4 % (42.0-52.0) L Mean Corpuscular Volume 87 FL (80-99) Mean Corpuscular Hemoglobin 27.9 PG (27.0-31.0) Mean Corpuscular Hemoglobin Concent 32.0 G/DL (32.0-36.0) Red Cell Distribution Width 15.1 % (11.6-14.8) H Platelet Count 293 K/UL (150-450) Mean Platelet Volume 5.5 FL (6.5-10.1) L Neutrophils (%) (Auto) % (45.0-75.0) Lymphocytes (%) (Auto) % (20.0-45.0) Monocytes (%) (Auto) % (1.0-10.0) Eosinophils (%) (Auto) % (0.0-3.0) Basophils (%) (Auto) % (0.0-2.0) Differential Total Cells Counted 100 Neutrophils % (Manual) 92 % (45-75) H Lymphocytes % (Manual) 5 % (20-45) L Monocytes % (Manual) 3 % (1-10) Eosinophils % (Manual) 0 % (0-3) Basophils % (Manual) 0 % (0-2) Band Neutrophils 0 % (0-8) Platelet Estimate Adequate Platelet Morphology Normal Hypochromasia 1+ Anisocytosis 1+ Sodium Level 142 MMOL/L (136-145) Potassium Level 5.7 MMOL/L (3.5-5.1) H Chloride Level 109 MMOL/L (98-107) H Carbon Dioxide Level 20 MMOL/L (21-32) L Anion Gap 13 mmol/L (5-15) Blood Urea Nitrogen 120 mg/dL (7-18) H Creatinine 4.3 MG/DL (0.55-1.30) H Estimat Glomerular Filtration Rate 13.5 mL/min (>60) Glucose Level 282 MG/DL (74-106) H Calcium Level 6.3 MG/DL (8.5-10.1) L Total Bilirubin 0.3 MG/DL (0.2-1.0) Aspartate Amino Transf (AST/SGOT) 24 U/L (15-37) Alanine Aminotransferase (ALT/SGPT) 13 U/L (12-78) Alkaline Phosphatase 106 U/L (46-116) Total Protein 5.8 G/DL (6.4-8.2) L Albumin 1.2 G/DL (3.4-5.0) L Globulin 4.6 g/dL Albumin/Globulin Ratio 0.3 (1.0-2.7) L Current Medications Medications (Trade) Dose Ordered Sig/Carlos A Route PRN Reason Start Time Stop Time Status Last Admin Dose Admin Acetaminophen (Tylenol) 650 mg Q6H PRN ORAL For Headache 02/18/20 15:36 03/19/20 15:35 Acetaminophen (Tylenol) 650 mg Q6HR PRN RECTAL Temp >100.5 02/20/20 15:30 03/21/20 15:29 Albuterol Sulfate (Proventil MDI) 2 puff Q6H PRN INH Shortness of Breath 02/18/20 15:37 05/18/20 15:36 Aspirin (ASA) 81 mg DAILY ORAL 02/19/20 09:00 04/03/20 08:59 Atorvastatin Calcium (Lipitor) 40 mg BEDTIME ORAL 02/18/20 21:00 05/18/20 20:59 Carvedilol (Coreg) 6.25 mg EVERY 12 HOURS ORAL 02/18/20 21:00 03/19/20 08:59 Ceftriaxone Sodium 1 gm/ Dextrose 55 ml @ 110 mls/hr Q24H IVPB 02/21/20 12:00 02/28/20 11:59 02/22/20 12:10 Dextrose (Dextrose 50%) 25 ml Q30M PRN IV Hypoglycemia 02/21/20 03:30 05/21/20 03:29 Dextrose (Dextrose 50%) 50 ml Q30M PRN IV Hypoglycemia 02/21/20 03:30 05/21/20 03:29 Enoxaparin Sodium (Lovenox) 30 mg DAILY SUBQ 02/19/20 09:00 05/18/20 08:59 02/23/20 09:10 Ferrous Sulfate (Feosol) 325 mg DAILY ORAL 02/19/20 09:00 05/18/20 08:59 Finasteride (Proscar) 5 mg DAILY ORAL 02/19/20 09:00 05/18/20 08:59 Insulin Aspart (NovoLOG) EVERY 6 HOURS SUBQ 02/21/20 12:00 05/21/20 06:29 02/23/20 06:44 Insulin Aspart (NovoLOG) 6 units Q6HR SUBQ 02/22/20 00:00 05/22/20 00:00 02/23/20 06:46 Levetiracetam 100 ml @ 400 mls/hr Q12H IVPB 02/18/20 23:30 05/18/20 11:29 02/23/20 10:39 Methylprednisolone Sodium Succinate (Solu-MEDROL) 60 mg Q12HR IVP 02/20/20 21:00 05/20/20 20:59 02/23/20 09:09 Micafungin Sodium 100 mg/Sodium Chloride 110 ml @ 110 mls/hr Q24H IVPB 02/23/20 09:00 03/01/20 08:59 02/23/20 09:10 Ondansetron HCl (Zofran) 4 mg Q6H PRN IVP Nausea & Vomiting 02/18/20 21:15 03/19/20 03:14 Pantoprazole (Protonix) 40 mg EVERY 12 HOURS IVP 02/18/20 21:00 03/19/20 20:59 02/23/20 09:10 Sodium Chloride 1,000 ml @ 150 mls/hr Q6H40M IV 02/22/20 16:00 03/23/20 15:59 02/23/20 05:20 Tamsulosin HCl (Flomax) 0.4 mg DAILY ORAL 02/19/20 09:00 03/19/20 08:59 Sarkis Clinton MD Feb 23, 2020 10:52
[2020-02-23] MEDS: cefTRIAXone 1 GM in D5W 55 ML IVPB SCH (11:42)
--- NOTE | 2020-02-23 11:48 | Nephrology Progress Note ---
Assessment/Plan Problem List: (1) Acute hypoxemic respiratory failure due to COVID-19 (2) Severe sepsis (3) Metabolic acidosis (4) ALMAZ (acute kidney injury) (5) COVID-19 (6) Pneumonia involving left lung (7) UTI (urinary tract infection) (8) Hypoxia Plan bicarb drip, increase fluids as hypotensive, SS inulin additional lispro, prerenal indices , lasix for K diuresis and oliguria now dnr, grave prognosis Subjective ROS Limited/Unobtainable: Yes Objective Objective Last 24 Hour Vital Signs Date Time Temp Pulse Resp B/P (MAP) Pulse Ox O2 Delivery O2 Flow Rate FiO2 02/23/20 11:00 71 21 114/50 (71) 88 02/23/20 10:00 73 19 101/49 (66) 88 02/23/20 09:00 76 23 97/38 (57) 90 02/23/20 08:00 Nasal Cannula 55.0 Nasal Cannula 55.0 02/23/20 08:00 96.8 77 23 111/45 (67) 86 02/23/20 08:00 77 02/23/20 07:30 88 High Flow 55.0 100 02/23/20 07:00 80 27 105/42 (63) 83 02/23/20 06:00 81 28 106/40 (62) 83 02/23/20 05:00 82 28 108/54 (72) 81 02/23/20 04:00 Nasal Cannula 55.0 Nasal Cannula 55.0 02/23/20 04:00 85 02/23/20 04:00 85 29 105/44 (64) 83 02/23/20 03:21 92 High Flow 55.0 100 02/23/20 03:00 83 28 107/43 (64) 81 02/23/20 02:00 80 28 102/42 (62) 83 02/23/20 01:00 82 27 97/60 (72) 86 02/23/20 00:00 Nasal Cannula 55.0 Nasal Cannula 55.0 02/23/20 00:00 86 30 99/54 (69) 89 02/22/20 23:09 93 High Flow 55.0 100 02/22/20 23:00 87 29 105/50 (68) 89 02/22/20 22:00 83 27 88/58 (68) 85 02/22/20 21:00 88 28 103/56 (72) 87 02/22/20 20:00 92 High Flow 55.0 100 02/22/20 20:00 Nasal Cannula 55.0 Nasal Cannula 55.0 02/22/20 20:00 91 29 100/49 (66) 91 02/22/20 20:00 91 02/22/20 19:00 93 29 104/49 (67) 92 02/22/20 18:00 88 29 95/40 (58) 82 02/22/20 17:00 120 25 83/45 (58) 75 02/22/20 16:00 120 02/22/20 16:00 Nasal Cannula 55.0 Nasal Cannula 55.0 02/22/20 16:00 97.8 119 24 81/40 (54) 79 02/22/20 15:20 78 High Flow 55.0 100 02/22/20 15:00 120 23 67/38 (48) 80 02/22/20 14:00 127 27 124/48 (73) 76 02/22/20 13:22 88 29 124/48 (73) 93 02/22/20 13:00 88 29 124/48 (73) 93 02/22/20 12:43 96.8 93 34 114/45 (68) 88 02/22/20 12:00 Nasal Cannula 55.0 Nasal Cannula 55.0 02/22/20 12:00 89 02/22/20 12:00 96.8 93 34 114/46 (68) 88 Intake and Output 02/22/20 02/23/20 19:00 07:00 Intake Total 1655 ml 1550 ml Output Total 105 ml 80 ml Balance 1550 ml 1470 ml Intake IV Total 1655 ml 1550 ml Output Urine Total 105 ml 80 ml # Bowel Movements 3 3 Laboratory Tests 02/22/20 12:20: POC Whole Blood Glucose [Pending] 02/23/20 04:25: White Blood Count 21.4H, Red Blood Count 3.15L, Hemoglobin 8.8L, Hematocrit 27.4L, Mean Corpuscular Volume 87, Mean Corpuscular Hemoglobin 27.9, Mean Corpuscular Hemoglobin Concent 32.0, Red Cell Distribution Width 15.1H, Platelet Count 293, Mean Platelet Volume 5.5L, Neutrophils (%) (Auto) , Lymphocytes (%) (Auto) , Monocytes (%) (Auto) , Eosinophils (%) (Auto) , Basophils (%) (Auto) , Differential Total Cells Counted 100, Neutrophils % ( Manual) 92H, Lymphocytes % (Manual) 5L, Monocytes % (Manual) 3, Eosinophils % ( Manual) 0, Basophils % (Manual) 0, Band Neutrophils 0, Platelet Estimate Adequate, Platelet Morphology Normal, Hypochromasia 1+, Anisocytosis 1+, Sodium Level 142, Potassium Level 5.7H, Chloride Level 109H, Carbon Dioxide Level 20L, Anion Gap 13, Blood Urea Nitrogen 120H, Creatinine 4.3H, Estimat Glomerular Filtration Rate 13.5, Glucose Level 282H, Calcium Level 6.3L, Total Bilirubin 0.3, Aspartate Amino Transf (AST/SGOT) 24, Alanine Aminotransferase (ALT/SGPT) 13, Alkaline Phosphatase 106, Total Protein 5.8L, Albumin 1.2L, Globulin 4.6, Albumin/Globulin Ratio 0.3L Height (Feet): 5 Height (Inches): 11.00 Weight (Pounds): 175 General Appearance: lethargic, confused Cardiovascular: regular rhythm, tachycardia Respiratory/Chest: accessory muscle use, rhonchi - bilaterally Abdomen: soft Extremities: trace edema Neurologic: disoriented, unresponsive Jose F Patel MD Feb 23, 2020 11:48
[2020-02-23] MEDS ORDERED: Tubing IV Secondary IV ONE (17:14)
[2020-02-23] MEDS ORDERED: 1/2 NS 1000ml IV ONE (17:14)
[2020-02-23] MEDS ORDERED: NS 500ML ONE (17:14)
[2020-02-23] MEDS: Atorvastatin 80mg tab ORAL SCH (20:34)
[2020-02-23] MEDS ORDERED: Acetaminophen 650 MG SUPP RECTAL PRN (21:48)
[2020-02-23] MEDS ORDERED: Albuterol 90mcg Inhaler 8gm INH PRN (21:48)
[2020-02-24] VITALS: BP 90/44
[2020-02-24 04:00] VITALS: BP 101/56
[2020-02-24] MEDS: NovoLOG Insulin Flexpen SUBQ SCH ×6 (05:17→12:27)
[2020-02-24 08:00] VITALS: BP 98/48
[2020-02-24] MEDS: levETIRAcetam 500mg/NS100ml 100 ML IVPB SCH (08:24)
--- NOTE | 2020-02-24 08:27 | Critical Care Progress Note ---
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 D dimer anemia leukocytosis metabolic acidosis Acidemia Fungemia profound hypoxemia Hypotension PLAN care noted IV antibiotics reviewed antifungals IV respiratory care noted noted meds supportive care suction as able DVT prophylaxis monitor renal function oxygen therapy prognosis poor cannot optimize DNR status confirmed medications/laboratory data/nursing notes reviewed in detail note reviewed and edited care discussed with RN and RT Critical Care - Subjective Interval Events: care noted poor oxygenation not improved BP labile Condition: critical EKG Rhythm: Sinus Rhythm I&O: Intake and Output 02/23/20 02/24/20 19:00 07:00 Intake Total 1990 ml 2560.0 ml Output Total 0 ml 250 ml Balance 1990 ml 2310.0 ml Intake IV Total 1990 ml 2560.0 ml Output Urine Total 0 ml 250 ml # Bowel Movements 5 2 Critical Care - Objective Last 24 Hour Vital Signs Date Time Temp Pulse Resp B/P (MAP) Pulse Ox O2 Delivery O2 Flow Rate FiO2 02/24/20 08:00 97.5 77 16 98/48 (65) 76 02/24/20 07:12 77 High Flow 55.0 100 02/24/20 04:00 97.3 65 18 101/56 (71) 86 02/24/20 04:00 Nasal Cannula 55.0 Non-Rebreather 02/24/20 03:38 85 High Flow 55.0 100 02/24/20 03:37 79 02/24/20 00:00 97.3 70 18 90/44 (59) 83 02/24/20 00:00 Nasal Cannula 55.0 Nasal Cannula 55.0 02/23/20 23:29 66 02/23/20 23:13 86 High Flow 55.0 100 02/23/20 22:00 97.5 111 16 92/45 (61) 80 02/23/20 21:00 112 19 78/50 (59) 83 02/23/20 20:01 83 High Flow 55.0 100 02/23/20 20:00 97.3 110 16 86/41 (56) 80 02/23/20 20:00 Nasal Cannula 55.0 Nasal Cannula 55.0 02/23/20 19:36 107 02/23/20 19:00 110 16 87/47 (60) 77 02/23/20 18:00 110 17 86/39 (55) 78 02/23/20 17:00 108 16 85/49 (61) 79 02/23/20 16:00 111 02/23/20 16:00 97.2 112 21 86/50 (62) 87 02/23/20 16:00 Nasal Cannula 55.0 Nasal Cannula 55.0 02/23/20 15:39 89 High Flow 55.0 100 02/23/20 15:00 112 20 95/54 (68) 86 02/23/20 14:00 114 19 96/54 (68) 80 02/23/20 13:00 114 19 75/41 (52) 77 02/23/20 13:00 110 19 75/41 (52) 76 02/23/20 12:00 97.0 111 19 98/51 (67) 85 02/23/20 12:00 Nasal Cannula 55.0 Nasal Cannula 55.0 02/23/20 12:00 63 02/23/20 11:35 86 High Flow 55.0 100 02/23/20 11:00 71 21 114/50 (71) 88 02/23/20 10:00 73 19 101/49 (66) 88 02/23/20 09:00 76 23 97/38 (57) 90 Labs: Labs Test 02/21/20 13:00 02/21/20 13:18 02/21/20 17:24 02/21/20 18:47 Urine Random Sodium 33 mmol/L (20-110) Urine Creatinine 92.2 MG/DL (30.0-125.0) Arterial Blood pH 7.214 (7.350-7.450) Arterial Blood Partial Pressure CO2 41.3 mmHg (35.0-45.0) Arterial Blood Partial Pressure O2 56.9 mmHg (75.0-100.0) Arterial Blood HCO3 16.3 mmol/L (22.0-26.0) Arterial Blood Oxygen Saturation 83.9 % (95-100) Arterial Blood Base Excess -10.7 (-2-2) Nba Test Positive Test 02/22/20 04:20 02/22/20 12:20 02/23/20 04:25 02/23/20 11:44 Sodium Level 145 MMOL/L (136-145) 142 MMOL/L (136-145) Potassium Level 5.6 MMOL/L (3.5-5.1) 5.7 MMOL/L (3.5-5.1) Chloride Level 111 MMOL/L (98-107) 109 MMOL/L (98-107) Carbon Dioxide Level 21 MMOL/L (21-32) 20 MMOL/L (21-32) Anion Gap 13 mmol/L (5-15) 13 mmol/L (5-15) Blood Urea Nitrogen 113 mg/dL (7-18) 120 mg/dL (7-18) Creatinine 4.0 MG/DL (0.55-1.30) 4.3 MG/DL (0.55-1.30) Estimat Glomerular Filtration Rate 14.7 mL/min (>60) 13.5 mL/min (>60) Glucose Level 337 MG/DL (74-106) 282 MG/DL (74-106) Uric Acid 12.0 MG/DL (2.6-7.2) Calcium Level 7.2 MG/DL (8.5-10.1) 6.3 MG/DL (8.5-10.1) White Blood Count 21.4 K/UL (4.8-10.8) Red Blood Count 3.15 M/UL (4.70-6.10) Hemoglobin 8.8 G/DL (14.2-18.0) Hematocrit 27.4 % (42.0-52.0) Mean Corpuscular Volume 87 FL (80-99) Mean Corpuscular Hemoglobin 27.9 PG (27.0-31.0) Mean Corpuscular Hemoglobin Concent 32.0 G/DL (32.0-36.0) Red Cell Distribution Width 15.1 % (11.6-14.8) Platelet Count 293 K/UL (150-450) Mean Platelet Volume 5.5 FL (6.5-10.1) Neutrophils (%) (Auto) % (45.0-75.0) Lymphocytes (%) (Auto) % (20.0-45.0) Monocytes (%) (Auto) % (1.0-10.0) Eosinophils (%) (Auto) % (0.0-3.0) Basophils (%) (Auto) % (0.0-2.0) Differential Total Cells Counted 100 Neutrophils % (Manual) 92 % (45-75) Lymphocytes % (Manual) 5 % (20-45) Monocytes % (Manual) 3 % (1-10) Eosinophils % (Manual) 0 % (0-3) Basophils % (Manual) 0 % (0-2) Band Neutrophils 0 % (0-8) Platelet Estimate Adequate Platelet Morphology Normal Hypochromasia 1+ Anisocytosis 1+ Total Bilirubin 0.3 MG/DL (0.2-1.0) Aspartate Amino Transf (AST/SGOT) 24 U/L (15-37) Alanine Aminotransferase (ALT/SGPT) 13 U/L (12-78) Alkaline Phosphatase 106 U/L (46-116) Total Protein 5.8 G/DL (6.4-8.2) Albumin 1.2 G/DL (3.4-5.0) Globulin 4.6 g/dL Albumin/Globulin Ratio 0.3 (1.0-2.7) Test 02/23/20 18:03 02/23/20 22:42 02/24/20 05:12 POC Whole Blood Glucose 223 MG/DL (74-106) Laboratory Tests Test 02/23/20 11:44 02/23/20 18:03 02/23/20 22:42 02/24/20 05:12 POC Whole Blood Glucose Pending 223 MG/DL (74-106) H Pending Pending Objective: deferred due to COVID Accucheck: 175 Alfred Chavez MD Feb 24, 2020 08:27
[2020-02-24] MEDS ORDERED: Enoxaparin 30mg Inj SUBQ SCH (09:00)
[2020-02-24] MEDS ORDERED: Tamsulosin 0.4mg cap ORAL SCH (09:00)
[2020-02-24] MEDS ORDERED: Carvedilol 6.25mg Tab ORAL SCH (09:00)
[2020-02-24] MEDS ORDERED: Pantoprazole Inj IVP SCH (09:00)
[2020-02-24] MEDS ORDERED: Solu-MEDROL 125mg Inj IVP SCH (09:00)
[2020-02-24] MEDS ORDERED: Aspirin Baby 81mg ORAL SCH (09:00)
[2020-02-24] MEDS ORDERED: Micafungin 100 MG in NS 110 ML IVPB SCH (09:00)
--- NOTE | 2020-02-24 10:45 | Infectious Diseases Prog Note ---
Assessment/Plan Assessment/Plan antibiotics : ceftriaxone, micafungin A 1. COVID 19 pneumonia on 55 liters O2, saturation 88 percent s/p ivermectin 9.5.20 2. diabetes mellitus 3. klebsiella sepsis secondary to UTI 4. klebsiella UTI 5. renal failure 6. leucocytosis secondary to steroids P 1. continue solumedrol 2. continue ceftriaxone 2 more days 3. continue micafungin 4. will follow up cultures Subjective ROS Limited/Unobtainable: Yes Allergies: Coded Allergies: IODINE (Verified Allergy, Unknown, 02/17/20) Uncoded Allergies: SHELLFISH (Allergy, Unknown, 02/17/20) Objective Last 24 Hour Vital Signs Date Time Temp Pulse Resp B/P (MAP) Pulse Ox O2 Delivery O2 Flow Rate FiO2 02/24/20 08:24 77 98/48 02/24/20 08:00 97.5 77 16 98/48 (65) 76 02/24/20 08:00 Nasal Cannula 55.0 Non-Rebreather 02/24/20 07:12 77 High Flow 55.0 100 02/24/20 04:00 97.3 65 18 101/56 (71) 86 02/24/20 04:00 Nasal Cannula 55.0 Non-Rebreather 02/24/20 03:38 85 High Flow 55.0 100 02/24/20 03:37 79 02/24/20 00:00 97.3 70 18 90/44 (59) 83 02/24/20 00:00 Nasal Cannula 55.0 Nasal Cannula 55.0 02/23/20 23:29 66 02/23/20 23:13 86 High Flow 55.0 100 02/23/20 22:00 97.5 111 16 92/45 (61) 80 02/23/20 21:00 112 19 78/50 (59) 83 02/23/20 20:01 83 High Flow 55.0 100 02/23/20 20:00 97.3 110 16 86/41 (56) 80 02/23/20 20:00 Nasal Cannula 55.0 Nasal Cannula 55.0 02/23/20 19:36 107 02/23/20 19:00 110 16 87/47 (60) 77 02/23/20 18:00 110 17 86/39 (55) 78 02/23/20 17:00 108 16 85/49 (61) 79 02/23/20 16:00 111 02/23/20 16:00 97.2 112 21 86/50 (62) 87 02/23/20 16:00 Nasal Cannula 55.0 Nasal Cannula 55.0 02/23/20 15:39 89 High Flow 55.0 100 02/23/20 15:00 112 20 95/54 (68) 86 02/23/20 14:00 114 19 96/54 (68) 80 02/23/20 13:00 114 19 75/41 (52) 77 02/23/20 13:00 110 19 75/41 (52) 76 02/23/20 12:00 97.0 111 19 98/51 (67) 85 02/23/20 12:00 Nasal Cannula 55.0 Nasal Cannula 55.0 02/23/20 12:00 63 02/23/20 11:35 86 High Flow 55.0 100 02/23/20 11:00 71 21 114/50 (71) 88 Height (Feet): 5 Height (Inches): 11.00 Weight (Pounds): 175 Laboratory Tests Test 02/23/20 11:44 02/23/20 18:03 02/23/20 22:42 02/24/20 05:12 POC Whole Blood Glucose Pending 223 MG/DL (74-106) H Pending Pending Current Medications Medications (Trade) Dose Ordered Sig/Carlos A Route PRN Reason Start Time Stop Time Status Last Admin Dose Admin Acetaminophen (Tylenol) 650 mg Q6H PRN ORAL For Headache 02/23/20 21:48 03/24/20 21:47 Acetaminophen (Tylenol) 650 mg Q6H PRN RECTAL Temp >100.5 02/23/20 21:48 03/24/20 21:47 Albuterol Sulfate (Proventil MDI) 2 puff Q6H PRN INH Shortness of Breath 02/23/20 21:48 05/23/20 21:47 Aspirin (ASA) 81 mg DAILY ORAL 02/24/20 09:00 04/03/20 08:59 Atorvastatin Calcium (Lipitor) 40 mg BEDTIME ORAL 02/24/20 21:00 05/18/20 20:59 Carvedilol (Coreg) 6.25 mg EVERY 12 HOURS ORAL 02/24/20 09:00 03/19/20 08:59 Ceftriaxone Sodium 1 gm/ Dextrose 55 ml @ 110 mls/hr Q24H IVPB 02/24/20 12:00 02/28/20 11:59 Dextrose (Dextrose 50%) 25 ml Q30M PRN IV Hypoglycemia 02/23/20 22:00 05/21/20 03:29 Dextrose (Dextrose 50%) 50 ml Q30M PRN IV Hypoglycemia 02/23/20 22:00 05/21/20 03:29 Enoxaparin Sodium (Lovenox) 30 mg DAILY SUBQ 02/24/20 09:00 05/18/20 08:59 02/24/20 08:32 Ferrous Sulfate (Feosol) 325 mg DAILY ORAL 02/24/20 09:00 05/18/20 08:59 Finasteride (Proscar) 5 mg DAILY ORAL 02/24/20 09:00 05/18/20 08:59 Insulin Aspart (NovoLOG) EVERY 6 HOURS SUBQ 02/24/20 00:00 05/21/20 06:29 Insulin Aspart (NovoLOG) 6 units Q6HR SUBQ 02/24/20 00:00 05/22/20 00:00 Levetiracetam 100 ml @ 400 mls/hr Q12HR IVPB 02/23/20 21:50 05/23/20 21:49 02/24/20 08:24 Methylprednisolone Sodium Succinate (Solu-MEDROL) 60 mg Q12HR IVP 02/24/20 09:00 05/20/20 20:59 02/24/20 08:24 Micafungin Sodium 100 mg/Sodium Chloride 110 ml @ 110 mls/hr Q24H IVPB 02/24/20 09:00 03/01/20 08:59 02/24/20 08:24 Ondansetron HCl (Zofran) 4 mg Q6H PRN IVP Nausea & Vomiting 02/23/20 21:50 03/24/20 21:49 Pantoprazole (Protonix) 40 mg EVERY 12 HOURS IVP 02/24/20 09:00 03/19/20 20:59 02/24/20 08:23 Sodium Chloride 1,000 ml @ 150 mls/hr Q6H40M IV 02/23/20 21:47 03/24/20 21:46 02/24/20 04:27 Sodium Chloride 1,000 ml @ 999 mls/hr Q1H1M PRN IV SBP >90 02/23/20 22:15 03/24/20 22:14 02/23/20 22:47 Tamsulosin HCl (Flomax) 0.4 mg DAILY ORAL 02/24/20 09:00 03/19/20 08:59 Celena Fernando MD Feb 24, 2020 10:45
[2020-02-24 12:00] VITALS: BP 86/49
[2020-02-24] MEDS ORDERED: cefTRIAXone 1 GM in D5W 55 ML IVPB SCH (12:00)
--- NOTE | 2020-02-24 13:36 | Nephrology Progress Note ---
Assessment/Plan Problem List: (1) Acute hypoxemic respiratory failure due to COVID-19 (2) Severe sepsis (3) Metabolic acidosis (4) ALMAZ (acute kidney injury) (5) COVID-19 (6) Pneumonia involving left lung (7) UTI (urinary tract infection) (8) Hypoxia Plan bicarb drip, hypotensive, SS inulin additional lispro,prerenal indices , lasix for K diuresis and oliguria now dnr, grave prognosis Subjective ROS Limited/Unobtainable: Yes Objective Objective Last 24 Hour Vital Signs Date Time Temp Pulse Resp B/P (MAP) Pulse Ox O2 Delivery O2 Flow Rate FiO2 02/24/20 12:04 48 28 77 100 02/24/20 12:04 48 28 77 Bi-Pap 100 02/24/20 12:04 73 Bi-Pap 100 02/24/20 12:00 Nasal Cannula 55.0 Non-Rebreather 02/24/20 12:00 98.6 53 15 86/49 (61) 72 02/24/20 08:24 77 98/48 02/24/20 08:00 97.5 77 16 98/48 (65) 76 02/24/20 08:00 Nasal Cannula 55.0 Non-Rebreather 02/24/20 07:50 75 02/24/20 07:12 77 High Flow 55.0 100 02/24/20 04:00 97.3 65 18 101/56 (71) 86 02/24/20 04:00 Nasal Cannula 55.0 Non-Rebreather 02/24/20 03:38 85 High Flow 55.0 100 02/24/20 03:37 79 02/24/20 00:00 97.3 70 18 90/44 (59) 83 02/24/20 00:00 Nasal Cannula 55.0 Nasal Cannula 55.0 02/23/20 23:29 66 02/23/20 23:13 86 High Flow 55.0 100 02/23/20 22:00 97.5 111 16 92/45 (61) 80 02/23/20 21:00 112 19 78/50 (59) 83 02/23/20 20:01 83 High Flow 55.0 100 02/23/20 20:00 97.3 110 16 86/41 (56) 80 02/23/20 20:00 Nasal Cannula 55.0 Nasal Cannula 55.0 02/23/20 19:36 107 02/23/20 19:00 110 16 87/47 (60) 77 02/23/20 18:00 110 17 86/39 (55) 78 02/23/20 17:00 108 16 85/49 (61) 79 02/23/20 16:00 111 02/23/20 16:00 97.2 112 21 86/50 (62) 87 02/23/20 16:00 Nasal Cannula 55.0 Nasal Cannula 55.0 02/23/20 15:39 89 High Flow 55.0 100 02/23/20 15:00 112 20 95/54 (68) 86 02/23/20 14:00 114 19 96/54 (68) 80 Intake and Output 02/23/20 02/24/20 19:00 07:00 Intake Total 1990 ml 2560.0 ml Output Total 0 ml 250 ml Balance 1990 ml 2310.0 ml Intake IV Total 1990 ml 2560.0 ml Output Urine Total 0 ml 250 ml # Bowel Movements 5 2 Laboratory Tests 02/23/20 18:03: POC Whole Blood Glucose 223H 02/23/20 22:42: POC Whole Blood Glucose [Pending] 02/24/20 05:12: POC Whole Blood Glucose [Pending] 02/24/20 12:11: POC Whole Blood Glucose 254H Height (Feet): 5 Height (Inches): 11.00 Weight (Pounds): 175 General Appearance: severe distress Cardiovascular: regular rhythm Respiratory/Chest: accessory muscle use, rhonchi - bilaterally Abdomen: non tender Extremities: trace edema Neurologic: unresponsive Jose F Patel MD Feb 24, 2020 13:36
--- NOTE | 2020-02-24 14:45 | Surgery Progress Note ---
Surgery Progress Note Subjective Symptoms: worse, other Additional Comments wbc worse exam stable comfortable no n/v Objective Last 24 Hour Vital Signs Date Time Temp Pulse Resp B/P (MAP) Pulse Ox O2 Delivery O2 Flow Rate FiO2 02/24/20 12:04 48 28 77 100 02/24/20 12:04 48 28 77 Bi-Pap 100 02/24/20 12:04 73 Bi-Pap 100 02/24/20 12:00 Nasal Cannula 55.0 Non-Rebreather 02/24/20 12:00 98.6 53 15 86/49 (61) 72 02/24/20 12:00 63 02/24/20 12:00 100.0 02/24/20 10:46 39 02/24/20 08:24 77 98/48 02/24/20 08:00 97.5 77 16 98/48 (65) 76 02/24/20 08:00 55.0 100 02/24/20 08:00 Nasal Cannula 55.0 Non-Rebreather 02/24/20 07:50 75 02/24/20 07:12 77 High Flow 55.0 100 02/24/20 04:00 97.3 65 18 101/56 (71) 86 02/24/20 04:00 Nasal Cannula 55.0 Non-Rebreather 02/24/20 03:38 85 High Flow 55.0 100 02/24/20 03:37 79 02/24/20 00:00 97.3 70 18 90/44 (59) 83 02/24/20 00:00 Nasal Cannula 55.0 Nasal Cannula 55.0 02/23/20 23:29 66 02/23/20 23:13 86 High Flow 55.0 100 02/23/20 22:00 97.5 111 16 92/45 (61) 80 02/23/20 21:00 112 19 78/50 (59) 83 02/23/20 20:01 83 High Flow 55.0 100 02/23/20 20:00 97.3 110 16 86/41 (56) 80 02/23/20 20:00 Nasal Cannula 55.0 Nasal Cannula 55.0 02/23/20 19:36 107 02/23/20 19:00 110 16 87/47 (60) 77 02/23/20 18:00 110 17 86/39 (55) 78 02/23/20 17:00 108 16 85/49 (61) 79 02/23/20 16:00 111 02/23/20 16:00 97.2 112 21 86/50 (62) 87 02/23/20 16:00 Nasal Cannula 55.0 Nasal Cannula 55.0 02/23/20 15:39 89 High Flow 55.0 100 02/23/20 15:00 112 20 95/54 (68) 86 I&O Intake and Output 02/23/20 02/24/20 19:00 07:00 Intake Total 1990 ml 2560.0 ml Output Total 0 ml 250 ml Balance 1990 ml 2310.0 ml Intake IV Total 1990 ml 2560.0 ml Output Urine Total 0 ml 250 ml # Bowel Movements 5 2 Dressing: other Wound: other Cardiovascular: RSR Respiratory: decreased breath sounds Abdomen: soft, non-tender, present bowel sounds Extremities: no tenderness, no cyanosis Laboratory Tests Test 02/23/20 18:03 02/23/20 22:42 02/24/20 05:12 02/24/20 12:11 POC Whole Blood Glucose 223 MG/DL (74-106) H Pending Pending 254 MG/DL (74-106) H Plan Problems: (1) Sacral decubitus ulcer Assessment & Plan: Pt presented on admission with multiple Pressure injuries, MASD. Ecchymotic areas R ventral forearm. Unstageable Sacral Pressure injury(L)11cm x (W)9.5cm. Base of wound is 25% kinza, 75%scattered areas of mixed soft necrosis and slough. Borders are irregular and macerated. Periwound is indurated with additional erythema and shearing. Partial thickness Pressure injury upper R Buttocks(L)2.2cm x (W)1.5cm. Base of wound is moist and viable. Edges flat and adherent to base of wound. MASD Suprapubis, penis ,scrotum ,Elvia-anal,and medial/ posterior upper aspects of both thighs.Affected areas are erythematous with scattered satellite lesions. Full thickness ulcer distal /medial L lower ext in close proximity medial malleolus(L)1.8cm x (W)1.6cm. Base of wound is 90% dry brown eschar cap ,10% kinza . Edges adherent to base of wound. No elevation in skin temp, erythema or induration periwound. R Heel is boggy with non-Blanchable erythema. L Heel is boggy but blanchable. R 1st metatarsal nailbed and matrix are black.NO erythema or changes in skin temp or colour noted to R 1st metatarsal. Tx.Plan: Cleanse Sacral wound with Saline. Apply TheraHoney. Apply Moisture Barrier Periwound. Cover with Optifoam drsg Daily and prn. Cleanse wound distal/ medial L lower ext. Apply Cavilon Skin Barrier periwound. Cover with Optifoam drsg. Change every 3 days and prn. Apply Cavilon Skin Barrier to bilat heels and Malleoli. Cover each site with Optifoam drsg. Change every 7 days and prn. Reposition at least every 2hours or as tolerated. Off-load heels with pillow. APM/SHAREE Mattress overlay. (2) Malnutrition (3) Leukocytosis Assessment & Plan: COVID + declining respiratory declining family has decided for DNI/dNR no line no intubation prognosis guarded (4) Hypoxia (5) UTI (urinary tract infection) (6) Pneumonia involving left lung (7) COVID-19 Assessment & Plan: ++ (8) Hyperglycemia (9) Renal failure Jorge Howard Feb 24, 2020 14:45
[2020-02-24 16:00] VITALS: BP 66/54
--- NOTE | 2020-02-24 17:49 | Emergency Room Report ---
Physical Exam Vital Signs Date Time Temp Pulse Resp B/P (MAP) Pulse Ox O2 Delivery O2 Flow Rate FiO2 02/20/20 07:00 100 34 122/53 (76) 90 02/20/20 07:00 High Flow 55.0 100 02/20/20 08:00 98.9 Medical Decision Making Diagnostic Impression: Primary Impression: Pneumonia involving left lung Qualified Codes: J18.9 - Pneumonia, unspecified organism Additional Impressions: COVID-19 Hyperglycemia Sacral decubitus ulcer Qualified Codes: L89.153 - Pressure ulcer of sacral region, stage 3 Renal failure Qualified Codes: N19 - Unspecified kidney failure Malnutrition Qualified Codes: E43 - Unspecified severe protein-calorie malnutrition Hypoxia UTI (urinary tract infection) Qualified Codes: N39.0 - Urinary tract infection, site not specified ER Course Called to patient's room to pronounce time of . Patient admitted for COVID -19 pneumonia and was DNR/DNI. Vital signs were lost approximately 30 minutes prior to my arrival. No electrical cardiac activity on monitor. No audible heart sounds, no spontaneous respirations. Pupils were nonreactive to light. Time of per my exam 1740. Last Vital Signs Date Time Temp Pulse Resp B/P (MAP) Pulse Ox O2 Delivery O2 Flow Rate FiO2 02/24/20 16:00 48 02/24/20 16:00 98.9 17 66/54 (58) 73 02/24/20 16:00 Bi-pap Bi-pap 02/24/20 15:05 100 02/24/20 12:00 55.0 Disposition: Condition: Referrals: NON PHYSICIAN (PCP) Branden Doyle MD Feb 24, 2020 17:49
[2020-02-24] MEDS ORDERED: 1/2 NS 1000ml IV ONE ×2 (18:39)
[2020-02-24] MEDS ORDERED: Tubing IV Secondary IV ONE (18:39)
[2020-02-24] MEDS ORDERED: Atorvastatin 20mg tab ORAL SCH (21:00)
--- NOTE | 2020-02-26 16:28 | Discharge Summary ---
Discharge Summary Discharge Summary _ DATE OF ADMISSION: 02/17/2020 DATE OF DISCHARGE: 02/24/2020 BRIEF SUMMARY: Patient is an unfortunate 75-year-old male, who was [facility] due to shortness of breath. He recently tested positive for COVID-19. Patient desaturated with O2 saturation of 83%. He was saturating 90 % on 100% nonrebreather. Blood glucose in the field was 450. 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 Upon evaluation at ED, blood gas showed O2 of 66, PCO2 of 27, pH 7.25 with bicarb of 17. Patient has mixed respiratory alkalosis with possibly metabolic acidosis. Chest x-ray showed bilateral infiltrates and changes consistent with COPD. Blood work showed minimally elevated white count but with left shift. Hemoglobin 8.8 and hematocrit 25. BUN 54 and creatinine 2.8. D-dimer was elevated to 10. CRP 36. Lactic acid 2.0. BNP 4328. Urinalysis showed 3+ leukocyte esterase, too numerous to count urine RBC, too numerous to count urine WBC. He was given ceftriaxone and azithromycin. Rapid COVID-19 test was positive. He was started on dexamethasone. His prognosis was poor. He was placed on isolation. He was admitted to monitored floor. He was closely followed by infectious diseases specialist. He was continued on dexamethasone. Patient did not qualify for MDS severe. He was given 1 dose of ivermectin. Azithromycin was discontinued. He was continued on ceftriaxone. Kidney function was monitored. On admission, he was noted to have unstageable decubitus ulcer and multiple skin concerns and wounds. Surgery was called to evaluate and assist with care. Patient had an unstageable sacral pressure ulcer; partial-thickness pressure injury on the right upper buttocks; full-thickness ulcer on the distal/medial left lower extremity in close proximity with the medial malleolus; MAST supra pubis, penis, scrotum, perianal and both thighs with erythema and scattered satellite lesions. Both heels were boggy. He was given local wound care. He was placed on APM/SHAREE overlay mattress with frequent repositioning and offloading. Blood culture and urine culture showed growth of Klebsiella. Ceftriaxone was discontinued. He was started on Zosyn. Patient was eventually transferred to ICU. He was placed on prone position. Decadron was discontinued. He was started on Solu-Medrol. He continued to require high flow O2. Per family, no intubation. Family decided for DNR/DNI. He was given supportive care. His respirations continued to decline. He was saturating on high 80s on 55 L O2. Renal failure was getting worse. He was eventually placed on bicarb drip. He was having episodes of hypotension. Patient had blisters on the body that showed growth of Renetta. He was eventually started on micafungin. Patient continued to decline. He was desaturating and was hypotensive. Patient eventually . FINAL DIAGNOSES: Acute hypoxemic respiratory failure due to COVID-19 pneumonia Klebsiella sepsis secondary to UTI Urinary tract infection with Klebsiella Acute on chronic renal failure Diabetes Hyperlipidemia Previous [employer]CLE SAW O[employer]ATOR shunt Elevated d-dimer Anemia Fungemia Hypotension Multiple decubitus ulcer, present on admission Malnutrition Metabolic acidosis DISPOSITION: Patient . I have been assigned to complete a discharge summary on this account, I was not involved with the patient's management.--DENNIS Ibarra Jacqueline Robles NP Feb 26, 2020 16:28
== END 2020-02-24 18:40 | disposition expired | DRG 871 ==
LOC: EDBD 20:37 → EMR 21:00 → 2E 21:17 → EDBEDREQ 22:45 → ICU 02-18 14:49 → 2W 02-23 21:36
DX: A41.59 Other Gram-negative sepsis (principal); L89.153 Pressure ulcer of sacral region, stage 3; U07.1 COVID-19; J12.89 Other viral pneumonia; J96.01 Acute respiratory failure with hypoxia; E43 Unspecified severe protein-calorie malnutrition; N39.0 Urinary tract infection, site not specified; N17.9 Acute kidney failure, unspecified; B49 Unspecified mycosis; L89.00 Pressure ulcer of unspecified elbow; L89.626 Pressure-induced deep tissue damage of left heel; Z68.25 Body mass index [BMI] 25.0-25.9, adult; I12.9 Hypertensive chronic kidney disease with stage 1 through stage 4 chronic kidney disease, or unspecified chronic kidney disease; E11.22 Type 2 diabetes mellitus with diabetic chronic kidney disease; N18.9 Chronic kidney disease, unspecified; R62.7 Adult failure to thrive; N40.0 Benign prostatic hyperplasia without lower urinary tract symptoms; G40.909 Epilepsy, unspecified, not intractable, without status epilepticus; I95.9 Hypotension, unspecified; Z66 Do not resuscitate
CPT/HCPCS: 36415; 36600; 71045; 80048; 80053; 80170; 80299; 81003; 82550; 82570; 82803; 82962; 83036; 83605; 83735; 83880; 84300; 84484; 84550; 85007; 85025; 85379; 86140; 87040; 87070; 87081; 87086; 87181; 87205; 93005; 94660; 94664; 96361; 96365; 96367; 99285; J1580; J1815; J7030; U0002